=== PATIENT | male | born 1935 | race Caucasian/White ===

== ENCOUNTER 2017-02-21 16:35 | Inpatient (IN) ==
[2017-02-21] MEDS ORDERED: ASPIRIN 325 MG TABLET PO STA (16:48)
[2017-02-21] MEDS ORDERED: ONDANSETRON 4 MG/2 ML VIAL IV STA (16:48)
[2017-02-21] MEDS ORDERED: SODIUM CHLORIDE 0.9% 500 ML IV STA (16:48)
[2017-02-21] MEDS ORDERED: NITROGLYCERIN 2% OINT 1 INCH/GM PACK TOP STA (16:48)
[2017-02-21] MEDS ORDERED: MORPHINE 2 MG/1 ML SYRINGE IV STA (16:48)
[2017-02-21] MEDS ORDERED: DILTIAZEM 50 MG/10 ML VIAL IV STA (17:00)
[2017-02-21 17:02] LABS: Basophils % 0.6 % (0.0-0.8); Eosinophils # 0.1 10*3/uL (0.0-0.87); Eosinophils % 1.9 % (0.00-10.9); Hematocrit 36.4 VOL% (42.0-52.0); Hemoglobin 11.8 GM/DL (14.0-18.0); Immature Granulocytes % 0.4 %; Immature Granulocytes Absolute 0.02 #; Lymphocytes # 0.9 10*3/uL (1.4-4.0); Lymphocytes % 17.3 % (21.2-54.2); Mean Corpuscular HGB Conc 32.4 GM/DL (32-36); Mean Corpuscular Hemoglobin 30 PG (27-34); Mean Corpuscular Volume 92.9 FL (87-102); Mean Platelet Volume 9.8 FL (9.6-12.0); Monocytes # 0.4 10*3/uL (0.11-0.8); Monocytes % 8.2 % (1.7-12.7); Neutrophils # 3.7 10*3/uL (1.4-7.4); Neutrophils % 71.6 % (38.7-73.9); Platelet Count 153 T/CUMM (130-400); Red Blood Count 3.92 MC/CUMM (3.8-5.5); Red Cell Distribution Width 14.7 % (9.3-17.3); White Blood Count 5.1 T/CUMM (4-12)
[2017-02-21] MEDS ORDERED: NITROGLYCERIN 2% OINT 1 INCH/GM PACK TOP ONE (17:13)
[2017-02-21] MEDS ORDERED: DILTIAZEM 100 MG VIAL.ADD IV ONE (17:13)
[2017-02-21] MEDS ORDERED: ONDANSETRON 4 MG/2 ML VIAL ONE (17:13)
--- NOTE | 2017-02-21 17:13 | XRay Report ---
XR chest 1V portable Indication: Chest pain. Chest one view: No comparison. Heart size is normal. Central pulmonary vascular congestion is present with diffuse increased interstitial prominence of the lungs. Somewhat more focal process in the right lung base may be present as well with some scattered air bronchograms and trace pleural effusions. Subpleural septal thickening is noted at both calcemic sulci. Impression: CHF decompensation. Consider early right basilar pneumonia. PROCEDURE INTERPRETED AT [facility] DEPARTMENT OF RADIOLOGY Final Report Signed by: Omar Bautista M.D.
[2017-02-21] MEDS ORDERED: ASPIRIN 325 MG TABLET ONE (17:14)
[2017-02-21] MEDS ORDERED: MORPHINE 2 MG/1 ML SYRINGE ONE (17:14)
[2017-02-21] MEDS ORDERED: DILTIAZEM 50 MG/10 ML VIAL IV ONE (17:14)
[2017-02-21 17:17] LABS: Partial Thromboplastin Time 27.2 SECS (0-40)
[2017-02-21 17:38] LABS: Albumin 3.5 G/DL (3.4-5.0); Bilirubin,Total 0.5 MG/DL (0.2-1.0); Calcium 8.4 MG/DL (8.5-10.1); Magnesium 1.8 MG/DL (1.8-2.4); Osmolality,Calculated 292.7 MOS/KG (273-304); Total Protein 6.4 G/DL (6.4-8.3)
[2017-02-21] MEDS: DILTIAZEM INJ 100 MG in SODIUM CHLORIDE 0.9% 100 ML IV SCH (17:42)
--- NOTE | 2017-02-21 17:42 | Emergency Department Note ---
ILela Gwan, am scribing for, and in the presence of, Fahad Serra MD 17:10. IPonce Robert M, MD, personally performed the services described in this documentation, ascribed by Vipul Vogel in my presence, and it is both accurate and complete [id number] . Arrival - Arrival Chief Complaint: Arrhythmia/Palpitations Stated Complaint: chest pain ED Nursing Triage Note: C/o iregular heart beat and SOB. Onset 2 days ago. Denies any chest pain Mode of Arrival: Stretcher Limitations: No Limitations Source: Patient, Family (Borther ), Old Records Reviewed, RN Notes Reviewed - History of Present Illness HPI Narrative: Patient is a 81 y/o white male who presents to the ED with a c/o SOB, irregular heart beat and chest pain with an onset today. Brother stated that he received a phone call form the patient stating that his heart was "fluttering" and that he was having a hard time breathing. Brother then alerted staff at [facility] which prompted visit to the ED for further evaluation. Brother confirmed that pt has a PMHx of Parkinson's Disease, that pt has a chronic garbled speech and that she is followed by Dr. Chávez. During exam, pt stated that he is not having any sxs now while in ED. Onset (ago): day(s) Consistency: constant Severity: moderate Allergies/Adverse Reactions: Allergies Allergy/AdvReac Type Severity Reaction Status Date / Time codeine Allergy Unknown/Unable Verified 02/21/17 16:40 to obtain Home Medications: Home Medications Medication Instructions Recorded Confirmed Type Aspirin [Ecotrin] 81 mg PO BEDTIME 01/29/15 02/21/17 History Finasteride 5 tablet PO DAILY 01/29/15 02/21/17 History Mirtazapine [Remeron] 30 mg PO BEDTIME 01/29/15 02/21/17 History Montelukast Tab [Singulair Tab] 10 mg PO BEDTIME 01/29/15 02/21/17 History Multivit-Min/FA/Lycopen/Lutein 1 each PO DAILY 01/29/15 02/21/17 History [Centrum Silver Tablet] Nortriptyline [Pamelor] 75 mg PO BEDTIME 01/29/15 02/21/17 History Pantoprazole Tab [Protonix Tab] 40 mg PO DAILY 01/29/15 02/21/17 History Primidone [Mysoline] 50 mg PO BEDTIME 01/29/15 02/21/17 History Sotalol [Betapace] 80 mg PO BID 01/29/15 02/21/17 History Tamsulosin [Flomax] 0.4 mg PO DAILY 01/29/15 02/21/17 History Topiramate [Topamax] 50 mg PO BID 01/29/15 02/21/17 History Acetaminophen/Caffeine [Excedrin 1 each PO DAILY PRN 02/21/17 02/21/17 History Tension Headache Cplt] Donepezil [Aricept] 5 mg PO BEDTIME 02/21/17 02/21/17 History Meloxicam [Mobic] 7.5 mg PO BID 02/21/17 02/21/17 History Multivit-Min/FA/Lutein/Zeaxant 1 each PO DAILY 02/21/17 02/21/17 History [Icaps Mv Tablet] Naproxen Sodium [Aleve] 440 mg PO BID 02/21/17 02/21/17 History Nitroglycerin Sl Tab [Nitrostat] 0.4 mg SL Q5M PRN 02/21/17 02/21/17 History OLANZapine [Olanzapine] 10 mg PO BEDTIME 02/21/17 02/21/17 History Review of System - Review of System 12 point system: reviewed and no additional remarkable complaints except as stated - Review of System Constitutional: Absent: chills, fever Eyes: Absent: discharge Head/Ears/Nose/Throat: Absent: earache Respiratory: Present: as per HPI, other (shortness of breathe ). Absent: cough Cardiovascular: Present: as per HPI, chest pain, palpitations Gastrointestinal: Absent: nausea, vomiting Genitourinary male: Absent: urgency, dysuria Musculoskeletal: Absent: arm pain, back pain, leg pain Skin: Absent: rash, lesions Neurological: Absent: headache, weakness Medical,Surgical,& Family Hx - Medical History Cardio: History of: Cardiac Dysrhythmia, CAD, Hypertension Respiratory: History of: COPD Genitourinary: History of: Prostate Problems - Surgical History Cardiac Surgeries: Sugical HX of: Cardiac Catheterization - Social History Smoking Status: Former smoker Frequency of Alcohol Use: None Type of Drug Use: None Exam Vital Signs: Vital Signs Temperature 97.8 F 02/21/17 16:40 Pulse Rate 108 H 02/21/17 18:02 Respiratory Rate 20 02/21/17 18:02 Blood Pressure 140/68 02/21/17 18:02 O2 Sat by Pulse Oximetry 96 02/21/17 18:02 - General General appearance: alert, in no apparent distress - Head Head exam: Present: atraumatic, normocephalic - Eye Eye exam: Present: normal appearance, PERRL, EOMI - ENT ENT exam: Present: normal oropharynx, mucous membranes moist, TM's normal bilaterally, normal external ear exam - Neck Neck exam: Present: full ROM, trachea midline. Absent: tenderness - Chest Chest inspection: Present: symmetric chest wall rise. Absent: tenderness - Respiratory Respiratory exam: Present: wheezes (left side anterior wheeze noted ) - Cardiovascular Cardiovascular exam: Present: normal rhythm, tachycardia - Abdominal Exam Abdominal exam: Present: soft, normal bowel sounds. Absent: distention, tenderness - Extremities Exam Extremities exam: Present: full ROM. Absent: tenderness - Back Exam Back exam: Present: full ROM. Absent: tenderness - Neurological Exam Neurological exam: Present: alert, oriented X3, CN II-XII intact. Absent: motor sensory deficit - Psychiatric Psychiatric exam: Present: normal affect, normal mood - Skin Skin exam: Present: warm, dry, intact, normal color Course - Consultations Consultation #1: Dr. Dsouza was paged. In addition to the usual medications, he request the patient be given 2 g of magnesium IV and be started on vitamin C 1000 mg p.o. twice daily. Time: 18:28 Results - Labs CBC & BMP: 02/21/17 16:48 02/21/17 17:21 Lab Results: I have reviewed the patients labs Labs: Lab Results WBC 5.1 T/CUMM (4-12) 02/21/17 16:48 RBC 3.92 MC/CUMM (3.8-5.5) 02/21/17 16:48 Hgb 11.8 GM/DL (14.0-18.0) L 02/21/17 16:48 Hct 36.4 VOL% (42.0-52.0) L 02/21/17 16:48 MCV 92.9 FL (87-102) 02/21/17 16:48 MCH 30 PG (27-34) 02/21/17 16:48 MCHC 32.4 GM/DL (32-36) 02/21/17 16:48 RDW 14.7 % (9.3-17.3) 02/21/17 16:48 Plt Count 153 T/CUMM (130-400) 02/21/17 16:48 MPV 9.8 FL (9.6-12.0) 02/21/17 16:48 Neut % (Auto) 71.6 % (38.7-73.9) 02/21/17 16:48 Lymph % (Auto) 17.3 % (21.2-54.2) L 02/21/17 16:48 [place] % (Auto) 8.2 % (1.7-12.7) 02/21/17 16:48 Eos % (Auto) 1.9 % (0.00-10.9) 02/21/17 16:48 Baso % (Auto) 0.6 % (0.0-0.8) 02/21/17 16:48 Neut # (Auto) 3.7 10*3/uL (1.4-7.4) 02/21/17 16:48 Lymph # (Auto) 0.9 10*3/uL (1.4-4.0) L 02/21/17 16:48 [place] # (Auto) 0.4 10*3/uL (0.11-0.8) 02/21/17 16:48 Eos # (Auto) 0.1 10*3/uL (0.0-0.87) 02/21/17 16:48 Baso # (Auto) 0.0 10*3/uL (0.0-0.2) 02/21/17 16:48 Immature Gran % 0.4 % 02/21/17 16:48 Nucleated RBC % 0.0 /100WBC 02/21/17 16:48 Immature Gran # 0.02 # 02/21/17 16:48 Nucleated RBCs # 0.00 10*3/uL 02/21/17 16:48 INR 1.0 02/21/17 16:48 PT Patient/Control Mix 11.0 SECS 02/21/17 16:48 Circ Anticoag PTT 27.2 SECS (0-40) 02/21/17 16:48 Sodium 145 MMOL/L (136-145) 02/21/17 17:21 Potassium 4.0 MMOL/L (3.5-5.1) 02/21/17 17:21 Chloride 113 MMOL/L (98-107) H 02/21/17 17:21 Carbon Dioxide 25 MMOL/L (21-32) 02/21/17 17:21 Anion Gap 11.0 MMOL/L (5.0-15.0) 02/21/17 17:21 BUN 25 MG/DL (7-18) H 02/21/17 17:21 Creatinine 1.30 MG/DL (0.70-1.30) 02/21/17 17:21 GFR Calculation 55 ML/MIN 02/21/17 17:21 BUN/Creatinine Ratio 19.00 RATIO (6.00-20.00) 02/21/17 17:21 Glucose 111 MG/DL (74-106) H 02/21/17 17:21 Calculated Osmolality 292.7 MOS/KG (273-304) 02/21/17 17:21 Calcium 8.4 MG/DL (8.5-10.1) L 02/21/17 17:21 Magnesium 1.8 MG/DL (1.8-2.4) 02/21/17 17:21 Total Bilirubin 0.50 MG/DL (0.2-1.0) 02/21/17 17:21 AST 20 U/L (0-37) 02/21/17 17:21 ALT 19 U/L (16-61) 02/21/17 17:21 Alkaline Phosphatase 90 U/L (45-117) 02/21/17 17:21 Troponin I 0.030 NG/ML (0.00-0.045) 02/21/17 16:48 B-Natriuretic Peptide 334 PG/ML (2-100) H 02/21/17 16:48 Total Protein 6.4 G/DL (6.4-8.3) 02/21/17 17:21 Albumin 3.5 G/DL (3.4-5.0) 02/21/17 17:21 Globulin 2.9 G/DL (2.3-3.5) 02/21/17 17:21 Albumin/Globulin Ratio 1.2 RATIO (1.1-2.2) 02/21/17 17:21 Lipase 199.0 U/L (73-393) 02/21/17 17:21 - EKG EKG results: interpreted by NILSA (afib rvr) Disposition Clinical Impression: Atrial fibrillation Case discussed with: patient, patient's family Disposition: Still a Patient Condition: Stable Instructions: Atrial Fibrillation (ED) Time of Disposition: 18:30
[2017-02-21] MEDS ORDERED: PROMETHAZINE 25 MG TABLET PO PRN (18:31)
[2017-02-21] MEDS ORDERED: MAGNESIUM SULF RIDER 4 GM in PREMIX 1 EACH IV PRN (18:44)
[2017-02-21] MEDS ORDERED: MAGNESIUM SULF RIDER 2 GM in PREMIX 1 EACH IV PRN (18:44)
[2017-02-21] MEDS ORDERED: POTASSIUM CHLORIDE 20 MEQ TABLET PO PRN (18:44)
[2017-02-21] MEDS: ASCORBIC ACID 500 MG TABLET PO SCH (21:31)
[2017-02-21 21:48] LABS: Troponin I Only 0.032 NG/ML (0.00-0.045)
[2017-02-22] MEDS ORDERED: ALBUTEROL/IPRATROPIUM 3 ML NEB RESP TX STA (01:29)
[2017-02-22] MEDS ORDERED: ALBUTEROL/IPRATROPIUM 3 ML NEB RESP TX PRN (01:30)
[2017-02-22] MEDS: DILTIAZEM INJ 100 MG in SODIUM CHLORIDE 0.9% 100 ML IV SCH ×2 (03:31→22:22)
[2017-02-22 04:50] LABS: Troponin I Only 0.032 NG/ML (0.00-0.045)
[2017-02-22] MEDS ORDERED: CAFFEINE PO PRN (08:21)
[2017-02-22] MEDS ORDERED: ACETAMINOPHEN PO PRN (08:21)
[2017-02-22] MEDS ORDERED: NITROGLYCERIN SL 0.4 MG TABLET SL PRN (08:21)
--- NOTE | 2017-02-22 08:25 | Cardiology History & Physical ---
<Susan Mosley E - Last Filed: 02/22/17 08:03> Assessment and Plan - Time spent with patient Time spent with patient: Greater than 30 minutes (1) Atrial fibrillation with RVR Status: Acute Assessment and plan: SEE PLAN OF CARE LISTED BELOW Current Visit: Yes (2) Shortness of breath Status: Acute Assessment and plan: SEE PLAN OF CARE LISTED BELOW Current Visit: Yes (3) CHF (congestive heart failure), NYHA class III Status: Acute Assessment and plan: SEE PLAN OF CARE LISTED BELOW Current Visit: Yes Qualifiers: Congestive heart failure type: diastolic (4) Community acquired pneumonia Status: Acute Assessment and plan: SEE PLAN OF CARE LISTED BELOW Current Visit: Yes (5) Hypertension Status: Chronic Assessment and plan: SEE PLAN OF CARE LISTED BELOW Current Visit: Yes (6) Dyslipidemia Status: Chronic Assessment and plan: SEE PLAN OF CARE LISTED BELOW Current Visit: Yes (7) Risk for falls Status: Chronic Assessment and plan: SEE PLAN OF CARE LISTED BELOW Current Visit: Yes (8) Parkinsons disease Status: Chronic Assessment and plan: SEE PLAN OF CARE LISTED BELOW Current Visit: Yes (9) Hypomagnesemia Status: Acute Assessment and plan: SEE PLAN OF CARE LISTED BELOW Current Visit: Yes (10) CAD (coronary artery disease) Status: Chronic Assessment and plan: SEE PLAN OF CARE LISTED BELOW Current Visit: Yes History of Present Illness Chief complaint: SOB, heart racing History of present illness: SURG PHYSICIAN ASST: DR. CHÁVEZ Mr. Jimenez, 81WM, routinely followed by Dr. Chávez. He was last seen in cardiology clinic July 25, 2016. Risk factors include: Advanced age, known coronary artery disease (status post PCI to RCA 2004), hypertension, dyslipidemia, family history premature coronary artery disease, and sedentary lifestyle. History of paroxysmal atrial fibrillation for which he takes Sotalol. (Due to his advanced age and high falls risk, he takes aspirin only for stroke prevention.) History of Parkinson's disease. Last stress test December 21, 2015 with EF 62% Patient contacted his brother last evening after experiencing worsening shortness of breath. He states he felt his heart racing and as if he could not breathe. He was brought to the emergency department of [facility], found to be in atrial fibrillation with rapid ventricular response, acute CHF and possible pneumonia. He was started on IV diltiazem for rate control. He has been housed in our telemetry unit overnight. Patient's heart rate continues to be uncontrolled around 120 bpm. He continues to be short of breath, possibly minimally better overnight. He denies chest pain, heaviness or tightness. Patient reports that he often feels his heart racing however this was sustained last evening. He has been short of breath over the past 3-4 days but seemed to worsen last evening when he summoned help. He has been orthopneic last evening requiring head of bed to be at 45, JVD 4 cm to jaw. He denies cough or known fever. This morning, I will initiate IV diuretics, strict intake and output, daily weights. Hopefully we can transition him from IV diltiazem to oral calcium channel fareed today will work toward this. IV Levaquin will be initiated to treat his suspected community-acquired pneumonia, carefully watching telemetry monitoring for QT prolongation and arrhythmia. Incentive spirometry and pulmonary toilet will ensue. I do not see a recent echocardiogram and this may be considered in this workup. Will discuss with Dr. Mathew and await additional recommendations. ASSESSMENT/PLAN: 1. ATRIAL FIBRILLATION WITH RVR - currently on IV diltiazem. Will adjust accordingly for better control. Hopefully, we can transition to an oral agent soon. Continue sotalol. Patient has been maintained on aspirin only for stroke prevention due to high falls risk and advanced age. 2. ACUTE CHF - acute CHF secondary to suspected diastolic dysfunction, NYHA CLASS III. IV Lasix, strict intake and output, daily weights. Stress test December 2015 revealed an EF of 62%. Once heart rate is controlled, may benefit from echo. 3. SUSPECTED CAP - 4. HYPERTENSION - usually well controlled. Will adjust medications as needed during hospital stay 5. DYSLIPIDEMIA - continue lipid-lowering agent. Fasting lipid profile in the morning 6. KNOWN CAD - 2005 PCI to RCA in [place], [place]. Troponins negative. No compressive chest pain. 7. PARKINSON'S DISEASE - continue his home meds. 8. HIGH FALLS RISK - Bandon falls prevention protocol 9. HYPOMAGNESEMIA - replace per protocol this morning. Recheck BMP, Mg+ at 2pm today and daily. Home Medications Medication Instructions Recorded Confirmed Type Aspirin [Ecotrin] 81 mg PO BEDTIME 01/29/15 02/21/17 History Finasteride 5 tablet PO DAILY 01/29/15 02/21/17 History Mirtazapine [Remeron] 30 mg PO BEDTIME 01/29/15 02/21/17 History Montelukast Tab [Singulair Tab] 10 mg PO BEDTIME 01/29/15 02/21/17 History Multivit-Min/FA/Lycopen/Lutein 1 each PO DAILY 01/29/15 02/21/17 History [Centrum Silver Tablet] Nortriptyline [Pamelor] 75 mg PO BEDTIME 01/29/15 02/21/17 History Pantoprazole Tab [Protonix Tab] 40 mg PO DAILY 01/29/15 02/21/17 History Primidone [Mysoline] 50 mg PO BEDTIME 01/29/15 02/21/17 History Sotalol [Betapace] 80 mg PO BID 01/29/15 02/21/17 History Tamsulosin [Flomax] 0.4 mg PO DAILY 01/29/15 02/21/17 History Topiramate [Topamax] 50 mg PO BID 01/29/15 02/21/17 History Acetaminophen/Caffeine [Excedrin 1 each PO DAILY PRN 02/21/17 02/21/17 History Tension Headache Cplt] Donepezil [Aricept] 5 mg PO BEDTIME 02/21/17 02/21/17 History Meloxicam [Mobic] 7.5 mg PO BID 02/21/17 02/21/17 History Multivit-Min/FA/Lutein/Zeaxant 1 each PO DAILY 02/21/17 02/21/17 History [Icaps Mv Tablet] Naproxen Sodium [Aleve] 440 mg PO BID 02/21/17 02/21/17 History Nitroglycerin Sl Tab [Nitrostat] 0.4 mg SL Q5M PRN 02/21/17 02/21/17 History OLANZapine [Olanzapine] 10 mg PO BEDTIME 02/21/17 02/21/17 History Allergies Allergy/AdvReac Type Severity Reaction Status Date / Time codeine Allergy Unknown/Unable Verified 02/21/17 16:40 to obtain Review of systems: REVIEW OF SYSTEMS: - Constitutional Constitutional: Present: Fatigue. Absent: syncope, anorexia, night sweats - EENT Eyes: Absent: blurry vision, loss of vision, diplopia Ears: Absent: decreased hearing, ear pain, ear discharge - Cardiovascular Cardiovascular: Denies: chest pain with exertion. Dyspnea at rest and on exertion. Denies edema, frequent palpitations. Absent: chest pain with deep breath, claudication - Respiratory Respiratory: Present: BLACK, denies cough. Denies hemoptysis - Gastrointestinal Gastrointestinal: Denies: constipation. Absent: abdominal pain, hematemesis, hematochezia, melena, change in bowel habits, nausea - Genitourinary Genitourinary: Absent: difficulty urinating, dysuria, urinary hesitancy, flank pain - Musculoskeletal Musculoskeletal: Present: back pain Absent: joint swelling, muscle cramps, muscle weakness - Neurological Neurological: Present: Poor gait without frequent falls. Patient reports he has not fallen in greater than 1 year. Tremors constant and shuffling gait present. Absent: dizziness, hemiparesis - Psychiatric Psychiatric: Absent: anxiety, depression, difficulty concentrating - Endocrine Endocrine: Present: fatigue. Absent: cold intolerance, heat intolerance, polyuria, polyphagia, polydipsia - Hematologic/Lymphatic Hematologic/Lymphatic: Present: easy bruising. Absent: easy bleeding -Integumentary Integumentary: Absent: lesions, rashes, skin breakdown Medical,Surgical,& Family Hx - Medical History Cardio: History of: Cardiac Dysrhythmia, CAD, Hypertension Neurology: History of: Parkinson's Disease Respiratory: History of: COPD Genitourinary: History of: Prostate Problems Musculoskeletal: No history of: Amputation - Surgical History Cardiac Surgeries: Sugical HX of: Cardiac Catheterization Thoracic Surgeries: Patient denies;: Organ Transplant Abdominal Surgeries: Patient denies: Abdominal Surgery Reproductive Surgeries: Patient denies;: Genitourinary Surgery - Social History Smoking Status: Former smoker Have you smoked in the last 12 months: No Frequency of Alcohol Use: None Type of Drug Use: None Functional capacity: uses cane/walker Cardiology Physical Exam - Constitutional Vitals: Vital Signs Temp Pulse Resp BP Pulse Ox 98 F 114 H 18 115/65 96 02/22/17 07:33 02/22/17 07:33 02/22/17 07:33 02/22/17 07:33 02/22/17 07:33 Intake and Output 02/21/17 02/22/17 02/22/17 23:59 07:59 15:59 Intake Total 760 / 760 220 / 220 Output Total 100 / 100 Balance 760 / 760 120 / 120 Intake: IV 520 / 520 100 / 100 Cardizem Inj 100 mg In Ns 100 / 100 100 ml @ 10 MG/HR 10 mls /hr IV TITRATE MERCEDES Rx#: [id number] Ns 500 ml @ 999 mls/hr IV 500 / 500 1X ED BOLUS STA Rx#: [id number] Oral 240 / 240 120 / 120 Output: Urine 100 / 100 Other: Voiding Method Urinal Weight 77.678 kg 77.564 kg Patient Weight 02/22/17 23:59 Weight 77.564 kg Exam: General: [Elderly gentleman who looks his stated age. Tachypneic. Pleasant and cooperative. ] HEENT: [PERRL, normocephalic, atraumatic. Mucous membranes moist. No jaundice noted. Conjunctiva moist and clear, sclerae anicteric] Neck: 4 cm JVD to jaw. No thyromegaly appreciated. No lymphadenopathy. No carotid bruit appreciated Cardiac: [Irregularly irregular rhythm, tachycardic rate. [No obvious murmur rub or gallop.] Lungs: [Respiratory crackles noted posteriorly midway up both lung valenzuela, rhonchi noted throughout. ] Oxygen in use via nasal cannula Abdomen: Soft, bowel sounds normoactive. Nontender and nondistended. No abdominal bruit or thrill noted. No masses noted. Musculoskeletal: No fluid collection. Decreased range of motion is noted. Extremities: No clubbing, cyanosis noted. [ No edema noted.] Upper extremity pulses 2+. Lower extremity pulses 2+. Capillary refill less than 3 seconds. Skin: No unusual lesions or rashes. No skin breakdown appreciated. Neuro: Awake, alert and oriented 3. Moves all extremities well without hemiparesis or paralysis. Parkinsonian tremor present. Result/EKG - Labs CBC & BMP: 02/21/17 16:48 02/21/17 17:21 Lab Results: I have reviewed the past 24 hour labs Labs: Laboratory Results - last 24 hr 02/21/17 02/21/17 02/21/17 16:48 16:48 16:48 WBC 5.1 RBC 3.92 Hgb 11.8 L Hct 36.4 L MCV 92.9 MCH 30 MCHC 32.4 RDW 14.7 Plt Count 153 MPV 9.8 Neut % (Auto) 71.6 Lymph % (Auto) 17.3 L Winn % (Auto) 8.2 Eos % (Auto) 1.9 Baso % (Auto) 0.6 Neut # (Auto) 3.7 Lymph # (Auto) 0.9 L Winn # (Auto) 0.4 Eos # (Auto) 0.1 Baso # (Auto) 0.0 Immature Gran % 0.4 Nucleated RBC % 0.0 Immature Gran # 0.02 Nucleated RBCs # 0.00 INR 1.0 PT Patient/Control Mix 11.0 Circ Anticoag PTT 27.2 Sodium Potassium Chloride Carbon Dioxide Anion Gap BUN Creatinine GFR Calculation BUN/Creatinine Ratio Glucose Calculated Osmolality Calcium Magnesium Total Bilirubin AST ALT Alkaline Phosphatase Total Creatine Kinase CK-MB (CK-2) Troponin I B-Natriuretic Peptide 334 H Total Protein Albumin Globulin Albumin/Globulin Ratio Lipase 02/21/17 02/21/17 02/21/17 16:48 17:21 21:02 WBC RBC Hgb Hct MCV MCH MCHC RDW Plt Count MPV Neut % (Auto) Lymph % (Auto) Winn % (Auto) Eos % (Auto) Baso % (Auto) Neut # (Auto) Lymph # (Auto) Winn # (Auto) Eos # (Auto) Baso # (Auto) Immature Gran % Nucleated RBC % Immature Gran # Nucleated RBCs # INR PT Patient/Control Mix Circ Anticoag PTT Sodium 145 Potassium 4.0 Chloride 113 H Carbon Dioxide 25 Anion Gap 11.0 BUN 25 H Creatinine 1.30 GFR Calculation 55 BUN/Creatinine Ratio 19.00 Glucose 111 H Calculated Osmolality 292.7 Calcium 8.4 L Magnesium 1.8 Total Bilirubin 0.50 AST 20 ALT 19 Alkaline Phosphatase 90 Total Creatine Kinase 26 L CK-MB (CK-2) 1.6 Troponin I 0.030 0.032 B-Natriuretic Peptide Total Protein 6.4 Albumin 3.5 Globulin 2.9 Albumin/Globulin Ratio 1.2 Lipase 199.0 02/22/17 03:34 WBC RBC Hgb Hct MCV MCH MCHC RDW Plt Count MPV Neut % (Auto) Lymph % (Auto) Winn % (Auto) Eos % (Auto) Baso % (Auto) Neut # (Auto) Lymph # (Auto) Winn # (Auto) Eos # (Auto) Baso # (Auto) Immature Gran % Nucleated RBC % Immature Gran # Nucleated RBCs # INR PT Patient/Control Mix Circ Anticoag PTT Sodium Potassium Chloride Carbon Dioxide Anion Gap BUN Creatinine GFR Calculation BUN/Creatinine Ratio Glucose Calculated Osmolality Calcium Magnesium Total Bilirubin AST ALT Alkaline Phosphatase Total Creatine Kinase 29 L CK-MB (CK-2) 2.0 Troponin I 0.032 B-Natriuretic Peptide Total Protein Albumin Globulin Albumin/Globulin Ratio Lipase - Diagnostic Findings Procedure: Chest x-ray: report reviewed by me - EKG EKG results: interpreted by me EKG shows: atrial fibrillation (RVR) Quality Measures - Stroke Onset of Symptoms Date: 02/19/17 <Seema Mathew - Last Filed: 02/22/17 13:32> Assessment and Plan - Time spent with patient Time spent with patient: Greater than 30 minutes (Exam interview documentation) (1) SVT (supraventricular tachycardia) Status: Acute Current Visit: Yes (2) Pulmonary edema Status: Acute Current Visit: Yes (3) High risk medication use Status: Acute Current Visit: Yes (4) Shortness of breath Status: Acute Current Visit: Yes (5) Hypertension Status: Chronic Current Visit: Yes (6) Dyslipidemia Status: Chronic Current Visit: Yes (7) Risk for falls Status: Chronic Current Visit: Yes (8) Parkinsons disease Status: Chronic Current Visit: Yes (9) CAD (coronary artery disease) Status: Chronic Current Visit: Yes (10) Paroxysmal atrial fibrillation Status: Chronic Current Visit: Yes History of Present Illness History of present illness: Mr. JIMENEZ is a 81 year old male patient seen with Ms. Susan vargas. He is 81 years of age and has a history of paroxysmal atrial relation with preserved ejection fraction he has had a couple of weeks several months of worsening shortness of breath he has Parkinson disease and has just not done well recently. He does ambulate with the assistance of a walker he came in last night with worsening shortness of breath chest x-ray looks like he has a right effusion and fluid in the right major fissure. His exam would suggest that he might have early pneumonitis. His heart rate was up his initial EKG looked like either atrial tachycardia or atrial flutter he has been started on Cardizem infusion looks more like atrial fibrillation nonconducted APCs at this time is very difficult for me to tell I will get an EKG. The telemetry strips are limited. I saw the patient examined the patient discussed with Ms. Susan Mosley NP the patient's family 2 brothers are at the bedside. His is he lives in a personal intermediate he has a son that is a strange that lives in [place]. He does appear to have some mild volume overload and pulmonary edema but he does not have peripheral edema or total body edema. We will try diuresis I will expand his antibiotic coverage to Rocephin and clindamycin. He resides in a assisted living facility but also appears to be high risk for aspiration pneumonitis. He denies coughing whenever he eats. I will get a transthoracic echocardiogram as well. I will ask pulmonary to see with their recommendations continue antibiotics and nebs for now. Cardiology Physical Exam - Constitutional Vitals: Vital Signs Temp Pulse Resp BP Pulse Ox 97.9 F 81 20 123/74 95 02/22/17 12:00 02/22/17 12:00 02/22/17 12:00 02/22/17 12:00 02/22/17 12:00 Intake and Output 02/21/17 02/22/17 02/22/17 23:59 07:59 15:59 Intake Total 760 / 760 220 / 220 Output Total 100 / 100 Balance 760 / 760 120 / 120 Intake: IV 520 / 520 100 / 100 Cardizem Inj 100 mg In Ns / 100 / 100 100 ml @ 10 MG/HR 10 mls /hr IV TITRATE MERCEDES Rx#: [id number] Ns 500 ml @ 999 mls/hr IV 500 / 500 1X ED BOLUS STA Rx#: [id number] Oral 240 / 240 120 / 120 Output: Urine 100 / 100 Other: Voiding Method Urinal Weight 77.678 kg 77.564 kg Patient Weight 02/22/17 23:59 Weight 77.564 kg Exam: He has rales but he also has rhonchi. He has diminished breath sounds even in the left base. He has no dullness to percussion. His cardiac exam is irregular he has no gallop that I can auscultate no diagnosable or significantly audible murmur Result/EKG - Labs CBC & BMP: 02/21/17 16:48 02/21/17 17:21 Labs: Laboratory Results - last 24 hr 02/21/17 02/21/17 02/21/17 16:48 16:48 16:48 WBC 5.1 RBC 3.92 Hgb 11.8 L Hct 36.4 L MCV 92.9 MCH 30 MCHC 32.4 RDW 14.7 Plt Count 153 MPV 9.8 Neut % (Auto) 71.6 Lymph % (Auto) 17.3 L Winn % (Auto) 8.2 Eos % (Auto) 1.9 Baso % (Auto) 0.6 Neut # (Auto) 3.7 Lymph # (Auto) 0.9 L Winn # (Auto) 0.4 Eos # (Auto) 0.1 Baso # (Auto) 0.0 Immature Gran % 0.4 Nucleated RBC % 0.0 Immature Gran # 0.02 Nucleated RBCs # 0.00 INR 1.0 PT Patient/Control Mix 11.0 Circ Anticoag PTT 27.2 Sodium Potassium Chloride Carbon Dioxide Anion Gap BUN Creatinine GFR Calculation BUN/Creatinine Ratio Glucose Calculated Osmolality Calcium Magnesium Total Bilirubin AST ALT Alkaline Phosphatase Total Creatine Kinase CK-MB (CK-2) Troponin I B-Natriuretic Peptide 334 H Total Protein Albumin Globulin Albumin/Globulin Ratio Lipase 02/21/17 02/21/17 02/21/17 16:48 17:21 21:02 WBC RBC Hgb Hct MCV MCH MCHC RDW Plt Count MPV Neut % (Auto) Lymph % (Auto) Winn % (Auto) Eos % (Auto) Baso % (Auto) Neut # (Auto) Lymph # (Auto) Winn # (Auto) Eos # (Auto) Baso # (Auto) Immature Gran % Nucleated RBC % Immature Gran # Nucleated RBCs # INR PT Patient/Control Mix Circ Anticoag PTT Sodium 145 Potassium 4.0 Chloride 113 H Carbon Dioxide 25 Anion Gap 11.0 BUN 25 H Creatinine 1.30 GFR Calculation 55 BUN/Creatinine Ratio 19.00 Glucose 111 H Calculated Osmolality 292.7 Calcium 8.4 L Magnesium 1.8 Total Bilirubin 0.50 AST 20 ALT 19 Alkaline Phosphatase 90 Total Creatine Kinase 26 L CK-MB (CK-2) 1.6 Troponin I 0.030 0.032 B-Natriuretic Peptide Total Protein 6.4 Albumin 3.5 Globulin 2.9 Albumin/Globulin Ratio 1.2 Lipase 199.0 02/22/17 02/22/17 03:34 10:37 WBC RBC Hgb Hct MCV MCH MCHC RDW Plt Count MPV Neut % (Auto) Lymph % (Auto) Winn % (Auto) Eos % (Auto) Baso % (Auto) Neut # (Auto) Lymph # (Auto) Winn # (Auto) Eos # (Auto) Baso # (Auto) Immature Gran % Nucleated RBC % Immature Gran # Nucleated RBCs # INR PT Patient/Control Mix Circ Anticoag PTT Sodium Potassium Chloride Carbon Dioxide Anion Gap BUN Creatinine GFR Calculation BUN/Creatinine Ratio Glucose Calculated Osmolality Calcium Magnesium Total Bilirubin AST ALT Alkaline Phosphatase Total Creatine Kinase 29 L 37 L D CK-MB (CK-2) 2.0 2.2 Troponin I 0.032 0.027 B-Natriuretic Peptide Total Protein Albumin Globulin Albumin/Globulin Ratio Lipase - EKG EKG results: interpreted by me (Atrial tachycardia possible atrial flutter)
[2017-02-22] MEDS ORDERED: MAGNESIUM SULF RIDER 4 GM in PREMIX 1 EACH IV PRN (08:26)
[2017-02-22] MEDS ORDERED: MAGNESIUM SULF RIDER 2 GM in PREMIX 1 EACH IV PRN (08:26)
[2017-02-22] MEDS ORDERED: ENOXAPARIN 80 MG/0.8 ML SYRINGE SUBCUT ONE (08:39)
--- NOTE | 2017-02-22 08:58 | EKG Report ---
Stationary ECG Study 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
[2017-02-22] MEDS ORDERED: PANTOPRAZOLE 40 MG TABLET PO SCH (09:00)
[2017-02-22] MEDS ORDERED: MELOXICAM 7.5 MG TABLET PO SCH (09:00)
[2017-02-22] MEDS ORDERED: NAPROXEN 500 MG TABLET PO SCH (09:00)
[2017-02-22] MEDS: SOTALOL 80 MG TABLET PO SCH ×2 (10:16→21:27)
[2017-02-22] MEDS: PANTOPRAZOLE 40 MG TABLET PO SCH (10:16)
[2017-02-22] MEDS: MULTIVITAMIN (CENTRUM) TABLET PO SCH (10:16)
[2017-02-22] MEDS: MULTIVITAMIN (OCUVITE) TABLET PO SCH (10:17)
[2017-02-22] MEDS: ASCORBIC ACID 500 MG TABLET PO SCH ×2 (10:17→21:32)
[2017-02-22] MEDS: TOPIRAMATE 25 MG TABLET PO SCH ×2 (10:18→21:32)
[2017-02-22] MEDS: TAMSULOSIN 0.4 MG CAPSULE PO SCH (10:18)
[2017-02-22] MEDS: FINASTERIDE 5 MG TABLET PO SCH (10:19)
[2017-02-22] MEDS: FUROSEMIDE 40 MG/4 ML VIAL IV SCH ×2 (10:23→15:52)
[2017-02-22] MEDS ORDERED: DOXYCYCLINE HYCLATE INJ 100 MG in SODIUM CHLORIDE 0.9% 100 ML IV SCH (11:00)
[2017-02-22 11:30] LABS: Troponin I Only 0.027 NG/ML (0.00-0.045)
--- NOTE | 2017-02-22 13:25 | EKG Report ---
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
[2017-02-22] MEDS: DILTIAZEM CD 120 MG CAPSULE PO SCH ×2 (13:42→20:49)
[2017-02-22] MEDS: CLINDAMYCIN INJ 300 MG in PREMIX 1 EACH IV SCH ×2 (13:42→21:46)
[2017-02-22 14:07] LABS: Calcium 8.5 MG/DL (8.5-10.1); Magnesium 1.8 MG/DL (1.8-2.4); Osmolality,Calculated 294.6 MOS/KG (273-304); Potassium 4.3 MMOL/L (3.5-5.1)
[2017-02-22] MEDS: cefTRIAXone 1,000 MG in SODIUM CHLORIDE 0.9% 100 ML IV SCH (14:13)
[2017-02-22] MEDS ORDERED: MORPHINE 2 MG/1 ML SYRINGE IV ONE (14:23)
--- NOTE | 2017-02-22 16:56 | Pulmonology Consult Note ---
Assessment and Plan (1) Atrial fibrillation with RVR Status: Acute Assessment and plan: Rate is better controlled. This certainly may be causing part of his congestive heart failure. Current Visit: Yes (2) CHF (congestive heart failure), NYHA class III Status: Acute Assessment and plan: He has peripheral edema paroxysmal nocturnal dyspnea cardiomegaly and interstitial infiltrates pleural effusions. Has fairly normal ejection fraction. BNP is mildly elevated at 334. I do think he has congestive heart failure and it may well be done by the atrial arrhythmias. However cannot rule out pneumonia. I am not certain about his Parkinson's history but if he does indeed have that then aspiration is a risk. May be worthwhile to have neurology see him. The patient does not know of any history of Parkinson's. However he does have some dementia. I will get a noncontrast chest CT tomorrow to see if the pattern of this is more like pneumonia than heart failure. In the meantime agree with empiric antibiotics. Current Visit: Yes Qualifiers: Congestive heart failure type: diastolic (3) Parkinsons disease Status: Chronic Assessment and plan: This is listed in his history. He is not on any Parkinson's medications. May have cerebellar tremor. Think a neurology consult would be helpful. If he does have Parkinson's and aspiration is certainly a risk Current Visit: Yes History of Present Illness Chief complaint: Shortness of breath History of present illness: Mr. JIMENEZ is a 81 year old male who was admitted with increased shortness of breath over the last 3-4 weeks. He has had a dry cough. There has been no purulent sputum. He has not had any fever or pleuritic pain. He has a remote history of smoking but none recently. It is reported in the chart that he has Parkinson's disease but I do not see any Parkinson's medications on his home medication list. He is on primidone which is normally given for cerebellar tremors. He denies any difficulty swallowing denies reflux or vomiting. Home Medications Medication Instructions Recorded Confirmed Type Aspirin [Ecotrin] 81 mg PO BEDTIME 01/29/15 02/21/17 History Finasteride 5 tablet PO DAILY 01/29/15 02/21/17 History Mirtazapine [Remeron] 30 mg PO BEDTIME 01/29/15 02/21/17 History Montelukast Tab [Singulair Tab] 10 mg PO BEDTIME 01/29/15 02/21/17 History Multivit-Min/FA/Lycopen/Lutein 1 each PO DAILY 01/29/15 02/21/17 History [Centrum Silver Tablet] Nortriptyline [Pamelor] 75 mg PO BEDTIME 01/29/15 02/21/17 History Pantoprazole Tab [Protonix Tab] 40 mg PO DAILY 01/29/15 02/21/17 History Primidone [Mysoline] 50 mg PO BEDTIME 01/29/15 02/21/17 History Sotalol [Betapace] 80 mg PO BID 01/29/15 02/21/17 History Tamsulosin [Flomax] 0.4 mg PO DAILY 01/29/15 02/21/17 History Topiramate [Topamax] 50 mg PO BID 01/29/15 02/21/17 History Acetaminophen/Caffeine [Excedrin 1 each PO DAILY PRN 02/21/17 02/21/17 History Tension Headache Cplt] Donepezil [Aricept] 5 mg PO BEDTIME 02/21/17 02/21/17 History Meloxicam [Mobic] 7.5 mg PO BID 02/21/17 02/21/17 History Multivit-Min/FA/Lutein/Zeaxant 1 each PO DAILY 02/21/17 02/21/17 History [Icaps Mv Tablet] Naproxen Sodium [Aleve] 440 mg PO BID 02/21/17 02/21/17 History Nitroglycerin Sl Tab [Nitrostat] 0.4 mg SL Q5M PRN 02/21/17 02/21/17 History OLANZapine [Olanzapine] 10 mg PO BEDTIME 02/21/17 02/21/17 History Allergies Allergy/AdvReac Type Severity Reaction Status Date / Time codeine Allergy Unknown/Unable Verified 02/21/17 16:40 to obtain 12 point system: reviewed and no additional remarkable complaints except as stated - Constitutional Constitutional: Present: fatigue - Cardiovascular Cardiovascular: Present: dyspnea, dyspnea on exertion - Respiratory Respiratory: Present: cough, dyspnea, dyspnea on exertion - Musculoskeletal Musculoskeletal: Present: back pain - Endocrine Endocrine: Present: fatigue - Hematologic/Lymphatic Hematologic/Lymphatic: Present: easy bruising Exam (Pulmonay) H&P - Constitutional Vitals: Period Temp Pulse Resp BP Sys/Spears Pulse Ox Last 24 Hr 97.8 F-98.5 F 22-132 18-22 109-143/61-99 94-100 Exam: Vital signs normal. Temperature 98.1. HEENT: Pupils react to light. He has arcus senilis. Throat is clear. Neck supple no bruits. Chest reveals rales bilaterally in the bases. There are a few scattered rhonchi. Heart irregular. I do not hear any murmurs. Abdomen soft nontender no masses. Bowel sounds present. Extremities she has 1-2+ pitting edema in both lower extremities. He does not have any cogwheeling. Medical,Surgical,& Family Hx - Medical History Cardio: History of: Cardiac Dysrhythmia, CAD, Hypertension Neurology: History of: Parkinson's Disease Respiratory: History of: COPD Genitourinary: History of: Prostate Problems Musculoskeletal: No history of: Amputation - Surgical History Cardiac Surgeries: Sugical HX of: Cardiac Catheterization Thoracic Surgeries: Patient denies;: Organ Transplant Abdominal Surgeries: Patient denies: Abdominal Surgery Reproductive Surgeries: Patient denies;: Genitourinary Surgery - Social History Smoking Status: Former smoker Frequency of Alcohol Use: None Type of Drug Use: None Results - Labs CBC & BMP: 02/21/17 16:48 02/22/17 10:37 Lab Results: I have reviewed the past 24 hour labs - Diagnostic Findings Procedure: Chest x-ray: image reviewed by me (Cardiomegaly. Right lower lobe infiltrate more than left. Small effusions bilaterally. Chest x-ray most consistent with congestive heart failure. Cannot rule out superimposed pneumonia.) Quality Measures - Stroke Onset of Symptoms Date: 02/19/17 Specialty Discharge - Follow Up or Referrals
--- NOTE | 2017-02-22 17:30 | ECHO Report ---
COBY JIMENEZ Exam Date: 02/22/2017 14:22 Referring Physician: Technologist: chaparrita Wick ARDMS, RVT Age: 81 Ht (in): 67 Wt (lb): 171 Gender: M Exam Location: [facility] Echo Indications: Atrial fibrillation, Essential (primary) hypertension, Shortness of breath, CAD, Dyslipidemia, CHF NYHA class 3, Hypomagnesemia, Pneumonia BP: 123 / 74 HR: 95 Rhythm: Atrial fibrillation Technical Quality: good IMPRESSIONS Left ventricular ejection fraction is estimated at 30 %. The patient is in atrial fibrillation. Diastolic parameters are therefore incomplete. Mild-moderate mitral valve regurgitation. Moderate mitral annular calcification with no evidence of mitral stenosis. Tricuspid regurgitation velocities suggest a RVSP of 35 mmHg plus the right atrial pressure. Left pleural effusion MEASUREMENTS (Male / Female) Normal Values 2D ECHO LV Diastolic Diameter PLAX 4.9 cm 4.2 - 5.9 / 3.9 - 5.3 cm LV Systolic Diameter PLAX 4.7 cm LV Fractional Shortening PLAX 3.1 % IVS Diastolic Thickness 0.9 cm 0.6 - 1.0 / 0.6 - 0.9 cm LVPW Diastolic Thickness 1.0 cm 0.6 - 1.0 / 0.6 - 0.9 cm RV Internal Dim ED PLAX 3.2 cm Aortic Root Diameter 3.2 cm LA Systolic Diameter LX 3.8 cm 3.0 - 4.0 / 2.7 - 3.8 cm DOPPLER TR Peak Velocity 296.0 cm/s TR Peak Gradient 35.0 mmHg FINDINGS Left Ventricle Normal left ventricular cavity size. Normal left ventricular wall thickness. Left ventricular ejection fraction is estimated at 30 %. The patient is in atrial fibrillation. Diastolic parameters are therefore incomplete. There appears to be global hypokinesis Right Ventricle The right ventricle is normal in size and function. Right Atrium The right atrium is normal in size. Left Atrium The left atrium is normal in size. Mitral Valve Mitral valve sclerosis. Mild-moderate mitral valve regurgitation. Moderate mitral annular calcification with no evidence of mitral stenosis Aortic Valve Morphologically normal aortic valve without significant sclerosis or stenosis. There is no aortic regurgitation. Tricuspid Valve Thickened tricuspid valve. Mild tricuspid valve regurgitation. Tricuspid regurgitation velocities suggest a RVSP of 35 mmHg plus the right atrial pressure. Pulmonic Valve Morphologically normal pulmonic valve. Mild pulmonary valve regurgitation. Pericardium Normal pericardium without effusion. Aorta Normal ascending aorta dimension. Stephenson Priyanka (Electronically Signed) Final Date: 22 February 2017 17:29
[2017-02-22] MEDS ORDERED: OLANZapine 5 MG TABLET PO SCH (21:00)
[2017-02-22] MEDS ORDERED: PRIMIDONE 50 MG TABLET PO SCH (21:00)
[2017-02-22] MEDS: DONEPEZIL 5 MG TABLET PO SCH (21:26)
[2017-02-22] MEDS: ASPIRIN EC 81 MG TABLET PO SCH (21:27)
[2017-02-22] MEDS: MAGNESIUM OXIDE 400 MG TABLET PO SCH (21:29)
[2017-02-22] MEDS: NORTRIPTYLINE 25 MG CAPSULE PO SCH (21:30)
[2017-02-22] MEDS: MIRTAZAPINE 15 MG TABLET PO SCH (21:31)
[2017-02-22] MEDS: MONTELUKAST 10 MG TABLET PO SCH (21:45)
[2017-02-22] MEDS: DESITIN 4OZ/NYSTATIN 15 GRAM MIXTURE PASTE TOP SCH (21:45)
[2017-02-23] MEDS: cefTRIAXone 1,000 MG in SODIUM CHLORIDE 0.9% 100 ML IV SCH (02:32)
[2017-02-23] MEDS: CLINDAMYCIN INJ 300 MG in PREMIX 1 EACH IV SCH (05:11)
[2017-02-23 05:26] LABS: Basophils % 0.3 % (0.0-0.8); Eosinophils # 0.1 10*3/uL (0.0-0.87); Eosinophils % 1.5 % (0.00-10.9); Hematocrit 32.4 VOL% (42.0-52.0); Hemoglobin 10.3 GM/DL (14.0-18.0); Immature Granulocytes % 0.3 %; Immature Granulocytes Absolute 0.02 #; Lymphocytes # 0.9 10*3/uL (1.4-4.0); Lymphocytes % 13.7 % (21.2-54.2); Mean Corpuscular HGB Conc 31.8 GM/DL (32-36); Mean Corpuscular Hemoglobin 29 PG (27-34); Mean Corpuscular Volume 92.6 FL (87-102); Mean Platelet Volume 10.4 FL (9.6-12.0); Monocytes # 0.7 10*3/uL (0.11-0.8); Neutrophils # 4.9 10*3/uL (1.4-7.4); Neutrophils % 73.2 % (38.7-73.9); Platelet Count 147 T/CUMM (130-400); Red Cell Distribution Width 14.7 % (9.3-17.3); White Blood Count 6.7 T/CUMM (4-12)
[2017-02-23 05:53] LABS: Calcium 8.4 MG/DL (8.5-10.1); Magnesium 1.8 MG/DL (1.8-2.4); Osmolality,Calculated 295.7 MOS/KG (273-304); Potassium 3.9 MMOL/L (3.5-5.1)
--- NOTE | 2017-02-23 08:28 | Pulmonology Progress Note ---
Pulmonary - PN: Subj Interval history: This 81-year-old man is in with congestive heart failure. I was asked to see him yesterday because of possibility of aspiration pneumonia. He reportedly has Parkinson's disease but he does not remember being diagnosed as that. He does have some dementia. He is not on any Parkinson's medications. His chest x -ray showed bilateral interstitial infiltrates and pleural effusions. We did a noncontrast chest CT that showed a more significant bilateral pleural effusion picture with some fluid in the fissures, and with some compression of the lower lobes. Nothing really to suggest pneumonia. Discussed the case with Dr. Gonzáles this morning. Agree with discontinuing antibiotics. I think this is all congestive heart failure. The echocardiogram is indicated he has a decrease in his left ventricular ejection fraction compared to previous studies. I will sign off. Please call if needed further. Exam (Progress Note) - Constitutional Vitals: Period Temp Pulse Resp BP Sys/Spears Pulse Ox Last 24 Hr 97.9 F-99.6 F 43-99 18-24 96-123/51-74 92-100 Exam: Patient is alert but a little confused. Vital signs normal. Pupils react to light. Throat is clear. Neck supple no bruits. He does have some jugular venous distention. Chest reveals some crackles in the bases and dullness bilaterally. Heart irregular without murmur. Abdomen soft nontender no masses. Extremities 2+ edema calves nontender. Results - Labs CBC & BMP: 02/23/17 04:49 02/23/17 04:49 Lab Results: I have reviewed the past 24 hour labs - Diagnostic Findings Procedure: CT - chest: image reviewed by me (Bilateral pleural effusions with interstitial edema. Most consistent with heart failure.) Assessment and Plan (1) Atrial fibrillation with RVR Status: Acute Assessment and plan: Rate is better controlled. This certainly may be causing part of his congestive heart failure. 02/23/2017 rate is controlled now. The arrhythmia may have flipped him into congestive heart failure Current Visit: Yes (2) CHF (congestive heart failure), NYHA class III Status: Acute Assessment and plan: He has peripheral edema paroxysmal nocturnal dyspnea cardiomegaly and interstitial infiltrates pleural effusions. Has fairly normal ejection fraction. BNP is mildly elevated at 334. I do think he has congestive heart failure and it may well be done by the atrial arrhythmias. However cannot rule out pneumonia. I am not certain about his Parkinson's history but if he does indeed have that then aspiration is a risk. May be worthwhile to have neurology see him. The patient does not know of any history of Parkinson's. However he does have some dementia. I will get a noncontrast chest CT tomorrow to see if the pattern of this is more like pneumonia than heart failure. In the meantime agree with empiric antibiotics. 02/21/2017 scan is most consistent with heart failure. Agree with stopping antibiotics. Current Visit: Yes (3) Parkinsons disease Status: Chronic Assessment and plan: This is listed in his history. He is not on any Parkinson's medications. May have cerebellar tremor. Think a neurology consult would be helpful. If he does have Parkinson's and aspiration is certainly a risk Current Visit: Yes Specialty Discharge - Follow Up or Referrals
--- NOTE | 2017-02-23 08:37 | Cardiology Progress Note ---
<Susan Mosley E - Last Filed: 02/23/17 08:13> Assessment and Plan - Time spent with patient Time spent with patient: Greater than 30 minutes (1) Atrial fibrillation with RVR Status: Resolved Assessment and plan: SEE PLAN OF CARE LISTED BELOW Current Visit: Yes (2) Shortness of breath Status: Acute Assessment and plan: SEE PLAN OF CARE LISTED BELOW Current Visit: Yes (3) CHF (congestive heart failure), NYHA class III Status: Acute Assessment and plan: SEE PLAN OF CARE LISTED BELOW Current Visit: Yes Qualifiers: Congestive heart failure type: combined Congestive heart failure chronicity : acute Qualified Code(s): I50.41 - Acute combined systolic (congestive) and diastolic (congestive) heart failure (4) Hypertension Status: Chronic Assessment and plan: SEE PLAN OF CARE LISTED BELOW Current Visit: Yes (5) Dyslipidemia Status: Chronic Assessment and plan: SEE PLAN OF CARE LISTED BELOW Current Visit: Yes (6) Risk for falls Status: Chronic Assessment and plan: SEE PLAN OF CARE LISTED BELOW Current Visit: Yes (7) Parkinsons disease Status: Chronic Assessment and plan: SEE PLAN OF CARE LISTED BELOW Current Visit: Yes (8) Hypomagnesemia Status: Acute Assessment and plan: SEE PLAN OF CARE LISTED BELOW Current Visit: Yes (9) CAD (coronary artery disease) Status: Chronic Assessment and plan: SEE PLAN OF CARE LISTED BELOW Current Visit: Yes (10) Pneumonia Status: Acute Assessment and plan: SEE PLAN OF CARE LISTED BELOW. Suspected pneumonia, type to be determined. Current Visit: Yes Cardiology - PN: Subj Interval history: SENIOR NETWORK ENGINEER: DR. ZAVALETA SUMMARY: Mr. De Leon, 81WM, history of coronary artery disease (status post PCI to RCA Alexi 2004), hypertension, dyslipidemia, PAF, Parkinson's Disease. Last stress test December 21, 2015 with EF 62%. Admitted February 21, 2017 with atrial fibrillation with rapid ventricular response, acute CHF and possible pneumonia. FEBRUARY 23, 2017: Mr. De Leon wakes easily, appears to be less tachypneic today. Patient did refuse Hampton catheter but, according to his nurse, has been urinating frequently often in his adult brief. There has been no change in his weight overnight per daily weights. Overnight, IV Diltiazem has been discontinued as his heart rate came under better control, continued atrial fibrillation. He is now on oral CCB. He has had systolic blood pressures in the 80s-100s. I will decrease his dose of diltiazem this morning with hold parameters listed. Dr. Eduardo was consulted, saw patient and has ordered CT Chest this morning to further define etiology of shortness of breath. Given his parkinsonism, patient may be aspirating. Creatinine increased from 1.3 to 1.9 overnight. Results of renal ultrasound pending. Echo reveals: EF 30%, mild to moderate MR, RVSP 35mmHg + RAP. Will further discuss with Dr. Mathew and await additional recommendations. ASSESSMENT/PLAN: 1. ATRIAL FIBRILLATION WITH RVR - rate now controlled on oral Diltiazem. Patient has been maintained on aspirin only for stroke prevention due to high falls risk and advanced age. 2. ACUTE CHF - acute CHF secondary to systolic dysfunction (EF 30%) and diastolic dysfunction, NYHA CLASS III. Continue diuresing. 3. POSSIBLE PNEUMONIA - Appreciate Dr. Eduardo assistance. Scheduled for non- infused CT chest this morning to further define. Patient has been started on IV antibiotics. No elevation in white blood cell count nor fever but will continue to treat accordingly. 4. HYPERTENSION - has had lower blood pressures during the night. Adjusting downward Diltiazem with "hold" parameters. 5. DYSLIPIDEMIA - continue lipid-lowering agent. Result fasting lipid profile pending. 6. KNOWN CAD - 2004 PCI to RCA in [place], [place]. Troponins negative. No complaints of chest pain. 7. PARKINSON'S DISEASE - continue current plan of care. 8. HIGH FALLS RISK - Instituted falls prevention protocol 9. HYPOMAGNESEMIA - replace per protocol. Monitor labs daily. 10. CARDIOMYOPATHY - Undetermined etiology at this time as this is new diagnosis. Stress test December 2015 revealed an EF of 62%. Poor candidate for invasive workup at this time as the patient remains orthopneic and in poor health in general. Exam (Progress Note) - Constitutional Vitals: Period Temp Pulse Resp BP Sys/Spears Pulse Ox Last 24 Hr 97.9 F-99.6 F 43-99 20-24 96-123/51-74 92-100 Exam: General: [Asleep, wakes easily, head of the bed 30. Pleasant and cooperative] HEENT: [PERRL, normocephalic, atraumatic. Mucous membranes moist. No jaundice noted. Conjunctiva moist and clear, sclerae anicteric] Neck: JVD improved overnight, no thyromegaly or lymphadenopathy noted. No carotid bruit appreciated Cardiac: [Irregularly irregular rhythm, controlled rate. ] [No obvious murmur , rub or gallop.] Lungs: [Inspiratory crackles noted posteriorly in the bases, rhonchi noted throughout. Continues to require oxygen via nasal cannula. Abdomen: Soft, bowel sounds normoactive. Nontender and nondistended. No abdominal bruit or thrill noted. No masses noted. Musculoskeletal: No fluid collection. Decreased range of motion is noted. Extremities: No clubbing, cyanosis noted. [ No edema noted.] Upper extremity pulses 2+. Lower extremity pulses 2+. Capillary refill less than 3 seconds. Skin: No unusual lesions or rashes. No skin breakdown appreciated. Neuro: Awake, alert. Moves all extremities well without hemiparesis or paralysis. Parkinsonian tremor present. Result/EKG - Labs CBC & BMP: 02/23/17 04:49 02/23/17 04:49 Lab Results: I have reviewed the past 24 hour labs Labs: Laboratory Results - last 24 hr 02/22/17 02/22/17 02/23/17 10:37 10:37 04:49 WBC 6.7 D RBC 3.50 L Hgb 10.3 L Hct 32.4 L MCV 92.6 MCH 29 MCHC 31.8 L RDW 14.7 Plt Count 147 MPV 10.4 Neut % (Auto) 73.2 Lymph % (Auto) 13.7 L Barton % (Auto) 11.0 Eos % (Auto) 1.5 Baso % (Auto) 0.3 Neut # (Auto) 4.9 Lymph # (Auto) 0.9 L Barton # (Auto) 0.7 Eos # (Auto) 0.1 Baso # (Auto) 0.0 Immature Gran % 0.3 Nucleated RBC % 0.0 Immature Gran # 0.02 Nucleated RBCs # 0.00 Sodium 146 H Potassium 4.3 Chloride 114 H Carbon Dioxide 25 Anion Gap 11.3 BUN 25 H Creatinine 1.30 GFR Calculation 56 BUN/Creatinine Ratio 19.00 Glucose 113 H Calculated Osmolality 294.6 Calcium 8.5 Magnesium 1.8 Total Creatine Kinase 37 L D CK-MB (CK-2) 2.2 Troponin I 0.027 02/23/17 04:49 WBC RBC Hgb Hct MCV MCH MCHC RDW Plt Count MPV Neut % (Auto) Lymph % (Auto) Barton % (Auto) Eos % (Auto) Baso % (Auto) Neut # (Auto) Lymph # (Auto) Barton # (Auto) Eos # (Auto) Baso # (Auto) Immature Gran % Nucleated RBC % Immature Gran # Nucleated RBCs # Sodium 145 Potassium 3.9 Chloride 111 H Carbon Dioxide 24 Anion Gap 13.9 BUN 33 H Creatinine 1.90 H GFR Calculation 36 BUN/Creatinine Ratio 17.00 Glucose 116 H Calculated Osmolality 295.7 Calcium 8.4 L Magnesium 1.8 Total Creatine Kinase CK-MB (CK-2) Troponin I - Diagnostic Findings Procedure: CT - chest: pending (Results pending), Ultrasound: pending (Pending results renal US) - EKG EKG results: interpreted by me EKG shows: atrial fibrillation Quality Measures - Stroke Onset of Symptoms Date: 02/19/17 Specialty Discharge - Follow Up or Referrals <Seema Mathew - Last Filed: 02/23/17 13:50> Assessment and Plan (1) SVT (supraventricular tachycardia) Status: Acute Current Visit: Yes (2) Pulmonary edema Status: Acute Current Visit: Yes (3) High risk medication use Status: Acute Current Visit: Yes (4) Shortness of breath Status: Acute Current Visit: Yes (5) Hypertension Status: Chronic Current Visit: Yes (6) Dyslipidemia Status: Chronic Current Visit: Yes (7) Risk for falls Status: Chronic Current Visit: Yes (8) Parkinsons disease Status: Chronic Current Visit: Yes (9) CAD (coronary artery disease) Status: Chronic Current Visit: Yes (10) Paroxysmal atrial fibrillation Status: Chronic Current Visit: Yes (11) Acute on chronic renal insufficiency Status: Acute Assessment and plan: Creatinine has worsened significantly. I will stop his sotalol and add a standard beta-fareed. Coreg would be the agent of choice. Renal ultrasound was performed and shows no evidence of obstruction Current Visit: Yes Cardiology - PN: Subj Interval history: Mr. De Leon had an echocardiogram yesterday that showed a significant decline in his ejection fraction. With increased loog he actually has not diuresed very well. He also has a pleural effusion. Does not appear as though he has pneumonia I discontinued his antibiotics and discussed with Dr. Eduardo. We appreciate the help of Dr. Eduardo and . The patient continues to have significant amount of wheezing that he is less tachypneic. His creatinine has increased significantly. He is on sotalol and diltiazem would like to get him off the diltiazem as soon as possible because of his negative inotropic effects. I will add a low-dose milrinone and see if this will improve his forward output. I do not think the patient is a very good candidate for left heart catheterization this time especially in face of his significant change in renal insufficiency. We will try to diurese him. Overall his prognosis does not seem good. Hopefully he will be better to ambulate with his Parkinson's treatment Exam (Progress Note) - Constitutional Vitals: Period Temp Pulse Resp BP Sys/Spears Pulse Ox Last 24 Hr 97.4 F-99.6 F 43-99 18-24 96-114/51-72 92-100 Exam: Physical exam as above. Again he continues to have wheezing and rales. Not much in the way of lower extremity edema. Result/EKG - Labs CBC & BMP: 02/23/17 04:49 02/23/17 04:49 Labs: Laboratory Results - last 24 hr 02/22/17 02/23/17 02/23/17 10:37 04:47 04:49 WBC 6.7 D RBC 3.50 L Hgb 10.3 L Hct 32.4 L MCV 92.6 MCH 29 MCHC 31.8 L RDW 14.7 Plt Count 147 MPV 10.4 Neut % (Auto) 73.2 Lymph % (Auto) 13.7 L Barton % (Auto) 11.0 Eos % (Auto) 1.5 Baso % (Auto) 0.3 Neut # (Auto) 4.9 Lymph # (Auto) 0.9 L Barton # (Auto) 0.7 Eos # (Auto) 0.1 Baso # (Auto) 0.0 Immature Gran % 0.3 Nucleated RBC % 0.0 Immature Gran # 0.02 Nucleated RBCs # 0.00 Sodium 146 H Potassium 4.3 Chloride 114 H Carbon Dioxide 25 Anion Gap 11.3 BUN 25 H Creatinine 1.30 GFR Calculation 56 BUN/Creatinine Ratio 19.00 Glucose 113 H Calculated Osmolality 294.6 Calcium 8.5 Magnesium 1.8 Triglycerides 73 Cholesterol 141 LDL Cholesterol 98.0 VLDL Cholesterol 14.6 HDL Cholesterol 34 L Heart Disease Risk Ratio 4.15 06/22/17 04:49 WBC RBC Hgb Hct MCV MCH MCHC RDW Plt Count MPV Neut % (Auto) Lymph % (Auto) Barton % (Auto) Eos % (Auto) Baso % (Auto) Neut # (Auto) Lymph # (Auto) Barton # (Auto) Eos # (Auto) Baso # (Auto) Immature Gran % Nucleated RBC % Immature Gran # Nucleated RBCs # Sodium 145 Potassium 3.9 Chloride 111 H Carbon Dioxide 24 Anion Gap 13.9 BUN 33 H Creatinine 1.90 H GFR Calculation 36 BUN/Creatinine Ratio 17.00 Glucose 116 H Calculated Osmolality 295.7 Calcium 8.4 L Magnesium 1.8 Triglycerides Cholesterol LDL Cholesterol VLDL Cholesterol HDL Cholesterol Heart Disease Risk Ratio
[2017-02-23 08:51] LABS: Risk Ratio 4.15; VLDL CHOLESTEROL 14.6 MG/DL
--- NOTE | 2017-02-23 09:10 | Ultrasound Report ---
Exam: US renal Bilateral Date: 02/23/2017 6:21 AM Comparison: None Indication: Acute renal insufficiency Technique:[Multiple transabdominal real-time scans were obtained kidneys. Ultrasound images were captured and stored. Color-flow scans obtained.] Findings: Right kidney measures 101 x 49 x 46 mm. Left kidney measures 97 x 56 x 55 mm. Color-flow documented in the kidneys with no masses or hydronephrosis. Impression: Kidneys are symmetric in size with no masses or hydronephrosis. PROCEDURE INTERPRETED AT [facility] DEPARTMENT OF RADIOLOGY Final Report Signed by: Dr. Anya Prakash
--- NOTE | 2017-02-23 09:24 | CT Report ---
History: CHF, pneumonia Date: 02/23/2017 Study: CT chest without IV contrast Comparison exam: No previous Spiral CT sections were obtained through the lungs without contrast. The CT exam was performed using one or more of the following dose reduction techniques: Automated exposure control, adjustment of the mA and/or kV according to patient size, or use of iterative reconstruction technique. There is a large amount of layering pleural effusion in the dependent portion of either hemithorax. There is moderate atelectatic change in the dependent portion of either lower lung. There is patchy and hazy edema/infiltrate in the perihilar regions. There is platelike atelectasis in the right middle lobe and lingula. There is no mediastinal lymphadenopathy by short axis diameter criteria. There is moderate coronary artery calcification involving the left anterior descending and right coronary arteries. The gallbladder is surgically absent. There is no acute abnormality of the partially visualized upper abdomen. There is mild thoracic spondylosis. Impression: Large amount of pleural effusion bilaterally. Bilateral parenchymal disease which may represent a combination of pulmonary edema and passive atelectasis. Coronary artery calcification PROCEDURE INTERPRETED AT [facility] DEPARTMENT OF RADIOLOGY Final Report Signed by: Dr. Екатерина Jerry
[2017-02-23] MEDS: SOTALOL 80 MG TABLET PO SCH (09:30)
[2017-02-23] MEDS: MULTIVITAMIN (OCUVITE) TABLET PO SCH (09:31)
[2017-02-23] MEDS: PANTOPRAZOLE 40 MG TABLET PO SCH (09:31)
[2017-02-23] MEDS: TAMSULOSIN 0.4 MG CAPSULE PO SCH (09:32)
[2017-02-23] MEDS: FINASTERIDE 5 MG TABLET PO SCH (09:32)
[2017-02-23] MEDS: ASCORBIC ACID 500 MG TABLET PO SCH ×2 (09:33→21:55)
--- NOTE | 2017-02-23 09:33 | Neurology Consult Note ---
History of Present Illness History of present illness: 9 years old right-handed white gentleman who is a assisted-living facility resident with past medical history significant for CHF, hypertension, dyslipidemia, CAD admitted to the hospital with worsening shortness of breath palpitation, heart racing. He was found to be in atrial fibrillation with rapid ventricular response acute CHF and possible pneumonia. Patient is not a very good historian. No family is available at this time. Patient has gone down significantly to the point that he has been having some difficulty in managing himself at home. He reported that he can get up and walk but he uses walker at the [facility]. He admits that he can feed dress and bathe himself but I doubt it, the way he looked. No clear history of urinary incontinence he does have significant memory problems. He does have short shuffling gait as well. He requires significant help to get out of the bed. He has been falling a lot. Home Medications Medication Instructions Recorded Confirmed Type Aspirin [Ecotrin] 81 mg PO BEDTIME 01/29/15 02/21/17 History Finasteride 5 tablet PO DAILY 01/29/15 02/21/17 History Mirtazapine [Remeron] 30 mg PO BEDTIME 01/29/15 02/21/17 History Montelukast Tab [Singulair Tab] 10 mg PO BEDTIME 01/29/15 02/21/17 History Multivit-Min/FA/Lycopen/Lutein 1 each PO DAILY 01/29/15 02/21/17 History [Centrum Silver Tablet] Nortriptyline [Pamelor] 75 mg PO BEDTIME 01/29/15 02/21/17 History Pantoprazole Tab [Protonix Tab] 40 mg PO DAILY 01/29/15 02/21/17 History Primidone [Mysoline] 50 mg PO BEDTIME 01/29/15 02/21/17 History Sotalol [Betapace] 80 mg PO BID 01/29/15 02/21/17 History Tamsulosin [Flomax] 0.4 mg PO DAILY 01/29/15 02/21/17 History Topiramate [Topamax] 50 mg PO BID 01/29/15 02/21/17 History Acetaminophen/Caffeine [Excedrin 1 each PO DAILY PRN 02/21/17 02/21/17 History Tension Headache Cplt] Donepezil [Aricept] 5 mg PO BEDTIME 02/21/17 02/21/17 History Meloxicam [Mobic] 7.5 mg PO BID 02/21/17 02/21/17 History Multivit-Min/FA/Lutein/Zeaxant 1 each PO DAILY 02/21/17 02/21/17 History [Icaps Mv Tablet] Naproxen Sodium [Aleve] 440 mg PO BID 02/21/17 02/21/17 History Nitroglycerin Sl Tab [Nitrostat] 0.4 mg SL Q5M PRN 02/21/17 02/21/17 History OLANZapine [Olanzapine] 10 mg PO BEDTIME 02/21/17 02/21/17 History Allergies Allergy/AdvReac Type Severity Reaction Status Date / Time codeine Allergy Unknown/Unable Verified 02/21/17 16:40 to obtain 12 point system: reviewed and no additional remarkable complaints except as stated Medical,Surgical,& Family Hx - Medical History Cardio: History of: Cardiac Dysrhythmia, CAD, Hypertension Neurology: History of: Parkinson's Disease Respiratory: History of: COPD Genitourinary: History of: Prostate Problems Musculoskeletal: No history of: Amputation - Surgical History Cardiac Surgeries: Sugical HX of: Cardiac Catheterization Thoracic Surgeries: Patient denies;: Organ Transplant Abdominal Surgeries: Patient denies: Abdominal Surgery Reproductive Surgeries: Patient denies;: Genitourinary Surgery - Social History Smoking Status: Former smoker Frequency of Alcohol Use: None Type of Drug Use: None Exam - Constitutional Vitals: Period Temp Pulse Resp BP Sys/Spears Pulse Ox Last 24 Hr 97.9 F-99.6 F 43-99 18-24 96-123/51-74 92-100 Exam: GENERAL: Patient is in no acute distress. NECK: Neck is supple. There is no JVD. No carotid bruits present. No thyroid masses. CVS: First and second heart sounds are normal. There is no S3 present. Regular rate and rhythm. RESPIRATORY: Lungs are clear to auscultation without any rales or rhonchi. ABDOMEN: Soft and non-tender. Bowel sounds are present. There is no hepatosplenomegaly. EXT: There is no palpable edema. Peripheral pulses are present. Skin: No rashes Central Nervous system: General: Alert, awake Speech: Fluent with reduced volume output Comprehension: Fair Facial expressions: Masklike Cranial Nerves: Pupils are equally reactive to light. Extraocular movements are intact. No facial asymmetry is seen. Motor: Bilateral bradykinesia and mild cogwheel rigidity Strength difficult to assess but is symmetrical Sensory: Unreliable Reflexes: 1+ and symmetrical Cerebellar function: Normal finger to nose and heel to casey testing. Toes: Equivocal Gait: Slightly broad-based short shuffling gait with stooped posture. Could not take more than couple of steps. Results - Labs CBC & BMP: 02/23/17 04:49 02/23/17 04:49 Assessment and Plan (1) Parkinsons disease Status: Chronic Assessment and plan: Other differential would include normal pressure hydrocephaly versus multi- infarct state. We will perform MRI of the brain Add Sinemet Consult PT and OT Consult TMR Current Visit: Yes Specialty Discharge - Follow Up or Referrals
[2017-02-23] MEDS: DILTIAZEM 60 MG TABLET PO SCH ×3 (09:34→22:01)
[2017-02-23] MEDS: MAGNESIUM OXIDE 400 MG TABLET PO SCH ×2 (09:34→21:56)
[2017-02-23] MEDS: MULTIVITAMIN (CENTRUM) TABLET PO SCH (09:34)
[2017-02-23] MEDS: FUROSEMIDE 40 MG/4 ML VIAL IV SCH ×2 (09:36→17:24)
[2017-02-23] MEDS: metOLazone 5 MG TABLET PO SCH ×2 (09:39)
--- NOTE | 2017-02-23 10:48 | Physician Query Form ---
CLICK EDIT DOCUMENT TO SELECT QUERY ANSWER --> OK --> SIGN Kary Slater RN Clinical Hay Sorter W) [phone] (f) [phone] [email or web address] PROVIDERS: Make your selection(s) from the choices in EACH section by typing an "x" and enter comments in the comment section. Please use your independent medical judgment in providing your response. This request does not imply that any particular answer is desired or expected. CLINICAL INDICATORS: (Providers should not edit this section) Pt. admitted with CHF and diuresed with IV Lasix. Creatinine on admission of 1.30 and increased to 1.90 with a GFR of 36. Clarify which of the following most accurately represents the patient's renal status: ( ) Acute kidney injury (non-traumatic) (x ) Acute renal failure ( ) Acute renal failure with underlying Chronic Kidney Disease (CKD) - please provide stage below ( ) CKD - please provide stage below ( ) Other, please specify: ( ) Clinically unable to determine Chronic Kidney Disease Stages Source: National Kidney Disease Foundation ( ) Stage I (eGFR > or = 90) ( ) Stage II (eGFR 60 - 89) (x ) Stage III (eGFR 30 - 59) ( ) Stage IV (eGFR 15 - 29) ( ) Stage V (eGFR < 15 or dialysis) COMMENTS: PLEASE ALSO DOCUMENT RESPONSE IN PROGRESS NOTES AND/OR DISCHARGE SUMMARY Use of terms such as suspected, likely, or probable (associated with a specific diagnosis that is being evaluated, monitored, or treated as if it exists) are acceptable and can be restated in the discharge summary if not ruled out. MTDD
[2017-02-23] MEDS: TOPIRAMATE 25 MG TABLET PO SCH (10:56)
[2017-02-23] MEDS: DESITIN 4OZ/NYSTATIN 15 GRAM MIXTURE PASTE TOP SCH ×2 (11:11→20:45)
[2017-02-23] MEDS ORDERED: MILRINONE 20 MG/100 ML PREMIX IV SCH (15:30)
[2017-02-23] MEDS: CARBIDOPA/LEVODOPA 25-100 MG TABLET PO SCH ×2 (16:11→21:56)
[2017-02-23] MEDS ORDERED: metOLazone 5 MG TABLET PO SCH (20:30)
[2017-02-23] MEDS: DONEPEZIL 5 MG TABLET PO SCH (21:54)
[2017-02-23] MEDS: OLANZapine 5 MG TABLET PO SCH (21:54)
[2017-02-23] MEDS: ASPIRIN EC 81 MG TABLET PO SCH (21:55)
[2017-02-23] MEDS: MONTELUKAST 10 MG TABLET PO SCH (21:55)
[2017-02-23] MEDS: CARVEDILOL 12.5 MG TABLET PO SCH (21:55)
[2017-02-23] MEDS: APIXABAN 2.5 MG TABLET PO SCH (21:55)
[2017-02-23] MEDS: MIRTAZAPINE 15 MG TABLET PO SCH (21:56)
[2017-02-23] MEDS: NORTRIPTYLINE 25 MG CAPSULE PO SCH (21:56)
[2017-02-24 04:08] LABS: Basophils % 0.3 % (0.0-0.8); Eosinophils # 0.2 10*3/uL (0.0-0.87); Eosinophils % 2.5 % (0.00-10.9); Hematocrit 32.9 VOL% (42.0-52.0); Hemoglobin 10.8 GM/DL (14.0-18.0); Immature Granulocytes % 0.4 %; Immature Granulocytes Absolute 0.03 #; Lymphocytes # 1.2 10*3/uL (1.4-4.0); Lymphocytes % 15.8 % (21.2-54.2); Mean Corpuscular HGB Conc 32.8 GM/DL (32-36); Mean Corpuscular Hemoglobin 30 PG (27-34); Mean Corpuscular Volume 91.1 FL (87-102); Mean Platelet Volume 10.3 FL (9.6-12.0); Monocytes # 0.7 10*3/uL (0.11-0.8); Monocytes % 10.2 % (1.7-12.7); Neutrophils # 5.2 10*3/uL (1.4-7.4); Neutrophils % 70.8 % (38.7-73.9); Platelet Count 140 T/CUMM (130-400); Red Blood Count 3.61 MC/CUMM (3.8-5.5); Red Cell Distribution Width 14.4 % (9.3-17.3); White Blood Count 7.3 T/CUMM (4-12)
[2017-02-24 04:34] LABS: Calcium 8.5 MG/DL (8.5-10.1); Magnesium 2.4 MG/DL (1.8-2.4); Potassium 3.2 MMOL/L (3.5-5.1)
--- NOTE | 2017-02-24 08:15 | Cardiology Progress Note ---
Assessment and Plan - Time spent with patient Time spent with patient: Less than 30 minutes (1) Atrial fibrillation with RVR Status: Resolved Assessment and plan: See plan of care listed below. Current Visit: Yes (2) Shortness of breath Status: Acute Assessment and plan: See plan of care listed below. Current Visit: Yes (3) CHF (congestive heart failure), NYHA class III Status: Acute Assessment and plan: See plan of care listed below. Current Visit: Yes Qualifiers: Congestive heart failure type: combined Congestive heart failure chronicity : acute Qualified Code(s): I50.41 - Acute combined systolic (congestive) and diastolic (congestive) heart failure (4) Hypertension Status: Chronic Assessment and plan: See plan of care listed below. Current Visit: Yes (5) Dyslipidemia Status: Chronic Assessment and plan: See plan of care listed below. Current Visit: Yes (6) Risk for falls Status: Chronic Assessment and plan: See plan of care listed below. Current Visit: Yes (7) Parkinsons disease Status: Chronic Assessment and plan: See plan of care listed below. Current Visit: Yes (8) Hypomagnesemia Status: Acute Assessment and plan: See plan of care listed below. Current Visit: Yes (9) CAD (coronary artery disease) Status: Chronic Assessment and plan: See plan of care listed below. Current Visit: Yes (10) Cardiomyopathy Status: Acute Assessment and plan: See plan of care listed below. Current Visit: Yes Cardiology - PN: Subj Interval history: IT ARCHITECT: DR. ZAVALETA SUMMARY: Mr. De Leon, 81WM, history of coronary artery disease (status post PCI to RCA [place] 2004), hypertension, dyslipidemia, PAF, Parkinson's Disease. Last stress test December 21, 2015 with EF 62%. Admitted February 21, 2017 with atrial fibrillation with rapid ventricular response, acute CHF and possible pneumonia. FEBRUARY 24, 2017: Mr. De Leon wakes easily. Patient did refuse [place] catheter but, according to his nurse, has been urinating frequently in his adult brief. There has been a slight change in his weight from yesterday per daily weights. IV Diltiazem has been discontinued as his heart rate came under better control, continued atrial fibrillation. He is now on oral CCB as well as beta-fareed. In attempts to wean him from the diltiazem due to the negative inotropic effects, he was started on low-dose milrinone to see if this will improve his forward output. Diltiazem remains at 60 mg p.o. 3 times daily, will continue to adjust downward. Dr. Eduardo was consulted, saw patient and has ordered CT Chest which revealed large amount of pleural effusion bilaterally. Given his parkinsonism, patient may be aspirating. Neurology has been consulted to better assist. Creatinine increased to 2.1. Renal ultrasound shows no evidence of obstruction. Echo reveals: EF 30%, mild to moderate MR, RVSP 35mmHg + RAP. Will further discuss with Dr. Mathew and await additional recommendations. ASSESSMENT/PLAN: 1. ATRIAL FIBRILLATION WITH RVR- rate now controlled on oral Diltiazem. Patient has been maintained on aspirin only for stroke prevention due to high falls risk and advanced age. Due to worsening creatinine, sotalol was stopped and he was started on a standard beta fareed. 2. ACUTE CHF - acute CHF secondary to systolic dysfunction (EF 30%) and diastolic dysfunction, NYHA CLASS III. Continue diuresing. 3. POSSIBLE PNEUMONIA - Appreciate Dr. Eduardo assistance. CT chest revealed large amount of pleural effusion bilaterally. We will continue diuresis. Patient has been started on IV antibiotics. No elevation in white blood cell count nor fever but will continue to treat accordingly. 4. HYPERTENSION - has had lower blood pressures during the night. Adjusting downward Diltiazem with "hold" parameters. 5. DYSLIPIDEMIA - continue lipid-lowering agent. Triglycerides 73, cholesterol 141, LDL 98, HDL 34. 6. KNOWN CAD - 2004 PCI to RCA in [place], [place]. Troponins negative. No complaints of chest pain. 7. PARKINSON'S DISEASE - continue current plan of care. Appreciate Dr. Morgan's assistance. He is planned for MRI of the brain. His primidone and Topamax have been discontinued and he has been changed to Zyprexa. PT, OT, and pulmonary rehab has been consulted. He has also been started on Sinemet. 8. HIGH FALLS RISK - Instituted falls prevention protocol 9. HYPOMAGNESEMIA - replace per protocol. Monitor labs daily. 10. CARDIOMYOPATHY - Undetermined etiology at this time as this is new diagnosis. Stress test December 2015 revealed an EF of 62%. Poor candidate for invasive workup at this time as the patient remains orthopneic and in poor health in general. Exam (Progress Note) - Constitutional Vitals: Period Temp Pulse Resp BP Sys/Spears Pulse Ox Last 24 Hr 96.2 F-98.9 F 63-86 16-22 101-121/49-72 93-97 Exam: General: Asleep, wakes easily, head of the bed 30. Pleasant and cooperative HEENT: PERRL, normocephalic, atraumatic. Mucous membranes moist. No jaundice noted. Conjunctiva moist and clear, sclerae anicteric Neck: no thyromegaly or lymphadenopathy noted. No carotid bruit appreciated Cardiac: Irregularly irregular rhythm, controlled rate. No obvious murmur, rub or gallop. Lungs: Crackles noted posteriorly in the bases, scattered rhonchi noted throughout. Continues to require oxygen via nasal cannula. Abdomen: Soft, bowel sounds normoactive. Nontender and nondistended. No abdominal bruit or thrill noted. No masses noted. Musculoskeletal: No fluid collection. Decreased range of motion is noted. Extremities: No clubbing, cyanosis noted. 1+ pitting edema noted to BLE. Upper extremity pulses 2+. Lower extremity pulses 2+. Capillary refill less than 3 seconds. Skin: No unusual lesions or rashes. No skin breakdown appreciated. Neuro: Awake, alert. Moves all extremities well without hemiparesis or paralysis. Parkinsonian tremor present. Result/EKG - Labs CBC & BMP: 02/24/17 03:39 02/24/17 03:39 Lab Results: I have reviewed the past 24 hour labs Labs: Laboratory Results - last 24 hr 02/23/17 02/24/17 02/24/17 04:47 03:39 03:39 WBC 7.3 RBC 3.61 L Hgb 10.8 L Hct 32.9 L MCV 91.1 MCH 30 MCHC 32.8 RDW 14.4 Plt Count 140 MPV 10.3 Neut % (Auto) 70.8 Lymph % (Auto) 15.8 L [place] % (Auto) 10.2 Eos % (Auto) 2.5 Baso % (Auto) 0.3 Neut # (Auto) 5.2 Lymph # (Auto) 1.2 L [place] # (Auto) 0.7 Eos # (Auto) 0.2 Baso # (Auto) 0.0 Immature Gran % 0.4 Nucleated RBC % 0.0 Immature Gran # 0.03 Nucleated RBCs # 0.00 Sodium 143 Potassium 3.2 L Chloride 106 Carbon Dioxide 26 Anion Gap 14.2 BUN 46 H D Creatinine 2.10 H GFR Calculation 32 BUN/Creatinine Ratio 21.00 H Glucose 109 H Calculated Osmolality 297.0 Calcium 8.5 Magnesium 2.4 Triglycerides 73 Cholesterol 141 LDL Cholesterol 98.0 VLDL Cholesterol 14.6 HDL Cholesterol 34 L Heart Disease Risk Ratio 4.15 - EKG EKG results: interpreted by me EKG shows: atrial fibrillation Quality Measures - Stroke Onset of Symptoms Date: 02/19/17 Specialty Discharge - Follow Up or Referrals
[2017-02-24] MEDS: APIXABAN 2.5 MG TABLET PO SCH ×2 (09:15→21:08)
[2017-02-24] MEDS: DESITIN 4OZ/NYSTATIN 15 GRAM MIXTURE PASTE TOP SCH ×2 (09:15→22:46)
[2017-02-24] MEDS: CARVEDILOL 12.5 MG TABLET PO SCH ×2 (09:15→20:56)
[2017-02-24] MEDS: DILTIAZEM 30 MG TABLET PO SCH ×3 (09:15→20:55)
[2017-02-24] MEDS: CARBIDOPA/LEVODOPA 25-100 MG TABLET PO SCH ×3 (09:15→20:57)
[2017-02-24] MEDS: FUROSEMIDE 40 MG/4 ML VIAL IV SCH ×2 (09:15→16:34)
[2017-02-24] MEDS: MAGNESIUM OXIDE 400 MG TABLET PO SCH ×2 (09:15→21:08)
[2017-02-24] MEDS: PANTOPRAZOLE 40 MG TABLET PO SCH (09:15)
[2017-02-24] MEDS: ASCORBIC ACID 500 MG TABLET PO SCH ×2 (09:15→20:57)
[2017-02-24] MEDS: TAMSULOSIN 0.4 MG CAPSULE PO SCH (09:15)
[2017-02-24] MEDS: FINASTERIDE 5 MG TABLET PO SCH (09:15)
[2017-02-24] MEDS: MULTIVITAMIN (OCUVITE) TABLET PO SCH (09:15)
--- NOTE | 2017-02-24 12:40 | Magnetic Resonance Report ---
MRI brain without contrast Indication: Ataxia, frequent falls Comparison: None available Technique: Axial sagittal and coronal imaging of the brain is performed without contrast. T1, T2, FLAIR and diffusion weighted sequences are performed. Findings: No evidence of restricted diffusion seen. No evidence of intracranial hemorrhage, mass, mass effect or midline shift is seen. There is moderate to severe diffuse cerebral and cerebellar atrophy. There are areas of white matter T2 signal hyperintensity in both cerebral hemispheres, periventricular and subcortical location likely related to chronic microvascular changes.. Remaining brain parenchyma has normal signal and differentiation. The ventricles and cisterns are appropriate in caliber. Posterior fossa, mid brain and pituitary gland appear within normal limits. No evidence of cranial or skull base abnormality seen. Impression: No evidence of acute process or acute infarct demonstrated. PROCEDURE INTERPRETED AT [facility] DEPARTMENT OF RADIOLOGY Final Report Signed by: Dr. Eugenio Rodriguez
--- NOTE | 2017-02-24 14:21 | Neurology Progress Note ---
Neurology - PN : Subjective Interval history: Patient seems to be doing better. He was able to get up and walk with mod assist. Has more expressions on his face. MRI of the brain is unremarkable for any significant pathology. Exam (Progress Note) - Constitutional Vitals: Period Temp Pulse Resp BP Sys/Spears Pulse Ox Last 24 Hr 96.2 F-98.9 F 63-86 16-22 101-126/49-66 93-99 Exam: GENERAL: Patient is in no acute distress. NECK: Neck is supple. There is no JVD. No carotid bruits present. No thyroid masses. CVS: First and second heart sounds are normal. There is no S3 present. Regular rate and rhythm. RESPIRATORY: Lungs are clear to auscultation without any rales or rhonchi. ABDOMEN: Soft and non-tender. Bowel sounds are present. There is no hepatosplenomegaly. EXT: There is no palpable edema. Peripheral pulses are present. Skin: No rashes Central Nervous system: General: Alert, awake Speech: Fluent with reduced volume output Comprehension: Fair Facial expressions: Masklike Cranial Nerves: Pupils are equally reactive to light. Extraocular movements are intact. No facial asymmetry is seen. Motor: Bilateral bradykinesia and mild cogwheel rigidity Strength difficult to assess but is symmetrical Sensory: Unreliable Reflexes: 1+ and symmetrical Cerebellar function: Normal finger to nose and heel to casey testing. Toes: Equivocal Gait: Slightly broad-based short shuffling gait with stooped posture. Could not take more than couple of steps. Results - Labs CBC & BMP: 02/24/17 03:39 02/24/17 03:39 Assessment and Plan (1) Parkinsons disease Status: Chronic Assessment and plan: Continue Sinemet We will adjust medication periodically For TMR placement hopefully on Monday Current Visit: Yes Quality Measures - Stroke Onset of Symptoms Date: 02/19/17 Specialty Discharge - Follow Up or Referrals
[2017-02-24] MEDS: NORTRIPTYLINE 25 MG CAPSULE PO SCH (20:54)
[2017-02-24] MEDS: MIRTAZAPINE 15 MG TABLET PO SCH (20:55)
[2017-02-24] MEDS: DONEPEZIL 5 MG TABLET PO SCH (20:55)
[2017-02-24] MEDS: OLANZapine 5 MG TABLET PO SCH (20:57)
[2017-02-24] MEDS: MONTELUKAST 10 MG TABLET PO SCH (20:57)
[2017-02-24] MEDS: ASPIRIN EC 81 MG TABLET PO SCH (20:57)
[2017-02-25 04:57] LABS: Basophils % 0.5 % (0.0-0.8); Eosinophils # 0.2 10*3/uL (0.0-0.87); Eosinophils % 3.4 % (0.00-10.9); Hematocrit 32.9 VOL% (42.0-52.0); Hemoglobin 10.8 GM/DL (14.0-18.0); Immature Granulocytes % 0.3 %; Immature Granulocytes Absolute 0.02 #; Lymphocytes # 1.1 10*3/uL (1.4-4.0); Lymphocytes % 17.3 % (21.2-54.2); Mean Corpuscular HGB Conc 32.8 GM/DL (32-36); Mean Corpuscular Hemoglobin 29 PG (27-34); Mean Corpuscular Volume 89.6 FL (87-102); Mean Platelet Volume 10.5 FL (9.6-12.0); Monocytes # 0.8 10*3/uL (0.11-0.8); Monocytes % 11.9 % (1.7-12.7); Neutrophils # 4.3 10*3/uL (1.4-7.4); Neutrophils % 66.6 % (38.7-73.9); Platelet Count 154 T/CUMM (130-400); Red Blood Count 3.67 MC/CUMM (3.8-5.5); Red Cell Distribution Width 14.5 % (9.3-17.3); White Blood Count 6.4 T/CUMM (4-12)
[2017-02-25 05:21] LABS: Calcium 8.4 MG/DL (8.5-10.1); Magnesium 2.2 MG/DL (1.8-2.4); Osmolality,Calculated 292.3 MOS/KG (273-304)
[2017-02-25] MEDS ORDERED: POTASSIUM CHLORIDE 20 MEQ TABLET PO ONE (07:00)
--- NOTE | 2017-02-25 08:07 | Cardiology Progress Note ---
Assessment and Plan (1) Pulmonary edema Status: Acute Current Visit: Yes (2) High risk medication use Status: Acute Current Visit: Yes (3) Shortness of breath Status: Acute Current Visit: Yes (4) Hypertension Status: Chronic Current Visit: Yes (5) Dyslipidemia Status: Chronic Current Visit: Yes (6) Risk for falls Status: Chronic Current Visit: Yes (7) Parkinsons disease Status: Chronic Current Visit: Yes (8) CAD (coronary artery disease) Status: Chronic Current Visit: Yes (9) Paroxysmal atrial fibrillation Status: Chronic Current Visit: Yes (10) Acute on chronic renal insufficiency Status: Acute Assessment and plan: Creatinine has continued to worsen. Current Visit: Yes Cardiology - PN: Subj Interval history: The patient has not diuresed significantly but his creatinine has gone up. He actually looks significantly better despite the fact that his I's and O's are not negative and his creatinine has gone up. He seems to be breathing better he certainly is more spontaneous. Exam (Progress Note) - Constitutional Vitals: Period Temp Pulse Resp BP Sys/Spears Pulse Ox Last 24 Hr 96.6 F-99.5 F 63-91 16-20 93-144/49-63 94-98 General appearance: normal weight - Head Head exam: Present: normal inspection - Eye Eye exam: Present: EOMI Pupils: Present: CHARISSA - Respiratory Respiratory exam: Present: clear to auscultation bilaterally (Suboptimal effort diminished breath sounds at the bases) - Cardiovascular Cardiovascular exam: Present: irregular rhythm (Rate is controlled) - GI/Abdominal GI/Abdominal exam: Present: normal bowel sounds - Neurological Exam Neurological exam: Present: alert. Absent: oriented X3 - Psychiatric Psychiatric exam: Present: normal affect, normal mood - Skin Skin exam: Present: normal color, warm Result/EKG - Labs CBC & BMP: 02/25/17 03:44 02/25/17 03:44 Labs: Laboratory Results - last 24 hr 02/25/17 02/25/17 03:44 03:44 WBC 6.4 RBC 3.67 L Hgb 10.8 L Hct 32.9 L MCV 89.6 MCH 29 MCHC 32.8 RDW 14.5 Plt Count 154 MPV 10.5 Neut % (Auto) 66.6 Lymph % (Auto) 17.3 L [place] % (Auto) 11.9 Eos % (Auto) 3.4 Baso % (Auto) 0.5 Neut # (Auto) 4.3 Lymph # (Auto) 1.1 L [place] # (Auto) 0.8 Eos # (Auto) 0.2 Baso # (Auto) 0.0 Immature Gran % 0.3 Nucleated RBC % 0.0 Immature Gran # 0.02 Nucleated RBCs # 0.00 Sodium 141 Potassium 3.0 L Chloride 100 Carbon Dioxide 30 Anion Gap 14.0 BUN 49 H Creatinine 2.20 H GFR Calculation 30 BUN/Creatinine Ratio 22.00 H Glucose 81 Calculated Osmolality 292.3 Calcium 8.4 L Magnesium 2.2 Quality Measures - Stroke Onset of Symptoms Date: 02/19/17 Specialty Discharge - Follow Up or Referrals
[2017-02-25] MEDS: ASCORBIC ACID 500 MG TABLET PO SCH ×2 (08:54→22:19)
[2017-02-25] MEDS: FUROSEMIDE 40 MG TABLET PO SCH (08:54)
[2017-02-25] MEDS: DILTIAZEM 30 MG TABLET PO SCH ×3 (08:54→22:21)
[2017-02-25] MEDS: CARBIDOPA/LEVODOPA 25-100 MG TABLET PO SCH ×3 (08:54→22:19)
[2017-02-25] MEDS: MAGNESIUM OXIDE 400 MG TABLET PO SCH ×2 (08:54→22:21)
[2017-02-25] MEDS: MULTIVITAMIN (OCUVITE) TABLET PO SCH (08:54)
[2017-02-25] MEDS: CARVEDILOL 12.5 MG TABLET PO SCH ×2 (08:54→22:21)
[2017-02-25] MEDS: TAMSULOSIN 0.4 MG CAPSULE PO SCH (08:55)
[2017-02-25] MEDS: PANTOPRAZOLE 40 MG TABLET PO SCH (08:55)
[2017-02-25] MEDS: metOLazone 5 MG TABLET PO SCH ×2 (08:55→09:40)
[2017-02-25] MEDS: FINASTERIDE 5 MG TABLET PO SCH (08:55)
[2017-02-25] MEDS: POTASSIUM CHLORIDE 20 MEQ TABLET PO SCH ×2 (08:56→22:22)
[2017-02-25] MEDS: DESITIN 4OZ/NYSTATIN 15 GRAM MIXTURE PASTE TOP SCH ×2 (09:40→22:23)
[2017-02-25] MEDS: APIXABAN 2.5 MG TABLET PO SCH ×2 (09:40→22:20)
[2017-02-25] MEDS: NORTRIPTYLINE 25 MG CAPSULE PO SCH (22:19)
[2017-02-25] MEDS: ASPIRIN EC 81 MG TABLET PO SCH (22:20)
[2017-02-25] MEDS: MIRTAZAPINE 15 MG TABLET PO SCH (22:20)
[2017-02-25] MEDS: MONTELUKAST 10 MG TABLET PO SCH (22:20)
[2017-02-25] MEDS: DONEPEZIL 5 MG TABLET PO SCH (22:21)
[2017-02-25] MEDS: OLANZapine 5 MG TABLET PO SCH (22:21)
[2017-02-26 03:30] LABS: Basophils % 0.4 % (0.0-0.8); Eosinophils # 0.2 10*3/uL (0.0-0.87); Eosinophils % 2.9 % (0.00-10.9); Hematocrit 33.4 VOL% (42.0-52.0); Immature Granulocytes % 0.4 %; Immature Granulocytes Absolute 0.03 #; Lymphocytes # 1.1 10*3/uL (1.4-4.0); Lymphocytes % 15.9 % (21.2-54.2); Mean Corpuscular HGB Conc 32.9 GM/DL (32-36); Mean Corpuscular Hemoglobin 30 PG (27-34); Mean Corpuscular Volume 89.5 FL (87-102); Mean Platelet Volume 9.7 FL (9.6-12.0); Monocytes # 0.7 10*3/uL (0.11-0.8); Monocytes % 10.6 % (1.7-12.7); Neutrophils # 4.8 10*3/uL (1.4-7.4); Neutrophils % 69.8 % (38.7-73.9); Platelet Count 156 T/CUMM (130-400); Red Blood Count 3.73 MC/CUMM (3.8-5.5); Red Cell Distribution Width 14.5 % (9.3-17.3); White Blood Count 6.9 T/CUMM (4-12)
[2017-02-26 04:06] LABS: Calcium 8.1 MG/DL (8.5-10.1); Magnesium 2.2 MG/DL (1.8-2.4); Osmolality,Calculated 297.1 MOS/KG (273-304); Potassium 3.1 MMOL/L (3.5-5.1)
[2017-02-26 04:08] LABS: Calcium 8.4 MG/DL (8.5-10.1); Potassium 3.1 MMOL/L (3.5-5.1)
[2017-02-26] MEDS ORDERED: POTASSIUM CHLORIDE 20 MEQ TABLET PO ONE (07:52)
[2017-02-26] MEDS: MULTIVITAMIN (OCUVITE) TABLET PO SCH (08:38)
[2017-02-26] MEDS: CARVEDILOL 12.5 MG TABLET PO SCH (08:38)
[2017-02-26] MEDS: TAMSULOSIN 0.4 MG CAPSULE PO SCH (08:38)
[2017-02-26] MEDS: APIXABAN 2.5 MG TABLET PO SCH ×2 (08:39→21:45)
[2017-02-26] MEDS: ASCORBIC ACID 500 MG TABLET PO SCH ×2 (08:39→21:46)
[2017-02-26] MEDS: DILTIAZEM 30 MG TABLET PO SCH ×2 (08:39→15:09)
[2017-02-26] MEDS: FINASTERIDE 5 MG TABLET PO SCH (08:40)
[2017-02-26] MEDS: CARBIDOPA/LEVODOPA 25-100 MG TABLET PO SCH ×3 (08:40→21:44)
[2017-02-26] MEDS: POTASSIUM CHLORIDE 20 MEQ TABLET PO SCH ×3 (08:40→21:45)
[2017-02-26] MEDS: PANTOPRAZOLE 40 MG TABLET PO SCH (08:40)
[2017-02-26] MEDS: MAGNESIUM OXIDE 400 MG TABLET PO SCH ×2 (08:40→21:45)
[2017-02-26] MEDS: FUROSEMIDE 40 MG TABLET PO SCH (08:40)
[2017-02-26] MEDS: DESITIN 4OZ/NYSTATIN 15 GRAM MIXTURE PASTE TOP SCH ×2 (09:05→21:46)
--- NOTE | 2017-02-26 09:08 | Cardiology Progress Note ---
Assessment and Plan (1) Pulmonary edema Status: Acute Assessment and plan: This is much better medical therapy Current Visit: Yes (2) High risk medication use Status: Acute Current Visit: Yes (3) Hypertension Status: Chronic Current Visit: Yes (4) Dyslipidemia Status: Chronic Current Visit: Yes (5) Risk for falls Status: Chronic Current Visit: Yes (6) Parkinsons disease Status: Chronic Current Visit: Yes (7) CAD (coronary artery disease) Status: Chronic Current Visit: Yes Qualifiers: Coronary Disease-Associated Artery/Lesion type: [place] artery [place] vs. transplanted heart: [place] heart Associated angina: without angina Qualified Code(s): I25.10 - Atherosclerotic heart disease of [place] coronary artery without angina pectoris (8) Paroxysmal atrial fibrillation Status: Chronic Current Visit: Yes (9) Acute on chronic renal insufficiency Status: Acute Assessment and plan: Creatinine has continued to worsen and I think it is due to Stealth volume loss Current Visit: Yes (10) Hypokalemia Status: Acute Current Visit: Yes (11) CHF (congestive heart failure), NYHA class III Status: Chronic Current Visit: Yes Qualifiers: Congestive heart failure type: combined Congestive heart failure chronicity : acute Qualified Code(s): I50.41 - Acute combined systolic (congestive) and diastolic (congestive) heart failure Cardiology - PN: Subj Interval history: Mr. De Leon an 81-year-old gentleman with newly diagnosed atrial fibrillation and also decline in his ejection fraction. He has a very poor functional status due to dementia and Parkinson disease. He resides in this assisted living in [facility]. He seems to me as though he will likely need a higher level of care at this point. He has brothers that are his family support. The patient is incontinent. I ordered a [place] for the purposes of keeping up with his eyes and nose earlier in the week but that did not happen. He looks clinically much better. His eyes and nose are incomplete but his potassium remains low and I think this is due to large volume diuresis that has been difficult to monitor. It is my impression given his renal insufficiency and his poor functional status he is not a candidate for left heart cath. I recommend medical management for standard heart failure. I discussed this with his brother who has power of mold chipper on Monday. No family at the bedside today. We will replete his potassium today and adjust his medicines and hopefully he can go to swing bed in the next 24-48 hours. The family has requested that he go to [facility] so that he could be close to them. I am not sure that he will be able to return to [facility] I do not know the level of care that they can provide it may be quite possible. Exam (Progress Note) - Constitutional Vitals: Period Temp Pulse Resp BP Sys/Spears Pulse Ox Last 24 Hr 97.1 F-98.4 F 70-102 16-22 106-151/52-66 98-100 General appearance: normal weight, other (Not a spontaneous this morning) - Head Head exam: Present: normal inspection - Respiratory Respiratory exam: Present: clear to auscultation bilaterally (Much clearer than on admission no tachypnea no wheezing and he is lying with the head of bed up only about 10) - Cardiovascular Cardiovascular exam: Present: irregular rhythm - GI/Abdominal GI/Abdominal exam: Present: normal bowel sounds - Extremities Exam Extremities exam: Present: normal inspection - Neurological Exam Neurological exam: Present: alert. Absent: oriented X3 - Psychiatric Psychiatric exam: Present: flat affect - Skin Skin exam: Present: normal color, warm, dry Result/EKG - Labs CBC & BMP: 02/26/17 03:20 02/26/17 03:20 Labs: Laboratory Results - last 24 hr 02/26/17 02/26/17 02/26/17 03:20 03:20 03:20 WBC 6.9 RBC 3.73 L Hgb 11.0 L Hct 33.4 L MCV 89.5 MCH 30 MCHC 32.9 RDW 14.5 Plt Count 156 MPV 9.7 Neut % (Auto) 69.8 Lymph % (Auto) 15.9 L [place] % (Auto) 10.6 Eos % (Auto) 2.9 Baso % (Auto) 0.4 Neut # (Auto) 4.8 Lymph # (Auto) 1.1 L [place] # (Auto) 0.7 Eos # (Auto) 0.2 Baso # (Auto) 0.0 Immature Gran % 0.4 Nucleated RBC % 0.0 Immature Gran # 0.03 Nucleated RBCs # 0.00 Sodium 142 143 Potassium 3.1 L 3.1 L Chloride 100 101 Carbon Dioxide 32 32 Anion Gap 13.1 13.1 BUN 55 H 55 H Creatinine 2.20 H 2.30 H GFR Calculation 30 28 BUN/Creatinine Ratio 25.00 H 23.00 H Glucose 102 103 Calculated Osmolality 297.1 299.0 Calcium 8.1 L 8.4 L Magnesium 2.2 Quality Measures - Stroke Onset of Symptoms Date: 02/19/17 Specialty Discharge - Follow Up or Referrals
[2017-02-26] MEDS: DONEPEZIL 5 MG TABLET PO SCH (21:44)
[2017-02-26] MEDS: CARVEDILOL 25 MG TABLET PO SCH (21:45)
[2017-02-26] MEDS: OLANZapine 5 MG TABLET PO SCH (21:45)
[2017-02-26] MEDS: MIRTAZAPINE 15 MG TABLET PO SCH (21:45)
[2017-02-26] MEDS: NORTRIPTYLINE 25 MG CAPSULE PO SCH (21:45)
[2017-02-26] MEDS: MONTELUKAST 10 MG TABLET PO SCH (21:45)
[2017-02-26] MEDS: ASPIRIN EC 81 MG TABLET PO SCH (21:46)
[2017-02-27 04:24] LABS: Basophils % 0.3 % (0.0-0.8); Eosinophils # 0.2 10*3/uL (0.0-0.87); Eosinophils % 2.7 % (0.00-10.9); Hematocrit 33.6 VOL% (42.0-52.0); Immature Granulocytes % 0.2 %; Immature Granulocytes Absolute 0.01 #; Lymphocytes # 1.4 10*3/uL (1.4-4.0); Mean Corpuscular HGB Conc 32.7 GM/DL (32-36); Mean Corpuscular Hemoglobin 30 PG (27-34); Mean Corpuscular Volume 90.6 FL (87-102); Mean Platelet Volume 9.6 FL (9.6-12.0); Monocytes # 0.8 10*3/uL (0.11-0.8); Monocytes % 11.9 % (1.7-12.7); Neutrophils % 62.9 % (38.7-73.9); Platelet Count 141 T/CUMM (130-400); Red Blood Count 3.71 MC/CUMM (3.8-5.5); Red Cell Distribution Width 14.2 % (9.3-17.3); White Blood Count 6.4 T/CUMM (4-12)
[2017-02-27 04:51] LABS: Calcium 8.3 MG/DL (8.5-10.1); Osmolality,Calculated 302.8 MOS/KG (273-304); Potassium 3.9 MMOL/L (3.5-5.1)
[2017-02-27 04:52] LABS: Calcium 8.4 MG/DL (8.5-10.1); Magnesium 2.3 MG/DL (1.8-2.4); Potassium 3.9 MMOL/L (3.5-5.1)
--- NOTE | 2017-02-27 08:26 | Cardiology Progress Note ---
Cardiology - PN: Subj Interval history: Cardiology note 81-year-old man Admitted with CHF and acute on chronic renal insufficiency. Patient has Parkinson's disease and is debilitated. O2 sat 98% on 2 L Blood pressure 120/70 Appetite is good Irregular rhythm no murmur Decreased breath sounds but clear Abdomen soft benign No leg edema Lab data today White count 6.4 hemoglobin 9.0 hematocrit 33.6 sodium 144 potassium 3.9 chloride 105 CO2 31 BUN 59 creatinine 2.0 Glucose 95 magnesium 2.3 Impression Pulmonary edema Hypertension Parkinson's disease Atrial fibrillation Acute on chronic renal insufficiency Debility Plan Family has requested swing bed at [facility] working on this matter now. Coreg 25 mg twice daily Eliquis 2.5 mg twice daily Carbidopa levodopa Flomax 0.4 mg daily Awaiting swing bed transfer. No family present at this time Exam (Progress Note) - Constitutional Vitals: Period Temp Pulse Resp BP Sys/Spears Pulse Ox Last 24 Hr 97.8 F-98.7 F 49-90 18-21 108-139/55-75 92-99 Result/EKG - Labs CBC & BMP: 02/27/17 04:10 02/27/17 04:10 Labs: Laboratory Results - last 24 hr 02/27/17 02/27/17 02/27/17 04:10 04:10 04:10 WBC 6.4 RBC 3.71 L Hgb 11.0 L Hct 33.6 L MCV 90.6 MCH 30 MCHC 32.7 RDW 14.2 Plt Count 141 MPV 9.6 Neut % (Auto) 62.9 Lymph % (Auto) 22.0 [place] % (Auto) 11.9 Eos % (Auto) 2.7 Baso % (Auto) 0.3 Neut # (Auto) 4.0 Lymph # (Auto) 1.4 [place] # (Auto) 0.8 Eos # (Auto) 0.2 Baso # (Auto) 0.0 Immature Gran % 0.2 Nucleated RBC % 0.0 Immature Gran # 0.01 Nucleated RBCs # 0.00 Sodium 143 144 Potassium 3.9 3.9 Chloride 104 105 Carbon Dioxide 32 31 Anion Gap 10.9 11.9 BUN 59 H 59 H Creatinine 2.00 H 2.00 H GFR Calculation 32 32 BUN/Creatinine Ratio 29.00 H 29.00 H Glucose 94 95 Calculated Osmolality 301.0 302.8 Calcium 8.4 L 8.3 L Magnesium 2.3 Quality Measures - Stroke Onset of Symptoms Date: 02/19/17 Specialty Discharge - Follow Up or Referrals
--- NOTE | 2017-02-27 08:49 | Cardiology Progress Note ---
Assessment and Plan - Time spent with patient Time spent with patient: Greater than 30 minutes (1) Atrial fibrillation with RVR Status: Resolved Assessment and plan: SEE PLAN OF CARE LISTED BELOW Current Visit: Yes (2) Shortness of breath Status: Acute Assessment and plan: SEE PLAN OF CARE LISTED BELOW Current Visit: Yes (3) CHF (congestive heart failure), NYHA class III Status: Chronic Assessment and plan: SEE PLAN OF CARE LISTED BELOW Current Visit: Yes Qualifiers: Congestive heart failure type: combined Congestive heart failure chronicity : acute Qualified Code(s): I50.41 - Acute combined systolic (congestive) and diastolic (congestive) heart failure (4) Hypertension Status: Chronic Assessment and plan: SEE PLAN OF CARE LISTED BELOW Current Visit: Yes (5) Dyslipidemia Status: Chronic Assessment and plan: SEE PLAN OF CARE LISTED BELOW Current Visit: Yes (6) Risk for falls Status: Chronic Assessment and plan: SEE PLAN OF CARE LISTED BELOW Current Visit: Yes (7) Parkinsons disease Status: Chronic Assessment and plan: SEE PLAN OF CARE LISTED BELOW Current Visit: Yes (8) Hypomagnesemia Status: Acute Assessment and plan: SEE PLAN OF CARE LISTED BELOW Current Visit: Yes (9) CAD (coronary artery disease) Status: Chronic Assessment and plan: SEE PLAN OF CARE LISTED BELOW Current Visit: Yes Qualifiers: Coronary Disease-Associated Artery/Lesion type: [place] artery [place] vs. transplanted heart: [place] heart Associated angina: without angina Qualified Code(s): I25.10 - Atherosclerotic heart disease of [place] coronary artery without angina pectoris (10) Pneumonia Status: Resolved Assessment and plan: SEE PLAN OF CARE LISTED BELOW. Suspected pneumonia, type to be determined. Current Visit: Yes Cardiology - PN: Subj Interval history: FILER REPAIRER: DR. CHÁVEZ SUMMARY: Mr. De Leon, 81WM, history of coronary artery disease (status post PCI to RCA [place] 2004), hypertension, dyslipidemia, PAF, Parkinson's Disease. Last stress test December 21, 2015 with EF 62%. Admitted February 21, 2017 with atrial fibrillation with rapid ventricular response, acute CHF and being treated for potential possible pneumonia. Dr. Eduardo saw the patient and it is unclear if he is actually had pneumonia but he has been treated for such with antibiotics. He has had a decline in his ejection fraction per recent echocardiogram (EF 30%), mild to moderate MR, RVSP 35mmHg + RAP. FEBRUARY 27, 2017: Over the weekend, patient has improved. He is diuresed 6 kg since admission. He is breathing more comfortably this morning. He has been treated for hypokalemia repeatedly suggesting that he has diuresed well. He has not felt to be a good candidate for cardiac catheterization given his renal insufficiency and poor functional status. Medical management for CHF has instituted. He remains in atrial fibrillation, controlled rate. Frequent PVCs during this hospital stay. Mr. De Leon originally was admitted from an assisted living facility however he is being evaluated for [place] at this time. He may not be able to return to personal halfway as he may require a higher level of assistance than what they can provide. Hopefully, patient may be considered for transfer today, possibly tomorrow. Will further discuss with Dr. Chávez and await additional recommendations. ASSESSMENT/PLAN: 1. ATRIAL FIBRILLATION WITH RVR- rate controlled on oral Diltiazem, low dose Eliquis has been initiated. Started on a standard beta fareed. 2. ACUTE CHF - acute CHF secondary to systolic dysfunction (EF 30%) and diastolic dysfunction, NYHA CLASS III. Continues to slowly improve. 3. POSSIBLE PNEUMONIA - Appreciate Dr. Eduardo assistance. CT chest revealed large amount of pleural effusion bilaterally. We will continue diuresis. Patient has been started on IV antibiotics. No elevation in white blood cell count nor fever but will continue to treat accordingly. 4. HYPERTENSION - well-controlled on Coreg. Unable to incorporate TU, blood pressure will not allow. Also, for fear of worsening renal insufficiency. 5. DYSLIPIDEMIA - continue lipid-lowering agent. Triglycerides 73, cholesterol 141, LDL 98, HDL 34. 6. KNOWN CAD - 2005 PCI to RCA in [place], [place]. No complaints of chest pain. 7. PARKINSON'S DISEASE - continue current plan of care. Appreciate Dr. Morgan's assistance. Medications adjusted per Dr. Pearce. 8. HIGH FALLS RISK - Instituted falls prevention protocol 9. HYPOMAGNESEMIA - resolved. 10. CARDIOMYOPATHY - Undetermined etiology at this time as this is new diagnosis. Stress test December 2015 revealed an EF of 62%. Poor candidate for invasive workup at this time as the patient remains in poor health in general. Medical therapy NSAIDs. 11. HYPOKALEMIA - has required continued repletion. This morning potassium is 3.9 Exam (Progress Note) - Constitutional Vitals: Period Temp Pulse Resp BP Sys/Spears Pulse Ox Last 24 Hr 97.8 F-98.7 F 49-90 18-21 108-139/55-75 92-99 Exam: General: [Asleep, wakes easily, head of the bed 30. Pleasant and cooperative] HEENT: [PERRL, normocephalic, atraumatic. Mucous membranes moist. No jaundice noted. Conjunctiva moist and clear, sclerae anicteric] Neck: JVD improved overnight, no thyromegaly or lymphadenopathy noted. No carotid bruit appreciated Cardiac: [Irregularly irregular rhythm, controlled rate. ] [No obvious murmur , rub or gallop.] Lungs: [Inspiratory crackles noted left lower lobe, improved. Continues to require oxygen via nasal cannula. Abdomen: Soft, bowel sounds normoactive. Nontender and nondistended. No abdominal bruit or thrill noted. No masses noted. Musculoskeletal: No fluid collection. Decreased range of motion is noted. Extremities: No clubbing, cyanosis noted. [ No edema noted.] Upper extremity pulses 2+. Lower extremity pulses 2+. Capillary refill less than 3 seconds. Skin: No unusual lesions or rashes. No skin breakdown appreciated. Neuro: Awake, alert. Moves all extremities well without hemiparesis or paralysis. Parkinsonian tremor present. Result/EKG - Labs CBC & BMP: 02/27/17 04:10 02/27/17 04:10 Lab Results: I have reviewed the past 24 hour labs Labs: Laboratory Results - last 24 hr 02/27/17 02/27/17 02/27/17 04:10 04:10 04:10 WBC 6.4 RBC 3.71 L Hgb 11.0 L Hct 33.6 L MCV 90.6 MCH 30 MCHC 32.7 RDW 14.2 Plt Count 141 MPV 9.6 Neut % (Auto) 62.9 Lymph % (Auto) 22.0 [place] % (Auto) 11.9 Eos % (Auto) 2.7 Baso % (Auto) 0.3 Neut # (Auto) 4.0 Lymph # (Auto) 1.4 [place] # (Auto) 0.8 Eos # (Auto) 0.2 Baso # (Auto) 0.0 Immature Gran % 0.2 Nucleated RBC % 0.0 Immature Gran # 0.01 Nucleated RBCs # 0.00 Sodium 143 144 Potassium 3.9 3.9 Chloride 104 105 Carbon Dioxide 32 31 Anion Gap 10.9 11.9 BUN 59 H 59 H Creatinine 2.00 H 2.00 H GFR Calculation 32 32 BUN/Creatinine Ratio 29.00 H 29.00 H Glucose 94 95 Calculated Osmolality 301.0 302.8 Calcium 8.4 L 8.3 L Magnesium 2.3 - Diagnostic Findings Procedure: Chest x-ray: report reviewed by me - EKG EKG results: interpreted by il EKG shows: atrial fibrillation Quality Measures - Stroke Onset of Symptoms Date: 02/19/17 Specialty Discharge - Follow Up or Referrals
[2017-02-27] MEDS: ASCORBIC ACID 500 MG TABLET PO SCH ×2 (08:52→22:11)
[2017-02-27] MEDS: CARBIDOPA/LEVODOPA 25-100 MG TABLET PO SCH ×3 (08:53→21:52)
[2017-02-27] MEDS: MULTIVITAMIN (OCUVITE) TABLET PO SCH (08:53)
[2017-02-27] MEDS: PANTOPRAZOLE 40 MG TABLET PO SCH (08:54)
[2017-02-27] MEDS: APIXABAN 2.5 MG TABLET PO SCH ×2 (08:54→21:53)
[2017-02-27] MEDS: FINASTERIDE 5 MG TABLET PO SCH (08:54)
[2017-02-27] MEDS: CARVEDILOL 25 MG TABLET PO SCH ×2 (08:55→22:00)
[2017-02-27] MEDS: TAMSULOSIN 0.4 MG CAPSULE PO SCH (08:55)
[2017-02-27] MEDS: MAGNESIUM OXIDE 400 MG TABLET PO SCH ×2 (08:55→21:54)
[2017-02-27] MEDS: POTASSIUM CHLORIDE 20 MEQ TABLET PO SCH ×3 (08:56→21:55)
[2017-02-27] MEDS: DESITIN 4OZ/NYSTATIN 15 GRAM MIXTURE PASTE TOP SCH ×2 (08:58→22:04)
[2017-02-27 12:07] LABS: Apearance,Urine CLEAR (Clear); Bilirubin,Urine Negative (Negative); Blood, Urine Negative (Negative); Glucose,Urine (UA) Negative (Negative); Hyaline Casts,Urine 1 /LPF (0-3); Ketones,Urine 5 mg/dL (Negative); Mucus,Urine Occasional /LPF (Occasional); Nitrite,Urine Negative (Negative); Protein,Urine Negative; RBC,Urine 1 /HPF (0-4); Urine Color Yellow (Yellow); Urine Specific Gravity 1.015 (1.001-1.035); Urine Urobilinogen < 2.0 EU/DL (0.2-1.0); WBC,Urine 1 /HPF (0-6)
--- NOTE | 2017-02-27 16:00 | Neurology Progress Note ---
Neurology - PN : Subjective Interval history: Patient seems to be doing better clinically and neurologically. He is getting up and walking some with mod assist. His speech is fluent. Had an uneventful weekend. Exam (Progress Note) - Constitutional Vitals: Period Temp Pulse Resp BP Sys/Spears Pulse Ox Last 24 Hr 97.5 F-98.7 F 49-130 18-22 108-139/55-75 92-99 Exam: GENERAL: Patient is in no acute distress. NECK: Neck is supple. There is no JVD. No carotid bruits present. No thyroid masses. CVS: First and second heart sounds are normal. There is no S3 present. Regular rate and rhythm. RESPIRATORY: Lungs are clear to auscultation without any rales or rhonchi. ABDOMEN: Soft and non-tender. Bowel sounds are present. There is no hepatosplenomegaly. EXT: There is no palpable edema. Peripheral pulses are present. Skin: No rashes Central Nervous system: General: Alert, awake Speech: Fluent with reduced volume output Comprehension: Fair Facial expressions: Masklike Cranial Nerves: Pupils are equally reactive to light. Extraocular movements are intact. No facial asymmetry is seen. Motor: Bilateral bradykinesia and mild cogwheel rigidity Strength difficult to assess but is symmetrical Sensory: Unreliable Reflexes: 1+ and symmetrical Cerebellar function: Normal finger to nose and heel to casey testing. Toes: Equivocal Gait: Slightly broad-based short shuffling gait with stooped posture. Could not take more than couple of steps. Results - Labs CBC & BMP: 02/27/17 04:10 02/27/17 04:10 Assessment and Plan (1) Parkinsons disease Status: Chronic Assessment and plan: Continue Sinemet Awaiting TMR placement Sign off please call as needed Follow-up in 4-6 week Current Visit: Yes Quality Measures - Stroke Onset of Symptoms Date: 02/19/17 Specialty Discharge - Follow Up or Referrals Follow up with: Bk Morgan MD [Physician] - 1 Month
[2017-02-27] MEDS: ASPIRIN EC 81 MG TABLET PO SCH (21:52)
[2017-02-27] MEDS: DONEPEZIL 5 MG TABLET PO SCH (21:52)
[2017-02-27] MEDS: NORTRIPTYLINE 25 MG CAPSULE PO SCH (22:00)
[2017-02-27] MEDS: MONTELUKAST 10 MG TABLET PO SCH (22:11)
[2017-02-27] MEDS: OLANZapine 5 MG TABLET PO SCH (22:11)
[2017-02-27] MEDS: MIRTAZAPINE 15 MG TABLET PO SCH (22:11)
[2017-02-28 05:48] LABS: Basophils % 0.6 % (0.0-0.8); Eosinophils # 0.1 10*3/uL (0.0-0.87); Hematocrit 35.1 VOL% (42.0-52.0); Hemoglobin 11.4 GM/DL (14.0-18.0); Immature Granulocytes % 0.4 %; Immature Granulocytes Absolute 0.03 #; Lymphocytes # 1.4 10*3/uL (1.4-4.0); Lymphocytes % 20.3 % (21.2-54.2); Mean Corpuscular HGB Conc 32.5 GM/DL (32-36); Mean Corpuscular Hemoglobin 30 PG (27-34); Mean Corpuscular Volume 92.6 FL (87-102); Mean Platelet Volume 9.7 FL (9.6-12.0); Monocytes # 0.8 10*3/uL (0.11-0.8); Monocytes % 11.7 % (1.7-12.7); Neutrophils # 4.5 10*3/uL (1.4-7.4); Platelet Count 144 T/CUMM (130-400); Red Blood Count 3.79 MC/CUMM (3.8-5.5); Red Cell Distribution Width 14.3 % (9.3-17.3); White Blood Count 6.9 T/CUMM (4-12)
[2017-02-28 06:21] LABS: Calcium 8.7 MG/DL (8.5-10.1); Magnesium 2.5 MG/DL (1.8-2.4); Potassium 4.3 MMOL/L (3.5-5.1)
[2017-02-28] MEDS: ASCORBIC ACID 500 MG TABLET PO SCH (08:20)
[2017-02-28] MEDS: POTASSIUM CHLORIDE 20 MEQ TABLET PO SCH ×2 (08:22→15:51)
[2017-02-28] MEDS: MULTIVITAMIN (OCUVITE) TABLET PO SCH (08:22)
[2017-02-28] MEDS: FINASTERIDE 5 MG TABLET PO SCH (08:22)
[2017-02-28] MEDS: MAGNESIUM OXIDE 400 MG TABLET PO SCH (08:23)
[2017-02-28] MEDS: CARBIDOPA/LEVODOPA 25-100 MG TABLET PO SCH ×2 (08:23→15:51)
[2017-02-28] MEDS: APIXABAN 2.5 MG TABLET PO SCH (08:23)
[2017-02-28] MEDS: TAMSULOSIN 0.4 MG CAPSULE PO SCH (08:23)
[2017-02-28] MEDS: CARVEDILOL 25 MG TABLET PO SCH (08:24)
[2017-02-28] MEDS: PANTOPRAZOLE 40 MG TABLET PO SCH (08:24)
--- NOTE | 2017-02-28 08:29 | Cardiology Progress Note ---
Cardiology - PN: Subj Interval history: Cardiology note 81-year-old man admitted with congestive heart failure and atrial fibrillation. Also has advanced Parkinson's disease with debility. Blood pressure 132/84 O2 sat 96% on room air Irregular rhythm no murmur decreased breath sounds few rhonchi in the left base Abdomen soft benign no leg edema Lab data today Hemoglobin 11.4 hematocrit 35.1 white count 6.9 Sodium 143 potassium 4.3 chloride 107 CO2 29 BUN 56 creatinine 1.70 Glucose 96 magnesium 2.5 Impression Congestive heart failure Cardiomyopathy, recent echo showed ejection fraction 30% Chronic renal insufficiency CAD, status post RCA stent 2004 Hypertension Nuclear stress test December 21, 2015 negative for ischemia Parkinson's disease with debility BPH on Flomax Recurrent paroxysmal atrial fibrillation. Sotalol was stopped earlier this admission due to worsening renal function. Plan Eliquis 2.5 mg twice daily Coreg 25 mg twice daily Carbidopa levodopa Flomax 0.4 mg daily Awaiting transfer to [facility] bed Exam (Progress Note) - Constitutional Vitals: Period Temp Pulse Resp BP Sys/Spears Pulse Ox Last 24 Hr 97.5 F-98.5 F 90-130 18-22 104-141/60-79 96-100 Result/EKG - Labs CBC & BMP: 02/28/17 05:31 02/28/17 05:31 Labs: Laboratory Results - last 24 hr 02/27/17 02/28/17 02/28/17 12:00 05:31 05:31 WBC 6.9 RBC 3.79 L Hgb 11.4 L Hct 35.1 L MCV 92.6 MCH 30 MCHC 32.5 RDW 14.3 Plt Count 144 MPV 9.7 Neut % (Auto) 65.0 Lymph % (Auto) 20.[address] % (Auto) 11.7 Eos % (Auto) 2.0 Baso % (Auto) 0.6 Neut # (Auto) 4.5 Lymph # (Auto) 1.4 Lane # (Auto) 0.8 Eos # (Auto) 0.1 Baso # (Auto) 0.0 Immature Gran % 0.4 Nucleated RBC % 0.0 Immature Gran # 0.03 Nucleated RBCs # 0.00 Sodium 143 Potassium 4.3 Chloride 107 Carbon Dioxide 29 Anion Gap 11.3 BUN 56 H Creatinine 1.70 H GFR Calculation 39 BUN/Creatinine Ratio 32.00 H Glucose 102 Calculated Osmolality 300.0 Calcium 8.7 Magnesium 2.5 H Urine Color Yellow Urine Appearance Clear Urine pH 6.0 Ur Specific Marceline 1.015 Urine Protein Negative Urine Glucose (UA) Negative Urine Ketones 5 Urine Blood Negative Urine Nitrate Negative Urine Bilirubin Negative Urine Urobilinogen < 2.0 H Urine Leukocytes Negative Urine RBC 1 Urine WBC 1 Hyaline Casts 1 Urine Mucus Occasional Ur Culture Indicated? Not indicated Quality Measures - Stroke Onset of Symptoms Date: 02/19/17 Specialty Discharge - Follow Up or Referrals Follow up with: Bk Morgan MD [Physician] - 1 Month
--- NOTE | 2017-02-28 09:24 | XRay Report ---
XR chest 1V Indication: CHF Comparison: Chest x-ray dated February 21, 2017 Technique: Single frontal view of the chest. Findings: The cardiomediastinal silhouette is stable in configuration. Moderately improved pulmonary edema and pleural fluid. There is nonspecific reticular pattern throughout the bilateral lungs suspicious for residual interstitial pulmonary edema. Small residual bilateral pleural fluid suspected. Visualized osseous and surrounding soft tissue structures appear grossly unchanged. IMPRESSION: As above. PROCEDURE INTERPRETED AT [facility] DEPARTMENT OF RADIOLOGY Final Report Signed by: Dr Sarath Escobar
--- NOTE | 2017-02-28 15:31 | Discharge Summary ---
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 CHÁVEZ SUMMARY: Mr. De Leon, 81WM, history of coronary artery disease (status post PCI to RCA 2004), hypertension, dyslipidemia, PAF, Parkinson's Disease. Last stress test December 21, 2015 with EF 62%. Admitted February 21, 2017 with atrial fibrillation with rapid ventricular response, acute CHF NYHA Class IV on admission, Class II-III at discharge. He was treated for possible pneumonia. Dr. Eduardo saw the patient and it is unclear if he is actually had pneumonia but he was treated for such with antibiotics. He has had a decline in his ejection fraction per recent echocardiogram (EF 30%), mild to moderate MR, RVSP 35mmHg + RAP. He is diuresed 7 kg since admission. He was frequently treated for low potassium levels. He was not felt to be a good candidate for cardiac catheterization given his renal insufficiency and poor functional status. Medical management for CHF continued. He remains in atrial fibrillation, but controlled rate. he had frequent PVCs during this hospital stay. Mr. De Leon originally was admitted from an assisted living facility however he has been accepted to [facility] for further strengthening and management at this time. Having felt he met maximal medical therapy, patient is being discharged in stable condition. He has had rate controlled atrial fib, now taking low-dose Eliquis for stroke prevention. He is tolerating beta-fareed. Unfortunately, unable to incorporate an TU inhibitor as blood pressure will not allow for such however, there is fear of worsening his renal insufficiency. ASSESSMENT/PLAN: 1. ATRIAL FIBRILLATION WITH RVR- rate controlled on oral Diltiazem, low dose Eliquis has been initiated. Tolerating beta fareed. 2. ACUTE CHF - acute CHF secondary to systolic dysfunction (EF 30%) and diastolic dysfunction, NYHA CLASS III at discharge. Continues to slowly improve. 3. POSSIBLE PNEUMONIA - Appreciate Dr. Eduardo assistance. CT chest revealed large amount of pleural effusion bilaterally. Diuresis ensued and treatment with antibiotics. 4. HYPERTENSION - well-controlled on Coreg. Unable to incorporate TU, blood pressure will not allow and for fear of worsening renal insufficiency. 5. DYSLIPIDEMIA - continue lipid-lowering agent. Triglycerides 73, cholesterol 141, LDL 98, HDL 34. 6. KNOWN CAD - 2005 PCI to RCA in [place], [place]. No complaints of chest pain. 7. PARKINSON'S DISEASE - continue current plan of care. Appreciate Dr. Morgan's assistance. Medications adjusted per Dr. Morgan. 8. HIGH FALLS RISK - Instituted falls prevention protocol. 9. HYPOMAGNESEMIA - resolved. 10. CARDIOMYOPATHY - Undetermined etiology at this time as this is new diagnosis. Stress test December 2015 revealed an EF of 62%. Poor candidate for invasive workup at this time as the patient remains in poor health in general. Medical therapy 11. HYPOKALEMIA - has required continued repletion. This morning potassium is stable DISCHARGE MEDICATIONS INCLUDE: Eliquis 2.5 mg orally twice daily (new) Aspirin 81 mg orally daily Carbidopa/levodopa 25/100 mg - 1 tablet orally 3 times daily (new) Coreg 25 mg orally twice daily (new) Aricept 5 mg orally each evening Proscar 5 mg orally daily Magnesium oxide 400 mg orally twice daily (new) Remeron 30 milligrams orally each evening Singulair 10 mg orally each evening Multivitamin 1 p.o. daily Nitroglycerin sublingual per protocol for chest pain Pamelor 75 mg orally each evening Olanzapine 5 mg orally each evening Pantoprazole 40 mg orally daily Potassium chloride 20 mEq 1 p.o. 3 times daily (new) Flomax 0.4 mg orally daily Atorvastatin 20 mg orally each evening (new) Lasix 40mg orally daily Not on a TU inhibitor due to fear of worsening renal insufficiency, favor a rate controlling agents. Due to - Time spent with patient Time with patient DS: Greater than 30 minutes Diagnosis - Discharge Diagnosis (1) Atrial fibrillation with RVR Status: Resolved (2) Shortness of breath Status: Resolved (3) CHF (congestive heart failure), NYHA class III Status: Chronic (4) Hypertension Status: Chronic (5) Dyslipidemia Status: Chronic (6) Risk for falls Status: Chronic (7) Parkinsons disease Status: Chronic (8) Hypomagnesemia Status: Resolved (9) CAD (coronary artery disease) Status: Chronic (10) Pneumonia Status: Resolved Specialty Discharge - Follow Up or Referrals Follow up with: Bk Morgan MD [Physician] - 1 Month Efren Chávez MD [Physician] - (3 months) Discharge Plan - Discharge Data Disposition: Disch/Xfer to Snf Condition at Discharge: Stable Discharge Diet: heart healthy Activity: as per physical therapy Hygiene: no restrictions Weight Bearing at Discharge: other (Per physical therapy) Driving: other (No driving) Contact your physician if you experience:: fever over 101, Difficulty voiding, Redness or swelling, Nausea/Vomiting, Shortness of breath, Bleeding, pain uncontrolled by pain medications - Discharge Medications New Albuterol/Ipratropium Neb [Duoneb] 3 ml RESP TX RT Q4H PRN PRN Reason: Shortness Of Breath/Wheezing Apixaban [Eliquis] 2.5 mg PO BID tablet Ascorbic Acid Tab [Vitamin C Tab] 1,000 mg PO BID tablet Carvedilol [Coreg] 25 mg PO BID tablet Magnesium Oxide 400 mg PO BID tablet Potassium Chloride Cap/Tab [K Dur] 20 meq PO TID tablet Atorvastatin [Lipitor] 20 mg PO BEDTIME tablet Furosemide Tab [Lasix Tab] 40 mg PO DAILY tablet Carbidopa/Levodopa 25-100 [Sinemet 25-100] 1 tablet PO TID tablet Continue Tamsulosin [Flomax] 0.4 mg PO DAILY Pantoprazole Tab [Protonix Tab] 40 mg PO DAILY Nortriptyline [Pamelor] 75 mg PO BEDTIME Montelukast Tab [Singulair Tab] 10 mg PO BEDTIME Mirtazapine [Remeron] 30 mg PO BEDTIME Finasteride 5 tablet PO DAILY Multivit-Min/FA/Lycopen/Lutein [Centrum Silver Tablet] 1 each PO DAILY Aspirin [Ecotrin] 81 mg PO BEDTIME Nitroglycerin Sl Tab [Nitrostat] 0.4 mg SL Q5M PRN PRN Reason: Chest Pain Donepezil [Aricept] 5 mg PO BEDTIME Naproxen Sodium [Aleve] 440 mg PO BID OLANZapine [Olanzapine] 10 mg PO BEDTIME Acetaminophen/Caffeine [Excedrin Tension Headache Cplt] 1 each PO DAILY PRN PRN Reason: Headache Multivit-Min/FA/Lutein/Zeaxant [Icaps Mv Tablet] 1 each PO DAILY Discontinued Sotalol [Betapace] 80 mg PO BID Primidone [Mysoline] 50 mg PO BEDTIME Topiramate [Topamax] 50 mg PO BID Meloxicam [Mobic] 7.5 mg PO BID - Follow Up or Referral Follow Up: Bk Morgan MD [Physician] - 1 Month Efren Chávez MD [Physician] - (3 months) - Forms/Instructions Instructions: Atrial Fibrillation (ED) Exam - Constitutional Vitals: Period Temp Pulse Resp BP Sys/Spears Pulse Ox Last 24 Hr 97.1 F-98.5 F 90-111 18-20 104-141/60-89 96-100 Exam: General: [Asleep, wakes easily, head of the bed 30. Pleasant and cooperative] HEENT: [PERRL, normocephalic, atraumatic. Mucous membranes moist. No jaundice noted. Conjunctiva moist and clear, sclerae anicteric] Neck: JVD improved overnight, no thyromegaly or lymphadenopathy noted. No carotid bruit appreciated Cardiac: [Irregularly irregular rhythm, controlled rate. ] [No obvious murmur , rub or gallop.] Lungs: [Scant crackles in bases, improve with cough. Continues to require oxygen via nasal cannula. Abdomen: Soft, bowel sounds normoactive. Nontender and nondistended. No abdominal bruit or thrill noted. No masses noted. Musculoskeletal: No fluid collection. Decreased range of motion is noted. Extremities: No clubbing, cyanosis noted. [ No edema noted.] Upper extremity pulses 2+. Lower extremity pulses 2+. Capillary refill less than 3 seconds. Skin: No unusual lesions or rashes. No skin breakdown appreciated. Neuro: Awake, alert. Moves all extremities well without hemiparesis or paralysis. Parkinsonian tremor present. Discharge Results Procedures and tests throughout hospitalization: Pending Orders 03/01/17 04:00 BMP w/ Mg [Basic Metabolic Panel w/Mg] IN AM CBC [Comp Blood Count Auto Diff] IN AM Labs on day of discharge: Labs from last 24 hours 02/28/17 02/28/17 05:31 05:31 WBC 6.9 RBC 3.79 L Hgb 11.4 L Hct 35.1 L MCV 92.6 MCH 30 MCHC 32.5 RDW 14.3 Plt Count 144 MPV 9.7 Neut % (Auto) 65.0 Lymph % (Auto) 20.3 L [place] % (Auto) 11.7 Eos % (Auto) 2.0 Baso % (Auto) 0.6 Neut # (Auto) 4.5 Lymph # (Auto) 1.4 [place] # (Auto) 0.8 Eos # (Auto) 0.1 Baso # (Auto) 0.0 Immature Gran % 0.4 Nucleated RBC % 0.0 Immature Gran # 0.03 Nucleated RBCs # 0.00 Sodium 143 Potassium 4.3 Chloride 107 Carbon Dioxide 29 Anion Gap 11.3 BUN 56 H Creatinine 1.70 H GFR Calculation 39 BUN/Creatinine Ratio 32.00 H Glucose 102 Calculated Osmolality 300.0 Calcium 8.7 Magnesium 2.5 H - Imaging and Cardiology Cardiology Procedure: report reviewed by me Procedure: Chest x-ray: report reviewed by me DS: Provider Date of admission: 02/21/17 18:31 Primary care physician: . No PCP Attending physician on admission: Riki Dsouza MD Consults: 02/22/17 13:27 Consult to Physician [CONS] Routine Comment: ? aspiration pneumonitis - recs? Consulting Provider: Gian Eduardo 02/23/17 06:39 Consult to Physician [CONS] Routine Comment: ? parkinson Consulting Provider: Bk Morgan Person Notified: Cecile Date Notified: 02/23/17 Time Notified: 08:30 02/23/17 09:36 Consult to Case Mgmt/Social Srvs [CONS] Routine Reason for Case Mgmt/Social Srvs: Rehab Consult to Occupational Therapy [CONS] Routine Reason for Occupational Therapy: Evaluate and Treat Consult to Physical Therapy [CONS] Routine Reason for Physical Therapy: Evaluate and Treat 02/26/17 09:03 Consult to Case Mgmt/Social Srvs [CONS] Routine Reason for Case Mgmt/Social Srvs: Discharge Planning Swingbed/SNF/Usp Consult Comment: [facility] [facility] to [facility] if family agrees Discharging clinician: Susan Mosley NP Expected date of discharge: 02/28/17 <Efren Chávez - Last Filed: 02/28/17 15:58> DS: Provider Primary care physician: . No PCP Cardiology addendum Rhythm shows controlled atrial fib. Blood pressure is 130/76. O2 sat is 96% on 2 L. Plan The patient is transferred to [facility] bed Continue Eliquis twice daily Continue other home medications as listed Carbidopa levodopa as directed for significant Parkinson's disease
[2017-02-28] MEDS: DESITIN 4OZ/NYSTATIN 15 GRAM MIXTURE PASTE TOP SCH (15:49)
[2017-02-28 15:51] VITALS: BP 126/68
[2017-02-28] MEDS ORDERED: ATORVASTATIN 20 MG TABLET PO SCH (21:00)
[2017-03-01] MEDS ORDERED: FUROSEMIDE 40 MG TABLET PO SCH (09:00)
== END 2017-02-28 17:07 | disposition swing bed (61) | DRG 291 ==
LOC: EDUNIT# → EDBD → N.ED 16:35 → N.EDINP 18:31 → N.TELES 19:06
PROVIDERS: ADMIT Internal Medicine Cardiovascular Disease; ATTEND Internal Medicine Cardiovascular Disease

== ENCOUNTER 2019-01-20 10:44 | Inpatient (IN) ==
[2019-01-20 12:07] LABS: Basophils % 0.2 % (0.0-0.8); Eosinophils % 0.1 % (0.00-10.9); Hematocrit 34.4 VOL% (42.0-52.0); Hemoglobin 11.2 GM/DL (14.0-18.0); Immature Granulocytes % 1.7 %; Immature Granulocytes Absolute 0.28 #; Lymphocytes # 1.4 10*3/uL (1.4-4.0); Mean Corpuscular HGB Conc 32.6 GM/DL (32-36); Mean Corpuscular Volume 97.5 FL (87-102); Mean Platelet Volume 9.5 FL (9.6-12.0); Monocytes % 7.5 % (1.7-12.7); Neutrophils % 82.5 % (38.7-73.9); Platelet Count 118 T/CUMM (130-400); Red Blood Count 3.53 MC/CUMM (3.8-5.5); Red Cell Distribution Width 14.3 % (9.3-17.3); White Blood Count 16.9 T/CUMM (4-12)
[2019-01-20 12:24] LABS: Albumin 2.8 G/DL (3.4-5.0); Bilirubin,Total 1.2 MG/DL (0.2-1.0); Calcium 8.2 MG/DL (8.5-10.1); Osmolality,Calculated 290.1 MOS/KG (273-304); Total Protein 6.1 G/DL (6.4-8.3)
[2019-01-20] MEDS ORDERED: ACETAMINOPHEN 325 MG TABLET PO PRN (12:26)
[2019-01-20] MEDS ORDERED: ONDANSETRON 4 MG/2 ML VIAL IV PRN (12:26)
[2019-01-20 12:28] LABS: Band Neutrophils 9 % (0-10); Lymphocytes 6 % (20-55); Metamyelocytes 2 %; Segmented Neutrophils 73 % (50-85); Total Cells Counted 100
[2019-01-20 12:29] LABS: Microcytosis Slight; Ovalocytes Slight; Platelet Estimate Adequate
[2019-01-20] MEDS ORDERED: ALBUTEROL 2.5 MG/3 ML NEB RESP TX PRN (12:31)
[2019-01-20] MEDS ORDERED: guaiFENesin 200 MG/10 ML UDCUP PO PRN (12:34)
[2019-01-20] MEDS: ALBUTEROL/IPRATROPIUM 3 ML NEB RESP TX SCH ×2 (12:40→20:02)
[2019-01-20] MEDS: SODIUM CHLORIDE 0.9% 1,000 ML IV SCH (14:07)
[2019-01-20] MEDS: LEVOFLOXACIN INJ 750 MG in PREMIX 1 EACH IV SCH (14:09)
[2019-01-20] MEDS ORDERED: SODIUM CHLORIDE 0.9% 1,000 ML IV SCH (15:30)
[2019-01-20] MEDS: CARVEDILOL 12.5 MG TABLET PO SCH (16:46)
[2019-01-20] MEDS: MIRTAZAPINE 30 MG TABLET PO SCH (16:46)
[2019-01-20] MEDS: APIXABAN 2.5 MG TABLET PO SCH (16:46)
[2019-01-20] MEDS: CARBIDOPA/LEVODOPA 25-250 MG TABLET PO SCH (16:46)
[2019-01-20] MEDS: DONEPEZIL 5 MG TABLET PO SCH (16:46)
[2019-01-20] MEDS: OLANZapine 5 MG TABLET PO SCH (16:46)
[2019-01-20] MEDS: SOTALOL 80 MG TABLET PO SCH (16:46)
[2019-01-20] MEDS: MAGNESIUM OXIDE 400 MG TABLET PO SCH (16:47)
[2019-01-20] MEDS: MONTELUKAST 10 MG TABLET PO SCH (16:47)
[2019-01-20] MEDS: ATORVASTATIN 20 MG TABLET PO SCH (16:47)
[2019-01-20] MEDS: busPIRone 5 MG TABLET PO SCH (16:47)
[2019-01-20] MEDS ORDERED: traMADol 50 MG TABLET PO PRN (23:44)
[2019-01-21] MEDS: ALBUTEROL/IPRATROPIUM 3 ML NEB RESP TX SCH ×4 (01:43→19:32)
[2019-01-21] MEDS: SODIUM CHLORIDE 0.9% 1,000 ML IV SCH ×2 (03:45→17:37)
[2019-01-21 05:24] LABS: Basophils # 0.1 10*3/uL (0.0-0.2); Basophils % 0.4 % (0.0-0.8); Eosinophils % 0.3 % (0.00-10.9); Hematocrit 30.6 VOL% (42.0-52.0); Hemoglobin 9.9 GM/DL (14.0-18.0); Immature Granulocytes % 1.5 %; Immature Granulocytes Absolute 0.17 #; Lymphocytes # 1.2 10*3/uL (1.4-4.0); Lymphocytes % 10.5 % (21.2-54.2); Mean Corpuscular HGB Conc 32.4 GM/DL (32-36); Mean Corpuscular Volume 96.8 FL (87-102); Monocytes % 7.2 % (1.7-12.7); Neutrophils % 80.1 % (38.7-73.9); Platelet Count 101 T/CUMM (130-400); Red Blood Count 3.16 MC/CUMM (3.8-5.5); Red Cell Distribution Width 14.5 % (9.3-17.3); White Blood Count 11.5 T/CUMM (4-12)
[2019-01-21 05:41] LABS: Calcium 7.6 MG/DL (8.5-10.1); Osmolality,Calculated 296.7 MOS/KG (273-304)
[2019-01-21] MEDS: OMEGA 3 ACID ETHYL ESTERS 1 GM CAPSULE PO SCH (08:15)
[2019-01-21] MEDS: MAGNESIUM OXIDE 400 MG TABLET PO SCH ×2 (08:15→16:51)
[2019-01-21] MEDS: DOCUSATE SODIUM 100 MG CAPSULE PO SCH (08:15)
[2019-01-21] MEDS: MULTIVITAMIN (CENTRUM) TABLET PO SCH ×2 (08:15→08:30)
[2019-01-21] MEDS: CARBIDOPA/LEVODOPA 25-250 MG TABLET PO SCH ×3 (08:15→16:52)
[2019-01-21] MEDS: CARVEDILOL 12.5 MG TABLET PO SCH ×2 (08:16→16:52)
[2019-01-21] MEDS: APIXABAN 2.5 MG TABLET PO SCH ×2 (08:16→16:51)
[2019-01-21] MEDS: PANTOPRAZOLE 40 MG TABLET PO SCH (08:16)
[2019-01-21] MEDS: ASCORBIC ACID 500 MG TABLET PO SCH (08:16)
[2019-01-21] MEDS: SOTALOL 80 MG TABLET PO SCH ×2 (08:16→16:51)
[2019-01-21] MEDS: busPIRone 5 MG TABLET PO SCH ×2 (08:16→16:51)
[2019-01-21] MEDS: MONTELUKAST 10 MG TABLET PO SCH (16:51)
[2019-01-21] MEDS: OLANZapine 5 MG TABLET PO SCH (16:51)
[2019-01-21] MEDS: MIRTAZAPINE 30 MG TABLET PO SCH (16:52)
[2019-01-21] MEDS: DONEPEZIL 5 MG TABLET PO SCH (16:52)
[2019-01-21] MEDS: ATORVASTATIN 20 MG TABLET PO SCH (16:52)
[2019-01-21] MEDS: cefTRIAXone 1,000 MG in SYRINGE 1 EACH IV SCH (17:37)
[2019-01-21] MEDS ORDERED: ZALEPLON 5 MG CAPSULE PO PRN (23:46)
[2019-01-22] MEDS: ALBUTEROL/IPRATROPIUM 3 ML NEB RESP TX SCH ×4 (00:29→20:30)
[2019-01-22] MEDS ORDERED: ASPIRIN CHEW 81 MG TABLET PO ONE (03:48)
[2019-01-22] MEDS ORDERED: NITROGLYCERIN SL 0.4 MG TABLET SL ONE (03:52)
[2019-01-22] MEDS ORDERED: ASPIRIN EC 325 MG TABLET PO ONE (03:53)
[2019-01-22] MEDS: NITROGLYCERIN SL 0.4 MG TABLET SL PRN ×3 (03:55→04:05)
[2019-01-22] MEDS ORDERED: MORPHINE 4 MG/1 ML VIAL IV ONE (04:13)
[2019-01-22 04:33] LABS: Basophils % 0.2 % (0.0-0.8); Eosinophils # 0.1 10*3/uL (0.0-0.87); Eosinophils % 1.4 % (0.00-10.9); Hematocrit 33.5 VOL% (42.0-52.0); Immature Granulocytes % 1.5 %; Immature Granulocytes Absolute 0.15 #; Lymphocytes # 0.9 10*3/uL (1.4-4.0); Lymphocytes % 8.7 % (21.2-54.2); Mean Corpuscular HGB Conc 32.8 GM/DL (32-36); Mean Corpuscular Volume 97.4 FL (87-102); Monocytes % 4.9 % (1.7-12.7); Neutrophils % 83.3 % (38.7-73.9); Platelet Count 110 T/CUMM (130-400); Red Blood Count 3.44 MC/CUMM (3.8-5.5); Red Cell Distribution Width 14.4 % (9.3-17.3); White Blood Count 10.2 T/CUMM (4-12)
[2019-01-22 04:39] LABS: Osmolality,Calculated 288.3 MOS/KG (273-304)
[2019-01-22 04:42] LABS: Albumin 2.5 G/DL (3.4-5.0); Bilirubin,Total 0.7 MG/DL (0.2-1.0); Total Protein 6.2 G/DL (6.4-8.3)
[2019-01-22] MEDS: SODIUM CHLORIDE 0.9% 1,000 ML IV SCH ×2 (05:22→22:27)
[2019-01-22] MEDS: SOTALOL 80 MG TABLET PO SCH ×2 (09:00→18:00)
[2019-01-22] MEDS: MAGNESIUM OXIDE 400 MG TABLET PO SCH ×3 (09:00→22:24)
[2019-01-22] MEDS: APIXABAN 2.5 MG TABLET PO SCH ×2 (09:00→18:00)
[2019-01-22] MEDS: OMEGA 3 ACID ETHYL ESTERS 1 GM CAPSULE PO SCH (09:53)
[2019-01-22] MEDS: ASCORBIC ACID 500 MG TABLET PO SCH (09:53)
[2019-01-22] MEDS: busPIRone 5 MG TABLET PO SCH ×2 (09:53→18:00)
[2019-01-22] MEDS: CARVEDILOL 12.5 MG TABLET PO SCH ×2 (09:54→18:00)
[2019-01-22] MEDS: CARBIDOPA/LEVODOPA 25-250 MG TABLET PO SCH ×3 (09:54→18:00)
[2019-01-22] MEDS: PANTOPRAZOLE 40 MG TABLET PO SCH (09:54)
[2019-01-22] MEDS: DOCUSATE SODIUM 100 MG CAPSULE PO SCH (09:54)
[2019-01-22] MEDS: MULTIVITAMIN (CENTRUM) TABLET PO SCH ×2 (09:54)
[2019-01-22] MEDS: LEVOFLOXACIN INJ 750 MG in PREMIX 1 EACH IV SCH (13:37)
[2019-01-22] MEDS: ATORVASTATIN 20 MG TABLET PO SCH (18:00)
[2019-01-22] MEDS: DONEPEZIL 5 MG TABLET PO SCH (18:00)
[2019-01-22] MEDS: OLANZapine 5 MG TABLET PO SCH (18:00)
[2019-01-22] MEDS: MONTELUKAST 10 MG TABLET PO SCH (18:00)
[2019-01-22] MEDS: MIRTAZAPINE 30 MG TABLET PO SCH (18:00)
[2019-01-22] MEDS: cefTRIAXone 1,000 MG in SYRINGE 1 EACH IV SCH (18:08)
[2019-01-23] MEDS: ALBUTEROL/IPRATROPIUM 3 ML NEB RESP TX SCH ×4 (00:49→20:22)
[2019-01-23 05:33] LABS: Calcium 8.2 MG/DL (8.5-10.1)
[2019-01-23] MEDS: SOTALOL 80 MG TABLET PO SCH ×2 (09:36→17:21)
[2019-01-23] MEDS: busPIRone 5 MG TABLET PO SCH ×2 (09:36→17:21)
[2019-01-23] MEDS: MULTIVITAMIN (CENTRUM) TABLET PO SCH ×2 (09:37→09:38)
[2019-01-23] MEDS: DOCUSATE SODIUM 100 MG CAPSULE PO SCH (09:37)
[2019-01-23] MEDS: OMEGA 3 ACID ETHYL ESTERS 1 GM CAPSULE PO SCH (09:37)
[2019-01-23] MEDS: CARVEDILOL 12.5 MG TABLET PO SCH ×2 (09:37→17:22)
[2019-01-23] MEDS: CARBIDOPA/LEVODOPA 25-250 MG TABLET PO SCH ×3 (09:38→17:23)
[2019-01-23] MEDS: MAGNESIUM OXIDE 400 MG TABLET PO SCH ×3 (09:38→20:14)
[2019-01-23] MEDS: PANTOPRAZOLE 40 MG TABLET PO SCH (09:38)
[2019-01-23] MEDS: ASCORBIC ACID 500 MG TABLET PO SCH (09:38)
[2019-01-23] MEDS: APIXABAN 2.5 MG TABLET PO SCH ×2 (10:05→17:22)
[2019-01-23] MEDS ORDERED: SODIUM CHLORIDE 0.45% 1,000 ML IV SCH (12:30)
[2019-01-23] MEDS: DONEPEZIL 5 MG TABLET PO SCH (17:21)
[2019-01-23] MEDS: MIRTAZAPINE 30 MG TABLET PO SCH (17:22)
[2019-01-23] MEDS: ATORVASTATIN 20 MG TABLET PO SCH (17:22)
[2019-01-23] MEDS: MONTELUKAST 10 MG TABLET PO SCH (17:23)
[2019-01-23] MEDS: cefTRIAXone 1,000 MG in SYRINGE 1 EACH IV SCH (17:23)
[2019-01-23] MEDS: OLANZapine 5 MG TABLET PO SCH (17:23)
[2019-01-23] MEDS: SODIUM CHLORIDE 0.9% 1,000 ML IV SCH (22:53)
[2019-01-24] MEDS: ALBUTEROL/IPRATROPIUM 3 ML NEB RESP TX SCH ×3 (01:17→12:26)
[2019-01-24 07:18] LABS: Calcium 8.1 MG/DL (8.5-10.1); Osmolality,Calculated 290.8 MOS/KG (273-304)
[2019-01-24] MEDS: SOTALOL 80 MG TABLET PO SCH (09:28)
[2019-01-24] MEDS: MULTIVITAMIN (CENTRUM) TABLET PO SCH ×2 (09:29→09:31)
[2019-01-24] MEDS: OMEGA 3 ACID ETHYL ESTERS 1 GM CAPSULE PO SCH (09:29)
[2019-01-24] MEDS: busPIRone 5 MG TABLET PO SCH (09:29)
[2019-01-24] MEDS: APIXABAN 2.5 MG TABLET PO SCH (09:29)
[2019-01-24] MEDS: DOCUSATE SODIUM 100 MG CAPSULE PO SCH (09:29)
[2019-01-24] MEDS: CARVEDILOL 12.5 MG TABLET PO SCH (09:29)
[2019-01-24] MEDS: PANTOPRAZOLE 40 MG TABLET PO SCH (09:30)
[2019-01-24] MEDS: ASCORBIC ACID 500 MG TABLET PO SCH (09:30)
[2019-01-24] MEDS: CARBIDOPA/LEVODOPA 25-250 MG TABLET PO SCH ×2 (09:30→12:19)
[2019-01-24] MEDS: MAGNESIUM OXIDE 400 MG TABLET PO SCH ×2 (09:30→15:48)
[2019-01-24] MEDS: LEVOFLOXACIN INJ 750 MG in PREMIX 1 EACH IV SCH (14:19)
[2019-01-24 16:05] VITALS: BP 152/75
== END 2019-01-24 16:29 | disposition home health service (06) | DRG 871 ==
LOC: EDBD → EDUNIT# → N.EDINP 10:44 → N.ED 10:44 → SUATTDRO 12:26 → N.3E 12:49 → SUATTDRO 01-21 14:58
PROVIDERS: ADMIT Hospitalist

== ENCOUNTER 2019-08-02 11:09 | Inpatient (IN) ==
[2019-08-02] MEDS ORDERED: SODIUM CHLORIDE 0.9% 1,000 ML IV STA ×2 (11:36→12:16)
[2019-08-02 11:44] LABS: Basophils % 0.5 % (0.0-0.8); Eosinophils # 0.2 10*3/uL (0.0-0.87); Eosinophils % 2.6 % (0.00-10.9); Hematocrit 23.9 VOL% (42.0-52.0); Hemoglobin 7.9 GM/DL (14.0-18.0); Immature Granulocytes % 0.3 %; Immature Granulocytes Absolute 0.02 #; Lymphocytes # 1.3 10*3/uL (1.4-4.0); Mean Corpuscular HGB Conc 33.1 GM/DL (32-36); Mean Corpuscular Volume 99.2 FL (87-102); Mean Platelet Volume 9.8 FL (9.6-12.0); Monocytes % 4.8 % (1.7-12.7); Neutrophils % 70.8 % (38.7-73.9); Platelet Count 126 T/CUMM (130-400); Red Blood Count 2.41 MC/CUMM (3.8-5.5); Red Cell Distribution Width 16.1 % (9.3-17.3); White Blood Count 6.1 T/CUMM (4-12)
[2019-08-02 12:07] LABS: Alanine Aminotransferase < 9 U/L (16-61); Albumin 2.4 G/DL (3.4-5.0); Alkaline Phosphatase 57 U/L (45-117); Aspartate Amino Transferase 20 U/L (0-37); Blood Urea Nitrogen 59 MG/DL (7-18); Calcium 7.9 MG/DL (8.5-10.1); Estimated Glom Filtration Rate 50 ML/MIN; Glucose 132 MG/DL (74-106); Osmolality,Calculated 304.8 MOS/KG (273-304); Total Protein 5.1 G/DL (6.4-8.3)
[2019-08-02] MEDS ORDERED: diphenhydrAMINE CAP 25 MG CAPSULE PO STA (12:57)
[2019-08-02] MEDS ORDERED: SODIUM CHLORIDE 0.9% 1,000 ML IV PRN (12:57)
[2019-08-02] MEDS ORDERED: ACETAMINOPHEN 325 MG TABLET PO SCH (13:00)
[2019-08-02 13:07] LABS: Apearance,Urine CLEAR (Clear); Bilirubin,Urine Negative (Negative); Blood, Urine Moderate mg/dL (Negative); Glucose,Urine (UA) Negative (Negative); Hyaline Casts,Urine 1 /LPF (0-3); Ketones,Urine 5 mg/dL (Negative); Mucus,Urine Occasional /LPF (Occasional); Nitrite,Urine Negative (Negative); Protein,Urine Negative; RBC,Urine 33 /HPF (0-4); Urine Color Yellow (Yellow); Urine Specific Gravity 1.017 (1.001-1.035); Urine Urobilinogen < 2.0 EU/DL (0.2-1.0); WBC,Urine <1 /HPF (0-6)
[2019-08-02] MEDS ORDERED: ALBUTEROL 2.5 MG/3 ML NEB RESP TX PRN (13:22)
[2019-08-02] MEDS ORDERED: NOREPINEPHRINE 8 MG in SODIUM CHLORIDE 0.9% 242 ML IV PRN (13:22)
[2019-08-02] MEDS ORDERED: ONDANSETRON 4 MG/2 ML VIAL IV PRN (13:22)
[2019-08-02] MEDS ORDERED: MAGNESIUM SULF RIDER 4 GM in PREMIX 1 EACH IV PRN (13:26)
[2019-08-02] MEDS ORDERED: POTASSIUM CHLORIDE RIDER 10 MEQ in PREMIX 1 EACH IV PRN (13:26)
[2019-08-02] MEDS ORDERED: MAGNESIUM SULF RIDER 2 GM in PREMIX 1 EACH IV PRN (13:26)
[2019-08-02] MEDS ORDERED: SODIUM CHLORIDE 0.9% 2,350 ML IV ONE (13:26)
[2019-08-02 14:25] LABS: ABG Base Excess -4.7 MMOL/L (-2.5-2.5); ABG HCO3 20.5 MMOL/L (20-26); ABG Oxygen Saturation 99.3 % (95-100); ABG PCO2 34.2 MM HG (35-48); ABG PH 7.374 (7.35-7.45); ABG TCO2 18.9 MMOL/L (23-27); Allen Test Positive
[2019-08-02] MEDS: PIPERACILLIN/TAZOBACTAM 3,375 MG in SODIUM CHLORIDE 0.9% 100 ML IV SCH ×2 (14:47→21:07)
[2019-08-02 15:38] LABS: INR 1.1; PT Patient Result 12.1 SECS (9.6-12.2)
[2019-08-02 15:42] LABS: % Iron Saturation 41.6 % (18-50); Ferritin 37.8 ng/ml (26-388)
[2019-08-02 15:44] LABS: Troponin I < 0.015 NG/ML (0.00-0.045)
[2019-08-02] MEDS: PANTOPRAZOLE 40 MG VIAL IV SCH (16:47)
[2019-08-02] MEDS: SODIUM CHLORIDE 0.9% 1,000 ML IV SCH (16:47)
[2019-08-02] MEDS: carvediloL 12.5 MG TABLET PO SCH (16:47)
[2019-08-02 17:20] LABS: Folate > 24.0 NG/ML (5.4-24.0); Vitamin B12 258 PG/ML (211-911)
[2019-08-02] MEDS: CARBIDOPA/LEVODOPA 25-250 MG TABLET PO SCH (18:28)
[2019-08-02] MEDS: VANCOMYCIN INJ 1,250 MG in SODIUM CHLORIDE 0.9% 250 ML IV SCH (18:28)
[2019-08-02] MEDS: ALBUTEROL/IPRATROPIUM 3 ML NEB RESP TX SCH (20:32)
[2019-08-02] MEDS: BENZONATATE 100 MG CAPSULE PO SCH (21:07)
[2019-08-03] MEDS: SODIUM CHLORIDE 0.9% 1,000 ML IV SCH ×3 (00:10→12:57)
[2019-08-03] MEDS: ALBUTEROL/IPRATROPIUM 3 ML NEB RESP TX SCH ×4 (00:34→19:40)
[2019-08-03 04:43] LABS: Basophils % 0.5 % (0.0-0.8); Eosinophils # 0.3 10*3/uL (0.0-0.87); Eosinophils % 4.1 % (0.00-10.9); Hematocrit 24.9 VOL% (42.0-52.0); Hemoglobin 8.4 GM/DL (14.0-18.0); Immature Granulocytes % 0.7 %; Immature Granulocytes Absolute 0.05 #; Lymphocytes # 1.8 10*3/uL (1.4-4.0); Lymphocytes % 24.6 % (21.2-54.2); Mean Corpuscular HGB Conc 33.7 GM/DL (32-36); Mean Corpuscular Volume 95.8 FL (87-102); Mean Platelet Volume 10.1 FL (9.6-12.0); Monocytes % 7.6 % (1.7-12.7); Neutrophils % 62.5 % (38.7-73.9); Platelet Count 111 T/CUMM (130-400); Red Cell Distribution Width 16.5 % (9.3-17.3); White Blood Count 7.4 T/CUMM (4-12)
[2019-08-03 05:03] LABS: Albumin 2.1 G/DL (3.4-5.0); Bilirubin,Total 1.1 MG/DL (0.2-1.0); Calcium 7.2 MG/DL (8.5-10.1); Osmolality,Calculated 300.6 MOS/KG (273-304); Total Protein 4.4 G/DL (6.4-8.3)
[2019-08-03 05:04] LABS: CKMB % 13.6 %
[2019-08-03 05:08] LABS: Troponin I 2.56 NG/ML (0.00-0.045)
[2019-08-03] MEDS: PIPERACILLIN/TAZOBACTAM 3,375 MG in SODIUM CHLORIDE 0.9% 100 ML IV SCH ×4 (06:04→20:41)
[2019-08-03] MEDS ORDERED: MAGNESIUM SULF RIDER 4 GM in PREMIX 1 EACH IV ONE (07:17)
[2019-08-03] MEDS ORDERED: CALCIUM GLUCONATE 2,000 MG in SODIUM CHLORIDE 0.9% 100 ML IV ONE (08:00)
[2019-08-03] MEDS: MULTIVITAMIN (CENTRUM) TABLET PO SCH (09:11)
[2019-08-03] MEDS: MULTIVITAMIN (OCUVITE) TABLET PO SCH (09:11)
[2019-08-03] MEDS: carvediloL 12.5 MG TABLET PO SCH ×2 (09:11→17:02)
[2019-08-03] MEDS: CARBIDOPA/LEVODOPA 25-250 MG TABLET PO SCH ×3 (09:11→17:02)
[2019-08-03] MEDS: BENZONATATE 100 MG CAPSULE PO SCH ×3 (09:11→20:36)
[2019-08-03] MEDS: FINASTERIDE 5 MG TABLET PO SCH (09:11)
[2019-08-03] MEDS: OMEGA 3 ACID ETHYL ESTERS 1 GM CAPSULE PO SCH (09:11)
[2019-08-03] MEDS: ATORVASTATIN 20 MG TABLET PO SCH (09:11)
[2019-08-03] MEDS: PANTOPRAZOLE 40 MG VIAL IV SCH (15:06)
[2019-08-03] MEDS: VANCOMYCIN INJ 1,250 MG in SODIUM CHLORIDE 0.9% 250 ML IV SCH (17:02)
[2019-08-04] MEDS: ALBUTEROL/IPRATROPIUM 3 ML NEB RESP TX SCH ×4 (01:34→19:02)
[2019-08-04] MEDS: SODIUM CHLORIDE 0.9% 1,000 ML IV SCH (04:03)
[2019-08-04] MEDS: PIPERACILLIN/TAZOBACTAM 3,375 MG in SODIUM CHLORIDE 0.9% 100 ML IV SCH (04:30)
[2019-08-04 06:31] LABS: Basophils % 0.4 % (0.0-0.8); Eosinophils # 0.2 10*3/uL (0.0-0.87); Eosinophils % 2.1 % (0.00-10.9); Immature Granulocytes % 0.4 %; Immature Granulocytes Absolute 0.04 #; Lymphocytes # 1.5 10*3/uL (1.4-4.0); Lymphocytes % 14.4 % (21.2-54.2); Mean Corpuscular HGB Conc 33.3 GM/DL (32-36); Mean Corpuscular Volume 96.8 FL (87-102); Mean Platelet Volume 10.1 FL (9.6-12.0); Monocytes % 6.5 % (1.7-12.7); Neutrophils % 76.2 % (38.7-73.9); Platelet Count 138 T/CUMM (130-400); Red Blood Count 2.79 MC/CUMM (3.8-5.5); Red Cell Distribution Width 16.9 % (9.3-17.3)
[2019-08-04 06:56] LABS: Albumin 2.1 G/DL (3.4-5.0); Bilirubin,Total 0.8 MG/DL (0.2-1.0); Calcium 7.5 MG/DL (8.5-10.1); Total Protein 5.3 G/DL (6.4-8.3)
[2019-08-04] MEDS: FINASTERIDE 5 MG TABLET PO SCH (08:32)
[2019-08-04] MEDS: CARBIDOPA/LEVODOPA 25-250 MG TABLET PO SCH ×3 (08:32→16:57)
[2019-08-04] MEDS: MULTIVITAMIN (CENTRUM) TABLET PO SCH (08:32)
[2019-08-04] MEDS: ATORVASTATIN 20 MG TABLET PO SCH (08:32)
[2019-08-04] MEDS: MULTIVITAMIN (OCUVITE) TABLET PO SCH (08:32)
[2019-08-04] MEDS: BENZONATATE 100 MG CAPSULE PO SCH ×3 (08:32→20:23)
[2019-08-04] MEDS: OMEGA 3 ACID ETHYL ESTERS 1 GM CAPSULE PO SCH (08:32)
[2019-08-04] MEDS: carvediloL 12.5 MG TABLET PO SCH ×2 (08:32→16:57)
[2019-08-04] MEDS ORDERED: LEVOFLOXACIN INJ 750 MG in PREMIX 1 EACH IV SCH (13:00)
[2019-08-04] MEDS: PANTOPRAZOLE 40 MG VIAL IV SCH (15:00)
[2019-08-05] MEDS: ALBUTEROL/IPRATROPIUM 3 ML NEB RESP TX SCH ×4 (00:40→19:20)
[2019-08-05] MEDS: SODIUM CHLORIDE 0.9% 1,000 ML IV SCH (05:15)
[2019-08-05 07:24] LABS: Basophils % 0.4 % (0.0-0.8); Eosinophils # 0.2 10*3/uL (0.0-0.87); Eosinophils % 2.7 % (0.00-10.9); Hematocrit 32.7 VOL% (42.0-52.0); Hemoglobin 10.3 GM/DL (14.0-18.0); Immature Granulocytes % 0.4 %; Immature Granulocytes Absolute 0.03 #; Lymphocytes % 11.9 % (21.2-54.2); Mean Corpuscular HGB Conc 31.5 GM/DL (32-36); Mean Corpuscular Volume 101.6 FL (87-102); Mean Platelet Volume 10.3 FL (9.6-12.0); Monocytes % 7.6 % (1.7-12.7); Platelet Count 140 T/CUMM (130-400); Red Blood Count 3.22 MC/CUMM (3.8-5.5); Red Cell Distribution Width 17.2 % (9.3-17.3); White Blood Count 8.6 T/CUMM (4-12)
[2019-08-05 07:32] LABS: Albumin 2.3 G/DL (3.4-5.0); Calcium 7.7 MG/DL (8.5-10.1); Osmolality,Calculated 291.7 MOS/KG (273-304)
[2019-08-05] MEDS ORDERED: ASPIRIN CHEW 81 MG TABLET PO SCH (09:00)
[2019-08-05] MEDS: FINASTERIDE 5 MG TABLET PO SCH (09:18)
[2019-08-05] MEDS: MULTIVITAMIN (OCUVITE) TABLET PO SCH (09:18)
[2019-08-05] MEDS: MULTIVITAMIN (CENTRUM) TABLET PO SCH (09:18)
[2019-08-05] MEDS: carvediloL 12.5 MG TABLET PO SCH ×2 (09:18→16:36)
[2019-08-05] MEDS: BENZONATATE 100 MG CAPSULE PO SCH ×3 (09:18→20:53)
[2019-08-05] MEDS: OMEGA 3 ACID ETHYL ESTERS 1 GM CAPSULE PO SCH (09:18)
[2019-08-05] MEDS: CARBIDOPA/LEVODOPA 25-250 MG TABLET PO SCH ×3 (09:18→16:36)
[2019-08-05] MEDS: ATORVASTATIN 20 MG TABLET PO SCH (09:18)
[2019-08-05] MEDS: METOPROLOL TARTRATE 5 MG/5 ML VIAL IV SCH ×3 (11:10→11:20)
[2019-08-05] MEDS ORDERED: FUROSEMIDE 40 MG/4 ML VIAL IV ONE (12:04)
[2019-08-05] MEDS: SOTALOL 80 MG TABLET PO SCH (16:35)
[2019-08-05] MEDS: ASCORBIC ACID 500 MG TABLET PO SCH ×2 (16:36→20:53)
[2019-08-05] MEDS: FUROSEMIDE 40 MG/4 ML VIAL IV SCH (16:51)
[2019-08-05] MEDS: PANTOPRAZOLE 40 MG VIAL IV SCH (16:51)
[2019-08-06] MEDS: ALBUTEROL/IPRATROPIUM 3 ML NEB RESP TX SCH ×4 (00:40→19:34)
[2019-08-06 06:24] LABS: Basophils % 0.4 % (0.0-0.8); Eosinophils # 0.3 10*3/uL (0.0-0.87); Eosinophils % 3.9 % (0.00-10.9); Hematocrit 27.1 VOL% (42.0-52.0); Hemoglobin 8.9 GM/DL (14.0-18.0); Immature Granulocytes % 0.3 %; Immature Granulocytes Absolute 0.02 #; Lymphocytes # 1.2 10*3/uL (1.4-4.0); Mean Corpuscular HGB Conc 32.8 GM/DL (32-36); Mean Corpuscular Volume 97.1 FL (87-102); Monocytes % 9.6 % (1.7-12.7); Neutrophils % 69.8 % (38.7-73.9); Platelet Count 147 T/CUMM (130-400); Red Blood Count 2.79 MC/CUMM (3.8-5.5); Red Cell Distribution Width 17.1 % (9.3-17.3); White Blood Count 7.4 T/CUMM (4-12)
[2019-08-06 06:46] LABS: Albumin 2.2 G/DL (3.4-5.0); Bilirubin,Total 1.7 MG/DL (0.2-1.0); Calcium 7.7 MG/DL (8.5-10.1); Osmolality,Calculated 287.1 MOS/KG (273-304); Total Protein 5.7 G/DL (6.4-8.3)
[2019-08-06] MEDS: MULTIVITAMIN (OCUVITE) TABLET PO SCH (09:52)
[2019-08-06] MEDS: SOTALOL 80 MG TABLET PO SCH ×2 (09:52→18:14)
[2019-08-06] MEDS: ASCORBIC ACID 500 MG TABLET PO SCH ×2 (09:53→20:25)
[2019-08-06] MEDS: OMEGA 3 ACID ETHYL ESTERS 1 GM CAPSULE PO SCH (09:53)
[2019-08-06] MEDS: CARBIDOPA/LEVODOPA 25-250 MG TABLET PO SCH ×3 (09:53→16:51)
[2019-08-06] MEDS: MULTIVITAMIN (CENTRUM) TABLET PO SCH (09:53)
[2019-08-06] MEDS: FUROSEMIDE 40 MG/4 ML VIAL IV SCH (09:53)
[2019-08-06] MEDS: carvediloL 12.5 MG TABLET PO SCH ×2 (09:53→16:51)
[2019-08-06] MEDS: BENZONATATE 100 MG CAPSULE PO SCH ×3 (09:54→20:25)
[2019-08-06] MEDS: FINASTERIDE 5 MG TABLET PO SCH (09:54)
[2019-08-06] MEDS: LEVOFLOXACIN 750 MG TABLET PO SCH (09:54)
[2019-08-06] MEDS: ATORVASTATIN 20 MG TABLET PO SCH (09:54)
[2019-08-06] MEDS ORDERED: POTASSIUM CHLORIDE 20 MEQ TABLET PO ONE (14:08)
[2019-08-06] MEDS ORDERED: MAGNESIUM SULF RIDER 2 GM in PREMIX 1 EACH IV ONE (14:09)
[2019-08-06] MEDS: PANTOPRAZOLE 40 MG VIAL IV SCH (14:36)
[2019-08-06] MEDS ORDERED: FUROSEMIDE 40 MG TABLET PO SCH (16:00)
[2019-08-07] MEDS: ALBUTEROL/IPRATROPIUM 3 ML NEB RESP TX SCH ×4 (00:07→19:10)
[2019-08-07 05:59] LABS: Basophils # 0.1 10*3/uL (0.0-0.2); Basophils % 0.7 % (0.0-0.8); Eosinophils # 0.5 10*3/uL (0.0-0.87); Eosinophils % 6.7 % (0.00-10.9); Hematocrit 28.8 VOL% (42.0-52.0); Hemoglobin 9.5 GM/DL (14.0-18.0); Immature Granulocytes % 0.4 %; Immature Granulocytes Absolute 0.03 #; Lymphocytes # 1.3 10*3/uL (1.4-4.0); Mean Corpuscular Volume 98.3 FL (87-102); Mean Platelet Volume 10.4 FL (9.6-12.0); Monocytes % 10.3 % (1.7-12.7); Neutrophils % 63.9 % (38.7-73.9); Platelet Count 166 T/CUMM (130-400); Red Blood Count 2.93 MC/CUMM (3.8-5.5); Red Cell Distribution Width 17.2 % (9.3-17.3); White Blood Count 7.1 T/CUMM (4-12)
[2019-08-07 06:19] LABS: Calcium 7.9 MG/DL (8.5-10.1); Osmolality,Calculated 297.6 MOS/KG (273-304)
[2019-08-07] MEDS ORDERED: LACTATED RINGERS 1,000 ML IV SCH (08:00)
[2019-08-07] MEDS ORDERED: ETOMIDATE 20 MG/10 ML VIAL IV ONE (09:00)
[2019-08-07] MEDS ORDERED: LIDOCAINE 100 MG/5 ML SYRINGE ONE (09:00)
[2019-08-07] MEDS ORDERED: PROPOFOL 200 MG/20 ML VIAL IV ONE (09:00)
[2019-08-07] MEDS ORDERED: BISACODYL 5 MG TABLET PO ONE (12:00)
[2019-08-07] MEDS: CARBIDOPA/LEVODOPA 25-250 MG TABLET PO SCH ×3 (13:11→17:35)
[2019-08-07] MEDS: SOTALOL 80 MG TABLET PO SCH ×2 (13:12→17:35)
[2019-08-07] MEDS: FINASTERIDE 5 MG TABLET PO SCH (13:12)
[2019-08-07] MEDS: LEVOFLOXACIN 750 MG TABLET PO SCH (13:12)
[2019-08-07] MEDS: ASCORBIC ACID 500 MG TABLET PO SCH ×2 (13:12→21:55)
[2019-08-07] MEDS: FUROSEMIDE 20 MG TABLET PO SCH (13:12)
[2019-08-07] MEDS: BENZONATATE 100 MG CAPSULE PO SCH ×3 (13:12→21:54)
[2019-08-07] MEDS: ATORVASTATIN 20 MG TABLET PO SCH (13:13)
[2019-08-07] MEDS: carvediloL 12.5 MG TABLET PO SCH ×2 (13:13→17:35)
[2019-08-07] MEDS: MULTIVITAMIN (CENTRUM) TABLET PO SCH (13:13)
[2019-08-07] MEDS: MULTIVITAMIN (OCUVITE) TABLET PO SCH (13:13)
[2019-08-07] MEDS: OMEGA 3 ACID ETHYL ESTERS 1 GM CAPSULE PO SCH (13:13)
[2019-08-07] MEDS: PANTOPRAZOLE 40 MG VIAL IV SCH (17:34)
[2019-08-07] MEDS ORDERED: POLYETHYLENE GLYCOL POWDER 255 GM BOTTLE PO ONE (18:00)
[2019-08-08] MEDS: ALBUTEROL/IPRATROPIUM 3 ML NEB RESP TX SCH ×4 (00:17→20:34)
[2019-08-08 06:22] LABS: Basophils % 0.6 % (0.0-0.8); Eosinophils # 0.7 10*3/uL (0.0-0.87); Eosinophils % 10.3 % (0.00-10.9); Hematocrit 25.3 VOL% (42.0-52.0); Immature Granulocytes % 0.7 %; Immature Granulocytes Absolute 0.05 #; Lymphocytes # 1.4 10*3/uL (1.4-4.0); Lymphocytes % 20.8 % (21.2-54.2); Mean Corpuscular HGB Conc 31.6 GM/DL (32-36); Mean Corpuscular Volume 101.6 FL (87-102); Mean Platelet Volume 10.7 FL (9.6-12.0); Monocytes % 10.1 % (1.7-12.7); Neutrophils % 57.5 % (38.7-73.9); Platelet Count 127 T/CUMM (130-400); Red Blood Count 2.49 MC/CUMM (3.8-5.5); Red Cell Distribution Width 16.9 % (9.3-17.3); White Blood Count 6.7 T/CUMM (4-12)
[2019-08-08 06:28] LABS: Calcium 7.6 MG/DL (8.5-10.1); Osmolality,Calculated 293.6 MOS/KG (273-304)
[2019-08-08 06:44] LABS: Eosinophils 9 % (0-10); Lymphocytes 13 % (20-55); Platelet Estimate Decreased; Segmented Neutrophils 73 % (50-85); Total Cells Counted 100
[2019-08-08 06:45] LABS: Hypochromasia Slight; Polychromasia Few
[2019-08-08] MEDS ORDERED: PROPOFOL 200 MG/20 ML VIAL IV ONE (09:30)
[2019-08-08] MEDS ORDERED: LIDOCAINE 1% 5 ML VIAL ONE (09:30)
[2019-08-08] MEDS ORDERED: MAGNESIUM CITRATE 300 ML BOTTLE PO ONE (11:03)
[2019-08-08] MEDS: carvediloL 12.5 MG TABLET PO SCH ×2 (16:51→16:56)
[2019-08-08] MEDS: CARBIDOPA/LEVODOPA 25-250 MG TABLET PO SCH ×2 (16:51→16:57)
[2019-08-08] MEDS: BENZONATATE 100 MG CAPSULE PO SCH ×3 (16:51→21:38)
[2019-08-08] MEDS: SOTALOL 80 MG TABLET PO SCH ×2 (16:51→16:57)
[2019-08-08] MEDS: PANTOPRAZOLE 40 MG VIAL IV SCH (16:52)
[2019-08-08] MEDS: OMEGA 3 ACID ETHYL ESTERS 1 GM CAPSULE PO SCH (16:56)
[2019-08-08] MEDS: FLUCONAZOLE 100 MG TABLET PO SCH (16:56)
[2019-08-08] MEDS: ASCORBIC ACID 500 MG TABLET PO SCH ×2 (16:56→21:38)
[2019-08-08] MEDS: MULTIVITAMIN (CENTRUM) TABLET PO SCH (16:57)
[2019-08-08] MEDS: FINASTERIDE 5 MG TABLET PO SCH (16:57)
[2019-08-08] MEDS: FUROSEMIDE 20 MG TABLET PO SCH (16:57)
[2019-08-08] MEDS: ATORVASTATIN 20 MG TABLET PO SCH (16:57)
[2019-08-08] MEDS: LEVOFLOXACIN 750 MG TABLET PO SCH (16:57)
[2019-08-08] MEDS: MULTIVITAMIN (OCUVITE) TABLET PO SCH (16:58)
[2019-08-09] MEDS: ALBUTEROL/IPRATROPIUM 3 ML NEB RESP TX SCH ×3 (01:25→13:29)
[2019-08-09 05:24] LABS: Basophils % 0.6 % (0.0-0.8); Eosinophils # 0.4 10*3/uL (0.0-0.87); Eosinophils % 7.9 % (0.00-10.9); Hematocrit 26.5 VOL% (42.0-52.0); Hemoglobin 8.8 GM/DL (14.0-18.0); Immature Granulocytes % 0.4 %; Immature Granulocytes Absolute 0.02 #; Lymphocytes # 1.2 10*3/uL (1.4-4.0); Lymphocytes % 22.7 % (21.2-54.2); Mean Corpuscular HGB Conc 33.2 GM/DL (32-36); Mean Corpuscular Volume 96.7 FL (87-102); Mean Platelet Volume 9.7 FL (9.6-12.0); Monocytes % 10.1 % (1.7-12.7); Neutrophils % 58.3 % (38.7-73.9); Platelet Count 175 T/CUMM (130-400); Red Blood Count 2.74 MC/CUMM (3.8-5.5); Red Cell Distribution Width 16.4 % (9.3-17.3); White Blood Count 5.1 T/CUMM (4-12)
[2019-08-09 06:17] LABS: Calcium 7.6 MG/DL (8.5-10.1); Osmolality,Calculated 289.7 MOS/KG (273-304)
[2019-08-09] MEDS: OMEGA 3 ACID ETHYL ESTERS 1 GM CAPSULE PO SCH (09:14)
[2019-08-09] MEDS: SOTALOL 80 MG TABLET PO SCH ×2 (09:15→15:59)
[2019-08-09] MEDS: BENZONATATE 100 MG CAPSULE PO SCH ×2 (09:15→15:47)
[2019-08-09] MEDS: carvediloL 12.5 MG TABLET PO SCH ×2 (09:16→15:59)
[2019-08-09] MEDS: FUROSEMIDE 20 MG TABLET PO SCH (09:16)
[2019-08-09] MEDS: ASCORBIC ACID 500 MG TABLET PO SCH (09:16)
[2019-08-09] MEDS: MULTIVITAMIN (OCUVITE) TABLET PO SCH (09:16)
[2019-08-09] MEDS: FLUCONAZOLE 100 MG TABLET PO SCH (09:16)
[2019-08-09] MEDS: FINASTERIDE 5 MG TABLET PO SCH (09:16)
[2019-08-09] MEDS: ATORVASTATIN 20 MG TABLET PO SCH (09:16)
[2019-08-09] MEDS: LACTATED RINGERS 1,000 ML IV SCH ×2 (09:17→16:00)
[2019-08-09] MEDS: LEVOFLOXACIN 750 MG TABLET PO SCH (09:17)
[2019-08-09] MEDS: MULTIVITAMIN (CENTRUM) TABLET PO SCH (09:17)
[2019-08-09] MEDS: CARBIDOPA/LEVODOPA 25-250 MG TABLET PO SCH ×3 (09:17→16:00)
[2019-08-09] MEDS ORDERED: POTASSIUM CHLORIDE 20 MEQ/15 ML UDCUP PO ONE (11:36)
[2019-08-09 12:33] VITALS: BP 133/63
[2019-08-09] MEDS: PANTOPRAZOLE 40 MG VIAL IV SCH (15:47)
== END 2019-08-09 17:51 | disposition home health service (06) | DRG 811 ==
LOC: EDUNIT# → EDBD → N.ED 11:09 → SUATTDRO 13:22 → N.EDINP 13:22 → N.CC 13:47 → N.TELES 08-03 13:44
PROVIDERS: ADMIT Internal Medicine; ATTEND Internal Medicine

== ENCOUNTER 2019-08-16 14:57 | Inpatient (IN) ==
[2019-08-16] MEDS ORDERED: ACETAMINOPHEN 325 MG TABLET PO PRN (18:11)
[2019-08-16] MEDS: ONDANSETRON 4 MG/2 ML VIAL IV PRN (19:45)
[2019-08-16] MEDS: SODIUM CHLORIDE 0.9% 1,000 ML IV SCH (21:52)
[2019-08-17] MEDS: ALBUTEROL/IPRATROPIUM 3 ML NEB RESP TX PRN (00:45)
[2019-08-17] MEDS: ONDANSETRON 4 MG/2 ML VIAL IV PRN ×2 (00:55→11:34)
[2019-08-17] MEDS ORDERED: FUROSEMIDE 40 MG/4 ML VIAL IV ONE (01:08)
[2019-08-17 08:07] LABS: Basophils % 0.2 % (0.0-0.8); Hematocrit 35.1 VOL% (42.0-52.0); Hematocrit 35.7 VOL% (42.0-52.0); Hemoglobin 11.3 GM/DL (14.0-18.0); Immature Granulocytes % 0.4 %; Immature Granulocytes Absolute 0.05 #; Immature Granulocytes Absolute 0.06 #; Lymphocytes # 0.7 10*3/uL (1.4-4.0); Lymphocytes % 5.1 % (21.2-54.2); Lymphocytes % 5.2 % (21.2-54.2); Mean Corpuscular HGB Conc 31.7 GM/DL (32-36); Mean Corpuscular HGB Conc 32.2 GM/DL (32-36); Mean Corpuscular Volume 97.5 FL (87-102); Mean Corpuscular Volume 98.6 FL (87-102); Mean Platelet Volume 9.3 FL (9.6-12.0); Mean Platelet Volume 9.5 FL (9.6-12.0); Monocytes % 8.3 % (1.7-12.7); Monocytes % 8.9 % (1.7-12.7); Neutrophils % 85.4 % (38.7-73.9); Neutrophils % 85.9 % (38.7-73.9); Platelet Count 290 T/CUMM (130-400); Platelet Count 295 T/CUMM (130-400); Red Blood Count 3.62 MC/CUMM (3.8-5.5); Red Cell Distribution Width 15.9 % (9.3-17.3); White Blood Count 13.6 T/CUMM (4-12)
[2019-08-17 08:25] LABS: ABG Base Excess -3.2 MMOL/L (-2.5-2.5); ABG HCO3 21.8 MMOL/L (20-26); ABG Oxygen Saturation 99.8 % (95-100); ABG PCO2 39.1 MM HG (35-48); ABG PH 7.358 (7.35-7.45); ABG TCO2 19.8 MMOL/L (23-27)
[2019-08-17 08:42] LABS: Albumin 2.8 G/DL (3.4-5.0); Bilirubin,Total 0.9 MG/DL (0.2-1.0); Osmolality,Calculated 289.4 MOS/KG (273-304); Total Protein 7.2 G/DL (6.4-8.3)
[2019-08-17] MEDS ORDERED: FUROSEMIDE 20 MG TABLET PO SCH (09:00)
[2019-08-17] MEDS: TAMSULOSIN 0.4 MG CAPSULE PO SCH (09:20)
[2019-08-17] MEDS: SOTALOL 80 MG TABLET PO SCH ×2 (09:20→17:09)
[2019-08-17] MEDS: ASCORBIC ACID 500 MG TABLET PO SCH ×2 (09:21→20:23)
[2019-08-17] MEDS: ATORVASTATIN 20 MG TABLET PO SCH (09:22)
[2019-08-17] MEDS: carvediloL 12.5 MG TABLET PO SCH ×2 (09:22→17:09)
[2019-08-17] MEDS: busPIRone 5 MG TABLET PO SCH ×2 (09:23→17:09)
[2019-08-17] MEDS: FINASTERIDE 5 MG TABLET PO SCH (09:23)
[2019-08-17] MEDS: PANTOPRAZOLE 40 MG TABLET PO SCH (09:23)
[2019-08-17] MEDS: OMEGA 3 ACID ETHYL ESTERS 1 GM CAPSULE PO SCH (09:23)
[2019-08-17] MEDS: CARBIDOPA/LEVODOPA 25-250 MG TABLET PO SCH ×3 (09:30→17:09)
[2019-08-17] MEDS: PIPERACILLIN/TAZOBACTAM 3,375 MG in SODIUM CHLORIDE 0.9% 100 ML IV SCH ×2 (09:52→17:08)
[2019-08-17] MEDS: SODIUM CHLORIDE 0.9% 1,000 ML IV SCH ×2 (11:09→17:02)
[2019-08-17] MEDS: ASPIRIN CHEW 81 MG TABLET PO SCH (14:07)
[2019-08-17] MEDS ORDERED: VECURONIUM 10 MG VIAL IV ONE ×2 (14:55→15:15)
[2019-08-17 16:52] LABS: Amorphous Crystals,Urine Occasional /HPF (Few); Apearance,Urine Slightly Hazy (Clear); Bacteria,Urine Occasional /HPF (Few); Bilirubin,Urine Negative (Negative); Blood, Urine Negative (Negative); Glucose,Urine (UA) Negative (Negative); Hyaline Casts,Urine 32 /LPF (0-3); Ketones,Urine 5 mg/dL (Negative); Mucus,Urine Occasional /LPF (Occasional); Nitrite,Urine Negative (Negative); Protein,Urine Negative; Squamous Epithelial Cell,Urine Occasional /HPF (0-10); Urine Color Amber (Yellow); Urine Specific Gravity 1.016 (1.001-1.035); Urine Urobilinogen < 2.0 EU/DL (0.2-1.0)
[2019-08-17 17:05] LABS: ABG Base Excess -3.5 MMOL/L (-2.5-2.5); ABG HCO3 21.5 MMOL/L (20-26); ABG PCO2 44.2 MM HG (35-48); ABG PH 7.317 (7.35-7.45); ABG TCO2 20.7 MMOL/L (23-27)
[2019-08-17] MEDS: MIRTAZAPINE 30 MG TABLET PO SCH (17:10)
[2019-08-17] MEDS: NORTRIPTYLINE 25 MG CAPSULE PO SCH (17:10)
[2019-08-18] MEDS: PIPERACILLIN/TAZOBACTAM 3,375 MG in SODIUM CHLORIDE 0.9% 100 ML IV SCH ×4 (00:12→23:32)
[2019-08-18] MEDS ORDERED: SODIUM CHLORIDE 0.9% 500 ML IV ONE (03:41)
[2019-08-18 05:03] LABS: Basophils % 0.1 % (0.0-0.8); Eosinophils % 0.3 % (0.00-10.9); Hematocrit 29.3 VOL% (42.0-52.0); Hemoglobin 9.3 GM/DL (14.0-18.0); Immature Granulocytes % 0.4 %; Immature Granulocytes Absolute 0.03 #; Lymphocytes # 0.7 10*3/uL (1.4-4.0); Lymphocytes % 10.1 % (21.2-54.2); Mean Corpuscular HGB Conc 31.7 GM/DL (32-36); Mean Corpuscular Volume 98.7 FL (87-102); Mean Platelet Volume 9.4 FL (9.6-12.0); Monocytes % 12.3 % (1.7-12.7); Neutrophils % 76.8 % (38.7-73.9); Platelet Count 210 T/CUMM (130-400); Red Blood Count 2.97 MC/CUMM (3.8-5.5); Red Cell Distribution Width 16.3 % (9.3-17.3); White Blood Count 6.8 T/CUMM (4-12)
[2019-08-18 05:27] LABS: Calcium 7.2 MG/DL (8.5-10.1); Osmolality,Calculated 291.7 MOS/KG (273-304); Troponin I 0.043 NG/ML (0.00-0.045)
[2019-08-18] MEDS: FINASTERIDE 5 MG TABLET PO SCH (08:27)
[2019-08-18] MEDS: carvediloL 12.5 MG TABLET PO SCH ×2 (08:27→17:11)
[2019-08-18] MEDS: TAMSULOSIN 0.4 MG CAPSULE PO SCH (08:28)
[2019-08-18] MEDS: ATORVASTATIN 20 MG TABLET PO SCH (08:28)
[2019-08-18] MEDS: ASPIRIN CHEW 81 MG TABLET PO SCH (08:28)
[2019-08-18] MEDS: OMEGA 3 ACID ETHYL ESTERS 1 GM CAPSULE PO SCH (08:29)
[2019-08-18] MEDS: FUROSEMIDE 40 MG TABLET PO SCH (08:29)
[2019-08-18] MEDS: SOTALOL 80 MG TABLET PO SCH ×2 (08:29→17:11)
[2019-08-18] MEDS: busPIRone 5 MG TABLET PO SCH ×2 (08:29→17:11)
[2019-08-18] MEDS: PANTOPRAZOLE 40 MG TABLET PO SCH (08:29)
[2019-08-18] MEDS: CARBIDOPA/LEVODOPA 25-250 MG TABLET PO SCH ×3 (08:32→17:11)
[2019-08-18] MEDS: ASCORBIC ACID 500 MG TABLET PO SCH ×3 (08:33→21:35)
[2019-08-18] MEDS ORDERED: GLUCAGON 1 MG VIAL IM PRN (14:24)
[2019-08-18] MEDS ORDERED: DEXTROSE 10% 250 ML BAG IV PRN (14:24)
[2019-08-18] MEDS: SODIUM CHLORIDE 0.9% 1,000 ML IV SCH (14:27)
[2019-08-18] MEDS: NORTRIPTYLINE 25 MG CAPSULE PO SCH (17:11)
[2019-08-18] MEDS: MIRTAZAPINE 30 MG TABLET PO SCH (17:13)
[2019-08-18] MEDS: ONDANSETRON 4 MG/2 ML VIAL IV PRN (22:15)
[2019-08-19 03:37] LABS: ABG Base Excess -3.8 MMOL/L (-2.5-2.5); ABG HCO3 21.2 MMOL/L (20-26); ABG Oxygen Saturation 98.4 % (95-100); ABG PCO2 33.5 MM HG (35-48); ABG PH 7.394 (7.35-7.45); ABG TCO2 18.8 MMOL/L (23-27); Allen Test Positive; Pt O2 Delivery Device Ventilator
[2019-08-19 07:57] LABS: Basophils % 0.2 % (0.0-0.8); Eosinophils # 0.2 10*3/uL (0.0-0.87); Eosinophils % 2.1 % (0.00-10.9); Immature Granulocytes % 0.5 %; Immature Granulocytes Absolute 0.06 #; Lymphocytes % 8.4 % (21.2-54.2); Mean Corpuscular HGB Conc 32.3 GM/DL (32-36); Mean Corpuscular Volume 96.9 FL (87-102); Mean Platelet Volume 9.8 FL (9.6-12.0); Monocytes % 15.4 % (1.7-12.7); Neutrophils % 73.4 % (38.7-73.9); Platelet Count 196 T/CUMM (130-400); Red Cell Distribution Width 16.2 % (9.3-17.3); White Blood Count 11.6 T/CUMM (4-12)
[2019-08-19 08:10] LABS: Calcium 7.5 MG/DL (8.5-10.1); Osmolality,Calculated 300.3 MOS/KG (273-304)
[2019-08-19] MEDS: FUROSEMIDE 40 MG TABLET PO SCH (09:28)
[2019-08-19] MEDS: FINASTERIDE 5 MG TABLET PO SCH (09:28)
[2019-08-19] MEDS: busPIRone 5 MG TABLET PO SCH ×2 (09:28→17:47)
[2019-08-19] MEDS: CARBIDOPA/LEVODOPA 25-250 MG TABLET PO SCH ×3 (09:28→17:48)
[2019-08-19] MEDS: SOTALOL 80 MG TABLET PO SCH ×2 (09:29→17:47)
[2019-08-19] MEDS: TAMSULOSIN 0.4 MG CAPSULE PO SCH (09:29)
[2019-08-19] MEDS: PANTOPRAZOLE 40 MG TABLET PO SCH (09:29)
[2019-08-19] MEDS: ATORVASTATIN 20 MG TABLET PO SCH (09:29)
[2019-08-19] MEDS: OMEGA 3 ACID ETHYL ESTERS 1 GM CAPSULE PO SCH (09:29)
[2019-08-19] MEDS: ASPIRIN CHEW 81 MG TABLET PO SCH (09:29)
[2019-08-19] MEDS: carvediloL 12.5 MG TABLET PO SCH ×2 (09:29→17:48)
[2019-08-19] MEDS: ASCORBIC ACID 500 MG TABLET PO SCH ×2 (09:30→21:08)
[2019-08-19] MEDS: PIPERACILLIN/TAZOBACTAM 3,375 MG in SODIUM CHLORIDE 0.9% 100 ML IV SCH ×3 (09:41→22:27)
[2019-08-19] MEDS: SODIUM CHLORIDE 0.9% 1,000 ML IV SCH (09:43)
[2019-08-19] MEDS: NORTRIPTYLINE 25 MG CAPSULE PO SCH (17:47)
[2019-08-19] MEDS: MIRTAZAPINE 30 MG TABLET PO SCH (17:48)
[2019-08-20 04:05] LABS: ABG Base Excess -6.1 MMOL/L (-2.5-2.5); ABG HCO3 18.3 MMOL/L (20-26); ABG Oxygen Saturation 97.5 % (95-100); ABG PCO2 31.8 MM HG (35-48); ABG PH 7.378 (7.35-7.45); ABG PO2 110.7 MM HG (80-95); ABG TCO2 19.3 MMOL/L (23-27); Allen Test Positive; Pt O2 Delivery Device Ventilator
[2019-08-20] MEDS: SODIUM CHLORIDE 0.9% 1,000 ML IV SCH ×2 (04:47→06:24)
[2019-08-20 05:18] LABS: Basophils % 0.2 % (0.0-0.8); Eosinophils # 0.3 10*3/uL (0.0-0.87); Eosinophils % 4.9 % (0.00-10.9); Hematocrit 26.2 VOL% (42.0-52.0); Hemoglobin 8.4 GM/DL (14.0-18.0); Immature Granulocytes % 0.4 %; Immature Granulocytes Absolute 0.02 #; Lymphocytes # 0.5 10*3/uL (1.4-4.0); Lymphocytes % 8.7 % (21.2-54.2); Mean Corpuscular HGB Conc 32.1 GM/DL (32-36); Mean Corpuscular Volume 97.8 FL (87-102); Mean Platelet Volume 9.4 FL (9.6-12.0); Monocytes % 10.4 % (1.7-12.7); Neutrophils % 75.4 % (38.7-73.9); Platelet Count 160 T/CUMM (130-400); Red Blood Count 2.68 MC/CUMM (3.8-5.5); White Blood Count 5.3 T/CUMM (4-12)
[2019-08-20 05:31] LABS: Calcium 7.3 MG/DL (8.5-10.1); Osmolality,Calculated 302.8 MOS/KG (273-304)
[2019-08-20] MEDS: PIPERACILLIN/TAZOBACTAM 3,375 MG in SODIUM CHLORIDE 0.9% 100 ML IV SCH ×2 (06:23→15:39)
[2019-08-20] MEDS ORDERED: LACTATED RINGERS 1,000 ML IV SCH (08:00)
[2019-08-20] MEDS: SOTALOL 80 MG TABLET PO SCH ×2 (08:05→11:01)
[2019-08-20] MEDS: CARBIDOPA/LEVODOPA 25-250 MG TABLET PO SCH ×4 (08:06→17:07)
[2019-08-20] MEDS: ASPIRIN CHEW 81 MG TABLET PO SCH ×2 (08:06→11:03)
[2019-08-20] MEDS: FUROSEMIDE 40 MG TABLET PO SCH ×2 (08:06→11:03)
[2019-08-20] MEDS: FINASTERIDE 5 MG TABLET PO SCH ×2 (08:06→11:02)
[2019-08-20] MEDS: busPIRone 5 MG TABLET PO SCH ×3 (08:06→17:07)
[2019-08-20] MEDS: carvediloL 12.5 MG TABLET PO SCH ×3 (08:07→17:07)
[2019-08-20] MEDS: ATORVASTATIN 20 MG TABLET PO SCH ×2 (08:07→11:02)
[2019-08-20] MEDS: TAMSULOSIN 0.4 MG CAPSULE PO SCH ×2 (08:07→11:02)
[2019-08-20] MEDS: OMEGA 3 ACID ETHYL ESTERS 1 GM CAPSULE PO SCH ×2 (08:07→11:02)
[2019-08-20] MEDS: ASCORBIC ACID 500 MG TABLET PO SCH ×3 (08:07→21:30)
[2019-08-20] MEDS: PANTOPRAZOLE 40 MG VIAL IV SCH (08:14)
[2019-08-20] MEDS: MIRTAZAPINE 30 MG TABLET PO SCH (17:07)
[2019-08-20] MEDS: NORTRIPTYLINE 25 MG CAPSULE PO SCH (17:07)
[2019-08-20] MEDS ORDERED: MAGNESIUM SULF RIDER 4 GM in PREMIX 1 EACH IV PRN (20:40)
[2019-08-20] MEDS: POTASSIUM CHLORIDE RIDER 10 MEQ in PREMIX 1 EACH IV PRN ×2 (21:29→22:32)
[2019-08-21] MEDS: SODIUM CHLORIDE 0.9% 1,000 ML IV SCH ×2 (00:10→21:50)
[2019-08-21] MEDS: PIPERACILLIN/TAZOBACTAM 3,375 MG in SODIUM CHLORIDE 0.9% 100 ML IV SCH ×4 (00:10→23:25)
[2019-08-21 04:59] LABS: Allen Test Positive; Pt O2 Delivery Device Ventilator
[2019-08-21 05:00] LABS: ABG Base Excess -7.8 MMOL/L (-2.5-2.5); ABG Oxygen Saturation 99.2 % (95-100); ABG PCO2 32.9 MM HG (35-48); ABG TCO2 16.2 MMOL/L (23-27)
[2019-08-21 05:19] LABS: Basophils % 0.3 % (0.0-0.8); Eosinophils # 0.2 10*3/uL (0.0-0.87); Eosinophils % 2.3 % (0.00-10.9); Hemoglobin 8.9 GM/DL (14.0-18.0); Immature Granulocytes % 0.8 %; Immature Granulocytes Absolute 0.06 #; Lymphocytes % 12.7 % (21.2-54.2); Mean Corpuscular HGB Conc 30.7 GM/DL (32-36); Monocytes % 12.9 % (1.7-12.7); Platelet Count 175 T/CUMM (130-400); Red Cell Distribution Width 16.2 % (9.3-17.3); White Blood Count 7.7 T/CUMM (4-12)
[2019-08-21 05:43] LABS: Calcium 7.7 MG/DL (8.5-10.1); Osmolality,Calculated 303.6 MOS/KG (273-304)
[2019-08-21] MEDS ORDERED: SOTALOL 80 MG TABLET PO SCH (08:00)
[2019-08-21] MEDS: CARBIDOPA/LEVODOPA 25-250 MG TABLET PO SCH ×3 (09:29→16:51)
[2019-08-21] MEDS: busPIRone 5 MG TABLET PO SCH ×2 (09:33→16:52)
[2019-08-21] MEDS: ASCORBIC ACID 500 MG TABLET PO SCH ×2 (09:33→20:42)
[2019-08-21] MEDS: ASPIRIN CHEW 81 MG TABLET PO SCH (09:33)
[2019-08-21] MEDS: FUROSEMIDE 40 MG TABLET PO SCH (09:33)
[2019-08-21] MEDS: TAMSULOSIN 0.4 MG CAPSULE PO SCH (09:33)
[2019-08-21] MEDS: OMEGA 3 ACID ETHYL ESTERS 1 GM CAPSULE PO SCH (09:33)
[2019-08-21] MEDS: ATORVASTATIN 20 MG TABLET PO SCH (09:34)
[2019-08-21] MEDS: carvediloL 12.5 MG TABLET PO SCH ×2 (09:34→16:51)
[2019-08-21] MEDS: FINASTERIDE 5 MG TABLET PO SCH (09:34)
[2019-08-21] MEDS: METOCLOPRAMIDE 10 MG/2 ML VIAL IV SCH ×3 (09:34→20:42)
[2019-08-21] MEDS: PANTOPRAZOLE 40 MG VIAL IV SCH (09:37)
[2019-08-21] MEDS: NORTRIPTYLINE 25 MG CAPSULE PO SCH (16:51)
[2019-08-21] MEDS: MIRTAZAPINE 30 MG TABLET PO SCH (16:51)
[2019-08-22] MEDS: SODIUM CHLORIDE 0.9% 1,000 ML IV SCH ×2 (01:22→16:25)
[2019-08-22] MEDS: METOCLOPRAMIDE 10 MG/2 ML VIAL IV SCH (02:14)
[2019-08-22 04:10] LABS: ABG Base Excess -5.8 MMOL/L (-2.5-2.5); ABG Oxygen Saturation 97.3 % (95-100); ABG PCO2 29.9 MM HG (35-48); ABG PH 7.398 (7.35-7.45); ABG PO2 101.2 MM HG (80-95); ABG TCO2 18.9 MMOL/L (23-27); Allen Test Positive; Pt O2 Delivery Device Ventilator
[2019-08-22 04:31] LABS: Basophils % 0.1 % (0.0-0.8); Eosinophils # 0.1 10*3/uL (0.0-0.87); Eosinophils % 1.6 % (0.00-10.9); Hematocrit 24.4 VOL% (42.0-52.0); Hemoglobin 7.8 GM/DL (14.0-18.0); Immature Granulocytes % 0.9 %; Immature Granulocytes Absolute 0.06 #; Lymphocytes # 0.8 10*3/uL (1.4-4.0); Mean Corpuscular Volume 97.2 FL (87-102); Mean Platelet Volume 9.6 FL (9.6-12.0); Monocytes % 12.5 % (1.7-12.7); Neutrophils % 72.9 % (38.7-73.9); Platelet Count 175 T/CUMM (130-400); Red Blood Count 2.51 MC/CUMM (3.8-5.5); Red Cell Distribution Width 16.2 % (9.3-17.3); White Blood Count 6.9 T/CUMM (4-12)
[2019-08-22 04:34] LABS: Calcium 7.7 MG/DL (8.5-10.1); Osmolality,Calculated 312.9 MOS/KG (273-304)
[2019-08-22 04:46] LABS: Prealbumin 10.5 MG/DL (20-40)
[2019-08-22] MEDS: POTASSIUM CHLORIDE RIDER 10 MEQ in PREMIX 1 EACH IV PRN ×2 (04:54→06:09)
[2019-08-22] MEDS: PIPERACILLIN/TAZOBACTAM 3,375 MG in SODIUM CHLORIDE 0.9% 100 ML IV SCH ×3 (06:21→22:00)
[2019-08-22] MEDS: OMEGA 3 ACID ETHYL ESTERS 1 GM CAPSULE PO SCH (09:42)
[2019-08-22] MEDS: CARBIDOPA/LEVODOPA 25-250 MG TABLET PO SCH ×4 (09:42→16:16)
[2019-08-22] MEDS: FUROSEMIDE 40 MG TABLET PO SCH (09:43)
[2019-08-22] MEDS: FINASTERIDE 5 MG TABLET PO SCH (09:43)
[2019-08-22] MEDS: ASCORBIC ACID 500 MG TABLET PO SCH ×2 (09:43→22:00)
[2019-08-22] MEDS: ASPIRIN CHEW 81 MG TABLET PO SCH (09:43)
[2019-08-22] MEDS: busPIRone 5 MG TABLET PO SCH ×2 (09:43→16:18)
[2019-08-22] MEDS: PANTOPRAZOLE 40 MG VIAL IV SCH (09:44)
[2019-08-22] MEDS: TAMSULOSIN 0.4 MG CAPSULE PO SCH (09:44)
[2019-08-22] MEDS: ATORVASTATIN 20 MG TABLET PO SCH (09:44)
[2019-08-22] MEDS: carvediloL 12.5 MG TABLET PO SCH ×2 (09:44→16:15)
[2019-08-22] MEDS ORDERED: VANCOMYCIN INJ 1,250 MG in SODIUM CHLORIDE 0.9% 250 ML IV SCH (10:00)
[2019-08-22 14:01] LABS: Basophils % 0.4 % (0.0-0.8); Eosinophils # 0.1 10*3/uL (0.0-0.87); Eosinophils % 0.8 % (0.00-10.9); Hematocrit 26.4 VOL% (42.0-52.0); Hemoglobin 8.4 GM/DL (14.0-18.0); Immature Granulocytes % 1.1 %; Immature Granulocytes Absolute 0.09 #; Lymphocytes % 11.4 % (21.2-54.2); Mean Corpuscular HGB Conc 31.8 GM/DL (32-36); Mean Corpuscular Volume 99.2 FL (87-102); Mean Platelet Volume 9.7 FL (9.6-12.0); Monocytes % 10.7 % (1.7-12.7); Neutrophils % 75.6 % (38.7-73.9); Platelet Count 174 T/CUMM (130-400); Red Blood Count 2.66 MC/CUMM (3.8-5.5); Red Cell Distribution Width 16.3 % (9.3-17.3); White Blood Count 8.5 T/CUMM (4-12)
[2019-08-22] MEDS: ALBUTEROL/IPRATROPIUM 3 ML NEB RESP TX SCH ×2 (15:55→20:15)
[2019-08-22] MEDS: NORTRIPTYLINE 25 MG CAPSULE PO SCH (16:15)
[2019-08-22] MEDS: MIRTAZAPINE 30 MG TABLET PO SCH (16:16)
[2019-08-22 20:09] LABS: Hemoglobin 8.1 GM/DL (14.0-18.0)
[2019-08-23] MEDS: ALBUTEROL/IPRATROPIUM 3 ML NEB RESP TX SCH ×4 (00:47→19:13)
[2019-08-23 03:49] LABS: Calcium 7.6 MG/DL (8.5-10.1); Osmolality,Calculated 311.1 MOS/KG (273-304)
[2019-08-23 03:51] LABS: Basophils % 0.2 % (0.0-0.8); Eosinophils # 0.1 10*3/uL (0.0-0.87); Eosinophils % 2.1 % (0.00-10.9); Immature Granulocytes % 0.9 %; Immature Granulocytes Absolute 0.05 #; Lymphocytes # 0.7 10*3/uL (1.4-4.0); Lymphocytes % 12.9 % (21.2-54.2); Mean Corpuscular HGB Conc 31.8 GM/DL (32-36); Mean Corpuscular Volume 96.1 FL (87-102); Mean Platelet Volume 9.7 FL (9.6-12.0); Monocytes % 10.6 % (1.7-12.7); Neutrophils % 73.3 % (38.7-73.9); Platelet Count 179 T/CUMM (130-400); Red Blood Count 2.29 MC/CUMM (3.8-5.5); White Blood Count 5.7 T/CUMM (4-12)
[2019-08-23] MEDS ORDERED: SODIUM CHLORIDE 0.9% 250 ML IV PRN (04:05)
[2019-08-23] MEDS: POTASSIUM CHLORIDE RIDER 10 MEQ in PREMIX 1 EACH IV PRN ×6 (05:20→13:25)
[2019-08-23] MEDS: MAGNESIUM SULF RIDER 2 GM in PREMIX 1 EACH IV PRN (05:22)
[2019-08-23] MEDS: PIPERACILLIN/TAZOBACTAM 3,375 MG in SODIUM CHLORIDE 0.9% 100 ML IV SCH (07:13)
[2019-08-23] MEDS ORDERED: FUROSEMIDE 40 MG/4 ML VIAL IV ONE (07:35)
[2019-08-23] MEDS: TAMSULOSIN 0.4 MG CAPSULE PO SCH (09:00)
[2019-08-23] MEDS: CARBIDOPA/LEVODOPA 25-250 MG TABLET PO SCH ×3 (09:00→17:56)
[2019-08-23] MEDS: carvediloL 12.5 MG TABLET PO SCH ×2 (09:00→17:56)
[2019-08-23] MEDS: FINASTERIDE 5 MG TABLET PO SCH (09:00)
[2019-08-23] MEDS: FUROSEMIDE 40 MG TABLET PO SCH (09:00)
[2019-08-23] MEDS: ASCORBIC ACID 500 MG TABLET PO SCH ×2 (09:00→21:18)
[2019-08-23] MEDS: OMEGA 3 ACID ETHYL ESTERS 1 GM CAPSULE PO SCH (09:00)
[2019-08-23] MEDS: busPIRone 5 MG TABLET PO SCH ×2 (09:00→17:56)
[2019-08-23] MEDS: ATORVASTATIN 20 MG TABLET PO SCH (09:00)
[2019-08-23] MEDS: SOTALOL 80 MG TABLET PO SCH ×2 (09:00→21:18)
[2019-08-23] MEDS: PANTOPRAZOLE 40 MG VIAL IV SCH (09:02)
[2019-08-23] MEDS: DEXTROSE 5% 1,000 ML IV SCH (11:01)
[2019-08-23] MEDS: INSULIN LISPRO 100 UNIT/ML SUBCUT SCH ×3 (11:58→21:17)
[2019-08-23] MEDS: CLINDAMYCIN 300 MG CAPSULE NG SCH ×3 (11:59→23:51)
[2019-08-23 12:31] LABS: Hemoglobin 9.5 GM/DL (14.0-18.0)
[2019-08-23 14:54] LABS: Calcium 7.8 MG/DL (8.5-10.1); Osmolality,Calculated 303.4 MOS/KG (273-304)
[2019-08-23] MEDS: NORTRIPTYLINE 25 MG CAPSULE PO SCH (17:56)
[2019-08-23] MEDS: MIRTAZAPINE 30 MG TABLET PO SCH (17:56)
[2019-08-23 20:10] LABS: Hematocrit 29.2 VOL% (42.0-52.0); Hemoglobin 9.6 GM/DL (14.0-18.0)
[2019-08-24] MEDS: ALBUTEROL/IPRATROPIUM 3 ML NEB RESP TX SCH ×4 (01:15→19:37)
[2019-08-24] MEDS: CLINDAMYCIN 300 MG CAPSULE NG SCH ×3 (06:01→17:30)
[2019-08-24 06:20] LABS: Basophils % 0.3 % (0.0-0.8); Eosinophils # 0.6 10*3/uL (0.0-0.87); Eosinophils % 7.3 % (0.00-10.9); Hematocrit 33.4 VOL% (42.0-52.0); Immature Granulocytes Absolute 0.08 #; Lymphocytes # 1.3 10*3/uL (1.4-4.0); Lymphocytes % 16.8 % (21.2-54.2); Mean Corpuscular HGB Conc 32.9 GM/DL (32-36); Mean Corpuscular Volume 92.3 FL (87-102); Mean Platelet Volume 9.3 FL (9.6-12.0); Monocytes % 9.5 % (1.7-12.7); Neutrophils % 65.1 % (38.7-73.9); Platelet Count 175 T/CUMM (130-400); Red Blood Count 3.62 MC/CUMM (3.8-5.5); Red Cell Distribution Width 16.1 % (9.3-17.3); White Blood Count 7.8 T/CUMM (4-12)
[2019-08-24 06:45] LABS: Calcium 7.7 MG/DL (8.5-10.1); Osmolality,Calculated 304.4 MOS/KG (273-304)
[2019-08-24] MEDS: INSULIN LISPRO 100 UNIT/ML SUBCUT SCH ×3 (09:54→17:30)
[2019-08-24] MEDS: PANTOPRAZOLE 40 MG VIAL IV SCH (09:54)
[2019-08-24] MEDS: SOTALOL 80 MG TABLET PO SCH ×2 (09:55→20:04)
[2019-08-24] MEDS: CARBIDOPA/LEVODOPA 25-250 MG TABLET PO SCH ×3 (09:55→17:29)
[2019-08-24] MEDS: carvediloL 12.5 MG TABLET PO SCH ×2 (09:55→17:28)
[2019-08-24] MEDS: busPIRone 5 MG TABLET PO SCH (09:55)
[2019-08-24] MEDS: FINASTERIDE 5 MG TABLET PO SCH (09:55)
[2019-08-24] MEDS: TAMSULOSIN 0.4 MG CAPSULE PO SCH (09:55)
[2019-08-24] MEDS: ATORVASTATIN 20 MG TABLET PO SCH (09:55)
[2019-08-24] MEDS: ASCORBIC ACID 500 MG TABLET PO SCH ×2 (09:55→20:04)
[2019-08-24] MEDS: OMEGA 3 ACID ETHYL ESTERS 1 GM CAPSULE PO SCH (09:55)
[2019-08-24] MEDS: FUROSEMIDE 40 MG TABLET PO SCH (10:03)
[2019-08-24 11:53] LABS: Hematocrit 30.4 VOL% (42.0-52.0); Hemoglobin 10.1 GM/DL (14.0-18.0)
[2019-08-24] MEDS: POTASSIUM CHLORIDE RIDER 10 MEQ in PREMIX 1 EACH IV PRN ×3 (14:33→18:08)
[2019-08-24] MEDS: DEXTROSE 5% 1,000 ML IV SCH (16:07)
[2019-08-24] MEDS: NORTRIPTYLINE 25 MG CAPSULE PO SCH (16:09)
[2019-08-24] MEDS: MIRTAZAPINE 30 MG TABLET PO SCH (17:29)
[2019-08-25] MEDS: ALBUTEROL/IPRATROPIUM 3 ML NEB RESP TX SCH ×3 (00:01→13:55)
[2019-08-25] MEDS: INSULIN LISPRO 100 UNIT/ML SUBCUT SCH ×5 (00:32→21:40)
[2019-08-25] MEDS: CLINDAMYCIN 300 MG CAPSULE NG SCH ×4 (00:34→17:28)
[2019-08-25] MEDS ORDERED: FUROSEMIDE 40 MG/4 ML VIAL IV ONE ×2 (00:53→09:54)
[2019-08-25 01:30] LABS: Basophils % 0.4 % (0.0-0.8); Eosinophils # 0.5 10*3/uL (0.0-0.87); Eosinophils % 5.1 % (0.00-10.9); Hematocrit 32.9 VOL% (42.0-52.0); Hemoglobin 10.8 GM/DL (14.0-18.0); Immature Granulocytes % 0.9 %; Lymphocytes # 1.2 10*3/uL (1.4-4.0); Lymphocytes % 11.5 % (21.2-54.2); Mean Corpuscular HGB Conc 32.8 GM/DL (32-36); Mean Corpuscular Volume 91.4 FL (87-102); Mean Platelet Volume 9.3 FL (9.6-12.0); Monocytes % 7.6 % (1.7-12.7); Neutrophils % 74.5 % (38.7-73.9); Platelet Count 211 T/CUMM (130-400); Red Cell Distribution Width 15.7 % (9.3-17.3); White Blood Count 10.7 T/CUMM (4-12)
[2019-08-25 01:53] LABS: Troponin I 0.027 NG/ML (0.00-0.045)
[2019-08-25 02:42] LABS: ABG Base Excess 0.2 MMOL/L (-2.5-2.5); ABG HCO3 24.6 MMOL/L (20-26); ABG Oxygen Saturation 99.3 % (95-100); ABG PCO2 34.4 MM HG (35-48); ABG PH 7.448 (7.35-7.45); ABG TCO2 21.2 MMOL/L (23-27); Allen Test Positive; Pt O2 Delivery Device BIPAP
[2019-08-25 06:29] LABS: Basophils # 0.1 10*3/uL (0.0-0.2); Basophils % 0.4 % (0.0-0.8); Eosinophils # 0.4 10*3/uL (0.0-0.87); Eosinophils % 3.6 % (0.00-10.9); Hematocrit 36.9 VOL% (42.0-52.0); Hemoglobin 12.1 GM/DL (14.0-18.0); Immature Granulocytes % 0.9 %; Lymphocytes # 1.6 10*3/uL (1.4-4.0); Lymphocytes % 13.2 % (21.2-54.2); Mean Corpuscular HGB Conc 32.8 GM/DL (32-36); Mean Corpuscular Volume 92.9 FL (87-102); Mean Platelet Volume 9.9 FL (9.6-12.0); Monocytes % 9.8 % (1.7-12.7); Neutrophils % 72.1 % (38.7-73.9); Platelet Count 196 T/CUMM (130-400); Red Blood Count 3.97 MC/CUMM (3.8-5.5); Red Cell Distribution Width 15.6 % (9.3-17.3); White Blood Count 11.7 T/CUMM (4-12)
[2019-08-25 06:40] LABS: Osmolality,Calculated 285.5 MOS/KG (273-304)
[2019-08-25] MEDS: MAGNESIUM SULF RIDER 2 GM in PREMIX 1 EACH IV PRN (06:48)
[2019-08-25] MEDS: FINASTERIDE 5 MG TABLET PO SCH (08:04)
[2019-08-25] MEDS: PANTOPRAZOLE 40 MG VIAL IV SCH (08:04)
[2019-08-25] MEDS: CARBIDOPA/LEVODOPA 25-250 MG TABLET PO SCH ×3 (08:04→17:28)
[2019-08-25] MEDS: SOTALOL 80 MG TABLET PO SCH ×2 (08:04→21:18)
[2019-08-25] MEDS: TAMSULOSIN 0.4 MG CAPSULE PO SCH (08:04)
[2019-08-25] MEDS: carvediloL 12.5 MG TABLET PO SCH ×2 (08:04→21:18)
[2019-08-25] MEDS: ASCORBIC ACID 500 MG TABLET PO SCH ×2 (08:04→21:18)
[2019-08-25] MEDS: OMEGA 3 ACID ETHYL ESTERS 1 GM CAPSULE PO SCH (08:05)
[2019-08-25] MEDS: ATORVASTATIN 20 MG TABLET PO SCH (08:05)
[2019-08-25] MEDS: FUROSEMIDE 40 MG TABLET PO SCH (08:05)
[2019-08-25] MEDS: ALBUTEROL/IPRATROPIUM 3 ML NEB RESP TX PRN (09:38)
[2019-08-25] MEDS ORDERED: carvediloL 12.5 MG TABLET PO ONE (09:53)
[2019-08-25] MEDS ORDERED: AMIODARONE INJ 150 MG in DEXTROSE 5% 100 ML IV ONE (13:07)
[2019-08-25] MEDS ORDERED: LEVALBUTEROL 1.25 MG/3 ML NEB RESP TX PRN (13:18)
[2019-08-25] MEDS ORDERED: SODIUM CHLORIDE 0.9% 500 ML IV ONE (13:30)
[2019-08-25] MEDS: FUROSEMIDE 40 MG/4 ML VIAL IV SCH (15:35)
[2019-08-25] MEDS: MIRTAZAPINE 30 MG TABLET PO SCH (17:28)
[2019-08-25] MEDS: NORTRIPTYLINE 25 MG CAPSULE PO SCH (17:28)
[2019-08-25] MEDS ORDERED: GLUCAGON 1 MG VIAL IM PRN (18:53)
[2019-08-25] MEDS ORDERED: DEXTROSE 50% 25 GM/50 ML VIAL IV PRN (18:53)
[2019-08-25] MEDS ORDERED: carvediloL 25 MG TABLET PO SCH (21:00)
[2019-08-26] MEDS: CLINDAMYCIN 300 MG CAPSULE NG SCH ×4 (00:32→18:20)
[2019-08-26] MEDS ORDERED: GLUCAGON 1 MG VIAL IM PRN (00:49)
[2019-08-26] MEDS ORDERED: DEXTROSE 50% 25 GM/50 ML VIAL IV PRN (00:49)
[2019-08-26] MEDS: INSULIN LISPRO 100 UNIT/ML SUBCUT SCH ×3 (05:30→18:16)
[2019-08-26 06:39] LABS: Basophils % 0.3 % (0.0-0.8); Eosinophils # 0.4 10*3/uL (0.0-0.87); Eosinophils % 4.8 % (0.00-10.9); Hematocrit 29.8 VOL% (42.0-52.0); Hemoglobin 9.7 GM/DL (14.0-18.0); Immature Granulocytes % 0.7 %; Immature Granulocytes Absolute 0.06 #; Lymphocytes # 1.3 10*3/uL (1.4-4.0); Lymphocytes % 14.5 % (21.2-54.2); Mean Corpuscular HGB Conc 32.6 GM/DL (32-36); Mean Corpuscular Volume 92.8 FL (87-102); Mean Platelet Volume 9.9 FL (9.6-12.0); Monocytes % 8.4 % (1.7-12.7); Neutrophils % 71.3 % (38.7-73.9); Platelet Count 175 T/CUMM (130-400); Red Blood Count 3.21 MC/CUMM (3.8-5.5); Red Cell Distribution Width 15.1 % (9.3-17.3); White Blood Count 8.8 T/CUMM (4-12)
[2019-08-26 07:09] LABS: Calcium 7.6 MG/DL (8.5-10.1); Osmolality,Calculated 287.5 MOS/KG (273-304)
[2019-08-26 07:32] LABS: Prealbumin 12.9 MG/DL (20-40)
[2019-08-26] MEDS ORDERED: AMIODARONE INJ 150 MG in DEXTROSE 5% 100 ML IV ONE (08:03)
[2019-08-26] MEDS: OMEGA 3 ACID ETHYL ESTERS 1 GM CAPSULE PO SCH (08:07)
[2019-08-26] MEDS: ASCORBIC ACID 500 MG TABLET PO SCH ×2 (08:07→21:06)
[2019-08-26] MEDS: FUROSEMIDE 40 MG/4 ML VIAL IV SCH ×2 (08:07→16:34)
[2019-08-26] MEDS: CARBIDOPA/LEVODOPA 25-250 MG TABLET PO SCH ×3 (08:07→16:34)
[2019-08-26] MEDS: carvediloL 12.5 MG TABLET PO SCH ×2 (08:08→21:07)
[2019-08-26] MEDS: FINASTERIDE 5 MG TABLET PO SCH (08:08)
[2019-08-26] MEDS: ATORVASTATIN 20 MG TABLET PO SCH (08:08)
[2019-08-26] MEDS: PANTOPRAZOLE 40 MG VIAL IV SCH (08:08)
[2019-08-26] MEDS: TAMSULOSIN 0.4 MG CAPSULE PO SCH (08:08)
[2019-08-26] MEDS ORDERED: AMIODARONE INJ 450 MG in DEXTROSE 5% 241 ML IV SCH (08:30)
[2019-08-26] MEDS: POTASSIUM CHLORIDE RIDER 10 MEQ in PREMIX 1 EACH IV PRN ×2 (09:03→17:16)
[2019-08-26] MEDS ORDERED: METOCLOPRAMIDE 10 MG/2 ML VIAL IV PRN (09:18)
[2019-08-26] MEDS ORDERED: METOCLOPRAMIDE 10 MG/2 ML VIAL IV ONE (10:35)
[2019-08-26] MEDS: POTASSIUM CHLORIDE 10 MEQ TABLET PO SCH ×2 (12:27→21:06)
[2019-08-26 13:25] LABS: Apearance,Urine Slightly Hazy (Clear); Bacteria,Urine Occasional /HPF (Few); Bilirubin,Urine Negative (Negative); Blood, Urine Large mg/dL (Negative); Glucose,Urine (UA) Negative (Negative); Hyaline Casts,Urine 5 /LPF (0-3); Ketones,Urine Negative (Negative); Mucus,Urine Occasional /LPF (Occasional); Nitrite,Urine Negative (Negative); Protein,Urine Negative; RBC,Urine 28 /HPF (0-4); Squamous Epithelial Cell,Urine Occasional /HPF (0-10); Urine Color Yellow (Yellow); Urine Specific Gravity 1.008 (1.001-1.035); Urine Urobilinogen < 2.0 EU/DL (0.2-1.0); WBC,Urine 2 /HPF (0-6)
[2019-08-26] MEDS: NORTRIPTYLINE 25 MG CAPSULE PO SCH (16:34)
[2019-08-26] MEDS: MIRTAZAPINE 30 MG TABLET PO SCH (16:34)
[2019-08-27] MEDS: CLINDAMYCIN 300 MG CAPSULE NG SCH ×4 (00:19→17:12)
[2019-08-27] MEDS: INSULIN LISPRO 100 UNIT/ML SUBCUT SCH ×4 (01:03→20:16)
[2019-08-27 05:48] LABS: Basophils % 0.3 % (0.0-0.8); Eosinophils # 0.3 10*3/uL (0.0-0.87); Eosinophils % 2.8 % (0.00-10.9); Hematocrit 29.5 VOL% (42.0-52.0); Hemoglobin 9.8 GM/DL (14.0-18.0); Immature Granulocytes % 0.6 %; Immature Granulocytes Absolute 0.06 #; Lymphocytes # 1.1 10*3/uL (1.4-4.0); Lymphocytes % 11.8 % (21.2-54.2); Mean Corpuscular HGB Conc 33.2 GM/DL (32-36); Mean Corpuscular Volume 92.5 FL (87-102); Monocytes % 8.8 % (1.7-12.7); Neutrophils % 75.7 % (38.7-73.9); Platelet Count 160 T/CUMM (130-400); Red Blood Count 3.19 MC/CUMM (3.8-5.5); White Blood Count 9.6 T/CUMM (4-12)
[2019-08-27 06:20] LABS: Calcium 7.8 MG/DL (8.5-10.1); Osmolality,Calculated 290.1 MOS/KG (273-304)
[2019-08-27] MEDS: POTASSIUM CHLORIDE 10 MEQ TABLET PO SCH ×2 (08:29→21:39)
[2019-08-27] MEDS: CARBIDOPA/LEVODOPA 25-250 MG TABLET PO SCH ×3 (08:29→16:26)
[2019-08-27] MEDS: POTASSIUM CHLORIDE RIDER 10 MEQ in PREMIX 1 EACH IV PRN ×2 (08:30→10:52)
[2019-08-27] MEDS: TAMSULOSIN 0.4 MG CAPSULE PO SCH (08:30)
[2019-08-27] MEDS: ASCORBIC ACID 500 MG TABLET PO SCH ×2 (08:30→21:39)
[2019-08-27] MEDS: FINASTERIDE 5 MG TABLET PO SCH (08:30)
[2019-08-27] MEDS: ATORVASTATIN 20 MG TABLET PO SCH (08:31)
[2019-08-27] MEDS: carvediloL 12.5 MG TABLET PO SCH ×2 (08:31→21:39)
[2019-08-27] MEDS: FUROSEMIDE 40 MG TABLET PO SCH (08:31)
[2019-08-27] MEDS: OMEGA 3 ACID ETHYL ESTERS 1 GM CAPSULE PO SCH (08:31)
[2019-08-27] MEDS: PANTOPRAZOLE 40 MG VIAL IV SCH (08:31)
[2019-08-27] MEDS: FUROSEMIDE 40 MG/4 ML VIAL IV SCH (09:04)
[2019-08-27] MEDS: MAGNESIUM SULF RIDER 2 GM in PREMIX 1 EACH IV PRN (09:43)
[2019-08-27] MEDS: NORTRIPTYLINE 25 MG CAPSULE PO SCH (16:27)
[2019-08-27] MEDS: MIRTAZAPINE 30 MG TABLET PO SCH (16:27)
[2019-08-28] MEDS: INSULIN LISPRO 100 UNIT/ML SUBCUT SCH ×4 (00:14→18:40)
[2019-08-28] MEDS: CLINDAMYCIN 300 MG CAPSULE NG SCH ×4 (00:23→18:17)
[2019-08-28 05:48] LABS: Basophils % 0.3 % (0.0-0.8); Eosinophils # 0.2 10*3/uL (0.0-0.87); Eosinophils % 1.4 % (0.00-10.9); Hematocrit 34.6 VOL% (42.0-52.0); Hemoglobin 10.7 GM/DL (14.0-18.0); Immature Granulocytes % 0.7 %; Immature Granulocytes Absolute 0.08 #; Lymphocytes % 8.6 % (21.2-54.2); Mean Corpuscular HGB Conc 30.9 GM/DL (32-36); Mean Corpuscular Volume 97.7 FL (87-102); Mean Platelet Volume 10.2 FL (9.6-12.0); Monocytes % 10.5 % (1.7-12.7); Neutrophils % 78.5 % (38.7-73.9); Platelet Count 163 T/CUMM (130-400); Red Blood Count 3.54 MC/CUMM (3.8-5.5); Red Cell Distribution Width 15.2 % (9.3-17.3); White Blood Count 11.3 T/CUMM (4-12)
[2019-08-28 06:10] LABS: Osmolality,Calculated 279.1 MOS/KG (273-304)
[2019-08-28] MEDS: CARBIDOPA/LEVODOPA 25-250 MG TABLET PO SCH ×3 (10:45→18:17)
[2019-08-28] MEDS: ATORVASTATIN 20 MG TABLET PO SCH (10:45)
[2019-08-28] MEDS: OMEGA 3 ACID ETHYL ESTERS 1 GM CAPSULE PO SCH (10:45)
[2019-08-28] MEDS: ASCORBIC ACID 500 MG TABLET PO SCH ×2 (10:45→21:24)
[2019-08-28] MEDS: FINASTERIDE 5 MG TABLET PO SCH (10:46)
[2019-08-28] MEDS: PANTOPRAZOLE 40 MG VIAL IV SCH (10:46)
[2019-08-28] MEDS: carvediloL 12.5 MG TABLET PO SCH ×2 (10:46→21:24)
[2019-08-28] MEDS: POTASSIUM CHLORIDE 10 MEQ TABLET PO SCH ×2 (10:46→21:24)
[2019-08-28] MEDS: FUROSEMIDE 40 MG TABLET PO SCH (10:46)
[2019-08-28] MEDS: TAMSULOSIN 0.4 MG CAPSULE PO SCH (10:46)
[2019-08-28 13:25] LABS: Apearance,Urine Slightly Hazy (Clear); Bacteria,Urine Occasional /HPF (Few); Bilirubin,Urine Negative (Negative); Blood, Urine Small mg/dL (Negative); Glucose,Urine (UA) Negative (Negative); Ketones,Urine Negative (Negative); Nitrite,Urine Negative (Negative); Protein,Urine 30 MG/DL; RBC,Urine 9 /HPF (0-4); Urine Color Yellow (Yellow); Urine Specific Gravity 1.013 (1.001-1.035); Urine Urobilinogen < 2.0 EU/DL (0.2-1.0); WBC,Urine 2 /HPF (0-6)
[2019-08-28] MEDS: MIRTAZAPINE 30 MG TABLET PO SCH (17:12)
[2019-08-28] MEDS: NORTRIPTYLINE 25 MG CAPSULE PO SCH (17:12)
[2019-08-29] MEDS: INSULIN LISPRO 100 UNIT/ML SUBCUT SCH ×5 (00:13→23:55)
[2019-08-29] MEDS: CLINDAMYCIN 300 MG CAPSULE NG SCH ×5 (00:16→23:55)
[2019-08-29 06:44] LABS: Calcium 7.9 MG/DL (8.5-10.1); Osmolality,Calculated 280.7 MOS/KG (273-304)
[2019-08-29] MEDS: CARBIDOPA/LEVODOPA 25-250 MG TABLET PO SCH ×3 (09:47→16:47)
[2019-08-29] MEDS: ASCORBIC ACID 500 MG TABLET PO SCH ×2 (09:47→20:52)
[2019-08-29] MEDS: FUROSEMIDE 40 MG TABLET PO SCH (09:47)
[2019-08-29] MEDS: OMEGA 3 ACID ETHYL ESTERS 1 GM CAPSULE PO SCH (09:47)
[2019-08-29] MEDS: FINASTERIDE 5 MG TABLET PO SCH (09:47)
[2019-08-29] MEDS: TAMSULOSIN 0.4 MG CAPSULE PO SCH (09:47)
[2019-08-29] MEDS: carvediloL 12.5 MG TABLET PO SCH ×2 (09:47→20:53)
[2019-08-29] MEDS: ATORVASTATIN 20 MG TABLET PO SCH (09:47)
[2019-08-29] MEDS: POTASSIUM CHLORIDE 10 MEQ TABLET PO SCH ×2 (09:47→20:53)
[2019-08-29] MEDS: PANTOPRAZOLE 40 MG VIAL IV SCH (09:47)
[2019-08-29] MEDS: MIRTAZAPINE 30 MG TABLET PO SCH (16:47)
[2019-08-29] MEDS: NORTRIPTYLINE 25 MG CAPSULE PO SCH (16:47)
[2019-08-29] MEDS: busPIRone 5 MG TABLET PO PRN (22:50)
[2019-08-30] MEDS: MAGNESIUM SULF RIDER 2 GM in PREMIX 1 EACH IV PRN (04:32)
[2019-08-30 05:41] LABS: Basophils % 0.6 % (0.0-0.8); Eosinophils # 0.3 10*3/uL (0.0-0.87); Eosinophils % 5.9 % (0.00-10.9); Hematocrit 28.1 VOL% (42.0-52.0); Immature Granulocytes % 0.4 %; Immature Granulocytes Absolute 0.02 #; Lymphocytes # 1.2 10*3/uL (1.4-4.0); Lymphocytes % 21.4 % (21.2-54.2); Mean Corpuscular Volume 94.3 FL (87-102); Mean Platelet Volume 9.9 FL (9.6-12.0); Monocytes % 13.1 % (1.7-12.7); Neutrophils % 58.6 % (38.7-73.9); Platelet Count 173 T/CUMM (130-400); Red Blood Count 2.98 MC/CUMM (3.8-5.5); Red Cell Distribution Width 15.1 % (9.3-17.3); White Blood Count 5.4 T/CUMM (4-12)
[2019-08-30] MEDS: CLINDAMYCIN 300 MG CAPSULE NG SCH ×3 (05:48→18:51)
[2019-08-30] MEDS: INSULIN LISPRO 100 UNIT/ML SUBCUT SCH ×3 (06:17→19:18)
[2019-08-30 06:18] LABS: Osmolality,Calculated 288.1 MOS/KG (273-304)
[2019-08-30] MEDS: OMEGA 3 ACID ETHYL ESTERS 1 GM CAPSULE PO SCH (09:19)
[2019-08-30] MEDS: POTASSIUM CHLORIDE 10 MEQ TABLET PO SCH ×2 (09:19→21:28)
[2019-08-30] MEDS: ASCORBIC ACID 500 MG TABLET PO SCH ×2 (09:19→21:27)
[2019-08-30] MEDS: carvediloL 12.5 MG TABLET PO SCH ×2 (09:20→21:27)
[2019-08-30] MEDS: FUROSEMIDE 40 MG TABLET PO SCH (09:20)
[2019-08-30] MEDS: FINASTERIDE 5 MG TABLET PO SCH (09:20)
[2019-08-30] MEDS: TAMSULOSIN 0.4 MG CAPSULE PO SCH (09:23)
[2019-08-30] MEDS: PANTOPRAZOLE 40 MG VIAL IV SCH (09:23)
[2019-08-30] MEDS: CARBIDOPA/LEVODOPA 25-250 MG TABLET PO SCH ×3 (09:24→18:51)
[2019-08-30] MEDS: ATORVASTATIN 20 MG TABLET PO SCH (09:31)
[2019-08-30] MEDS: NORTRIPTYLINE 25 MG CAPSULE PO SCH (18:51)
[2019-08-30] MEDS: MIRTAZAPINE 30 MG TABLET PO SCH (18:51)
[2019-08-31] MEDS: INSULIN LISPRO 100 UNIT/ML SUBCUT SCH ×5 (00:12→17:54)
[2019-08-31] MEDS: CLINDAMYCIN 300 MG CAPSULE NG SCH ×4 (00:25→17:25)
[2019-08-31] MEDS: busPIRone 5 MG TABLET PO PRN (00:28)
[2019-08-31] MEDS: ASCORBIC ACID 500 MG TABLET PO SCH ×2 (09:14→22:00)
[2019-08-31] MEDS: CARBIDOPA/LEVODOPA 25-250 MG TABLET PO SCH ×3 (09:14→17:25)
[2019-08-31] MEDS: PANTOPRAZOLE 40 MG VIAL IV SCH (09:14)
[2019-08-31] MEDS: FINASTERIDE 5 MG TABLET PO SCH (09:14)
[2019-08-31] MEDS: ATORVASTATIN 20 MG TABLET PO SCH (09:15)
[2019-08-31] MEDS: FUROSEMIDE 40 MG TABLET PO SCH (09:15)
[2019-08-31] MEDS: TAMSULOSIN 0.4 MG CAPSULE PO SCH (09:15)
[2019-08-31] MEDS: POTASSIUM CHLORIDE 10 MEQ TABLET PO SCH ×2 (09:15→21:59)
[2019-08-31] MEDS: OMEGA 3 ACID ETHYL ESTERS 1 GM CAPSULE PO SCH (09:15)
[2019-08-31] MEDS: carvediloL 12.5 MG TABLET PO SCH ×2 (09:15→22:00)
[2019-08-31] MEDS: NORTRIPTYLINE 25 MG CAPSULE PO SCH (17:25)
[2019-08-31] MEDS: MIRTAZAPINE 30 MG TABLET PO SCH (17:25)
[2019-09-01] MEDS: CLINDAMYCIN 300 MG CAPSULE NG SCH ×4 (00:11→17:07)
[2019-09-01] MEDS: INSULIN LISPRO 100 UNIT/ML SUBCUT SCH ×4 (00:13→17:07)
[2019-09-01 07:10] LABS: Basophils % 0.3 % (0.0-0.8); Eosinophils # 0.2 10*3/uL (0.0-0.87); Eosinophils % 3.7 % (0.00-10.9); Hematocrit 27.3 VOL% (42.0-52.0); Hemoglobin 9.1 GM/DL (14.0-18.0); Immature Granulocytes % 0.3 %; Immature Granulocytes Absolute 0.02 #; Lymphocytes # 1.4 10*3/uL (1.4-4.0); Lymphocytes % 24.3 % (21.2-54.2); Mean Corpuscular HGB Conc 33.3 GM/DL (32-36); Mean Corpuscular Volume 92.5 FL (87-102); Monocytes % 10.7 % (1.7-12.7); Neutrophils % 60.7 % (38.7-73.9); Platelet Count 207 T/CUMM (130-400); Red Blood Count 2.95 MC/CUMM (3.8-5.5); White Blood Count 5.7 T/CUMM (4-12)
[2019-09-01 07:28] LABS: Calcium 8.3 MG/DL (8.5-10.1); Osmolality,Calculated 283.5 MOS/KG (273-304)
[2019-09-01] MEDS: FUROSEMIDE 40 MG TABLET PO SCH (09:35)
[2019-09-01] MEDS: carvediloL 12.5 MG TABLET PO SCH ×2 (09:35→20:53)
[2019-09-01] MEDS: ASCORBIC ACID 500 MG TABLET PO SCH ×2 (09:35→20:53)
[2019-09-01] MEDS: POTASSIUM CHLORIDE 10 MEQ TABLET PO SCH ×2 (09:35→20:53)
[2019-09-01] MEDS: PANTOPRAZOLE 40 MG VIAL IV SCH (09:36)
[2019-09-01] MEDS: TAMSULOSIN 0.4 MG CAPSULE PO SCH (09:36)
[2019-09-01] MEDS: ATORVASTATIN 20 MG TABLET PO SCH (09:36)
[2019-09-01] MEDS: CARBIDOPA/LEVODOPA 25-250 MG TABLET PO SCH ×3 (09:36→17:07)
[2019-09-01] MEDS: FINASTERIDE 5 MG TABLET PO SCH (09:37)
[2019-09-01] MEDS: OMEGA 3 ACID ETHYL ESTERS 1 GM CAPSULE PO SCH (09:37)
[2019-09-01] MEDS: NORTRIPTYLINE 25 MG CAPSULE PO SCH (17:06)
[2019-09-01] MEDS: MIRTAZAPINE 30 MG TABLET PO SCH (17:07)
[2019-09-02] MEDS: CLINDAMYCIN 300 MG CAPSULE NG SCH ×4 (00:10→17:32)
[2019-09-02] MEDS: INSULIN LISPRO 100 UNIT/ML SUBCUT SCH ×4 (00:20→18:46)
[2019-09-02] MEDS: TAMSULOSIN 0.4 MG CAPSULE PO SCH (10:06)
[2019-09-02] MEDS: OMEGA 3 ACID ETHYL ESTERS 1 GM CAPSULE PO SCH (10:06)
[2019-09-02] MEDS: FINASTERIDE 5 MG TABLET PO SCH (10:06)
[2019-09-02] MEDS: ATORVASTATIN 20 MG TABLET PO SCH (10:06)
[2019-09-02] MEDS: ASCORBIC ACID 500 MG TABLET PO SCH ×2 (10:06→20:51)
[2019-09-02] MEDS: carvediloL 12.5 MG TABLET PO SCH ×2 (10:06→20:51)
[2019-09-02] MEDS: FUROSEMIDE 40 MG TABLET PO SCH (10:06)
[2019-09-02] MEDS: POTASSIUM CHLORIDE 10 MEQ TABLET PO SCH ×2 (10:07→20:51)
[2019-09-02] MEDS: CARBIDOPA/LEVODOPA 25-250 MG TABLET PO SCH ×3 (10:09→17:32)
[2019-09-02] MEDS: PANTOPRAZOLE 40 MG VIAL IV SCH (10:09)
[2019-09-02] MEDS: MIRTAZAPINE 30 MG TABLET PO SCH (17:32)
[2019-09-02] MEDS: NORTRIPTYLINE 25 MG CAPSULE PO SCH (17:32)
[2019-09-03] MEDS: INSULIN LISPRO 100 UNIT/ML SUBCUT SCH ×3 (00:55→13:28)
[2019-09-03] MEDS: CLINDAMYCIN 300 MG CAPSULE NG SCH ×3 (00:55→12:06)
[2019-09-03] MEDS: FUROSEMIDE 40 MG TABLET PO SCH (09:52)
[2019-09-03] MEDS: OMEGA 3 ACID ETHYL ESTERS 1 GM CAPSULE PO SCH (09:52)
[2019-09-03] MEDS: CARBIDOPA/LEVODOPA 25-250 MG TABLET PO SCH ×2 (09:52→12:06)
[2019-09-03] MEDS: ASCORBIC ACID 500 MG TABLET PO SCH (09:52)
[2019-09-03] MEDS: PANTOPRAZOLE 40 MG VIAL IV SCH (09:53)
[2019-09-03] MEDS: FINASTERIDE 5 MG TABLET PO SCH (09:53)
[2019-09-03] MEDS: TAMSULOSIN 0.4 MG CAPSULE PO SCH (09:53)
[2019-09-03] MEDS: carvediloL 12.5 MG TABLET PO SCH (09:53)
[2019-09-03] MEDS: ATORVASTATIN 20 MG TABLET PO SCH (09:53)
[2019-09-03] MEDS: POTASSIUM CHLORIDE 10 MEQ TABLET PO SCH (09:53)
[2019-09-03 13:01] VITALS: BP 118/67
== END 2019-09-03 14:55 | disposition swing bed (61) | DRG 207 ==
LOC: N.TELEN → SUATTDRO 16:55 → OBSVTOIN 16:55 → N.ICU 08-17 06:45 → N.5E 08-23 14:04 → N.ICU 08-25 01:21 → N.TELEN 08-26 10:06
PROVIDERS: ADMIT Internal Medicine; ATTEND Internal Medicine

== ENCOUNTER 2019-12-08 07:08 | Inpatient (IN) ==
[2019-12-08] MEDS ORDERED: FUROSEMIDE 40 MG/4 ML VIAL IV STA (07:52)
[2019-12-08] MEDS ORDERED: cefTRIAXone 1,000 MG in SODIUM CHLORIDE 0.9% 100 ML IV STA (07:52)
[2019-12-08 08:37] LABS: Basophils % 0.5 % (0.0-0.8); Eosinophils % 0.3 % (0.00-10.9); Hematocrit 31.8 VOL% (42.0-52.0); Hemoglobin 10.5 GM/DL (14.0-18.0); Immature Granulocytes % 0.4 %; Immature Granulocytes Absolute 0.03 #; Lymphocytes # 1.9 10*3/uL (1.4-4.0); Lymphocytes % 25.7 % (21.2-54.2); Mean Platelet Volume 9.3 FL (9.6-12.0); Monocytes % 10.3 % (1.7-12.7); Neutrophils % 62.8 % (38.7-73.9); Red Blood Count 3.18 MC/CUMM (3.8-5.5); Red Cell Distribution Width 15.6 % (9.3-17.3); White Blood Count 7.5 T/CUMM (4-12)
[2019-12-08 08:40] LABS: Platelet Count 113 T/CUMM (130-400)
[2019-12-08 08:50] LABS: PT Patient Result 11.1 SECS (9.8-11.9)
[2019-12-08 09:06] LABS: Bilirubin,Total 0.7 MG/DL (0.2-1.0); Osmolality,Calculated 279.7 MOS/KG (273-304); Total Protein 6.8 G/DL (6.4-8.3)
[2019-12-08 09:15] LABS: Apearance,Urine CLEAR (Clear); Bilirubin,Urine Negative (Negative); Blood, Urine Moderate mg/dL (Negative); Glucose,Urine (UA) Negative (Negative); Hyaline Casts,Urine 1 /LPF (0-3); Ketones,Urine 5 mg/dL (Negative); Mucus,Urine Occasional /LPF (Occasional); Nitrite,Urine Negative (Negative); Protein,Urine Negative; RBC,Urine 102 /HPF (0-4); Urine Color Yellow (Yellow); Urine Specific Gravity 1.012 (1.001-1.035); Urine Urobilinogen < 2.0 EU/DL (0.2-1.0); WBC,Urine 2 /HPF (0-6)
[2019-12-08] MEDS ORDERED: MAGNESIUM SULF RIDER 4 GM in PREMIX 1 EACH IV PRN (10:23)
[2019-12-08] MEDS ORDERED: MAGNESIUM SULF RIDER 2 GM in PREMIX 1 EACH IV PRN (10:23)
[2019-12-08] MEDS ORDERED: ALUMINUM/MAGNES/SIMETH MAX STR 30 ML UDCUP PO PRN (10:27)
[2019-12-08] MEDS ORDERED: ONDANSETRON 4 MG/2 ML VIAL IV PRN (10:27)
[2019-12-08] MEDS ORDERED: LACTULOSE 20 GM/30 ML UDCUP PO PRN (10:27)
[2019-12-08] MEDS ORDERED: hydrALAZINE 20 MG/1 ML VIAL IV PRN (10:27)
[2019-12-08] MEDS ORDERED: ZALEPLON 5 MG CAPSULE PO PRN (10:27)
[2019-12-08] MEDS ORDERED: DOCUSATE SODIUM 100 MG CAPSULE PO PRN (10:27)
[2019-12-08] MEDS ORDERED: SIMETHICONE CHEW 125 MG TABLET PO PRN (10:27)
[2019-12-08] MEDS ORDERED: GLUCAGON 1 MG VIAL IM PRN (10:27)
[2019-12-08] MEDS ORDERED: diphenhydrAMINE CAP 25 MG CAPSULE PO PRN (10:27)
[2019-12-08] MEDS ORDERED: CALCIUM CARBONATE CHEW 500 MG TABLET PO PRN (10:27)
[2019-12-08] MEDS ORDERED: DEXTROSE 50% 25 GM/50 ML VIAL IV PRN (10:27)
[2019-12-08] MEDS ORDERED: guaiFENesin/DM ER 600-30 MG TABLET PO PRN (10:27)
[2019-12-08] MEDS ORDERED: BISACODYL 5 MG TABLET PO PRN (10:27)
[2019-12-08 11:21] LABS: ABG Base Excess -0.2 MMOL/L (-2.5-2.5); ABG HCO3 24.3 MMOL/L (20-26); ABG Oxygen Saturation 99.8 % (95-100); ABG PCO2 35.1 MM HG (35-48); ABG PH 7.435 (7.35-7.45); ABG TCO2 21.2 MMOL/L (23-27)
[2019-12-08] MEDS ORDERED: DILTIAZEM 30 MG TABLET PO PRN (14:43)
[2019-12-08] MEDS ORDERED: APIXABAN 2.5 MG TABLET PO SCH (17:00)
[2019-12-08] MEDS: CARBIDOPA/LEVODOPA 25-250 MG TABLET PO SCH ×2 (17:40→19:09)
[2019-12-08] MEDS: methylPREDNISolone SOD SUC 40 MG/1 ML VIAL IV SCH ×2 (17:40→22:34)
[2019-12-08] MEDS: FUROSEMIDE 40 MG/4 ML VIAL IV SCH (17:41)
[2019-12-08] MEDS: ACETAMINOPHEN 325 MG TABLET PO PRN (17:44)
[2019-12-08] MEDS: carvediloL 12.5 MG TABLET PO SCH (17:44)
[2019-12-08] MEDS: SOTALOL 80 MG TABLET PO SCH (17:44)
[2019-12-08] MEDS: busPIRone 5 MG TABLET PO SCH (17:44)
[2019-12-08] MEDS: MIRTAZAPINE 30 MG TABLET PO SCH (17:44)
[2019-12-08] MEDS: NORTRIPTYLINE 25 MG CAPSULE PO SCH (17:44)
[2019-12-08] MEDS ORDERED: NITROGLYCERIN SL 0.4 MG TABLET SL PRN (19:26)
[2019-12-08] MEDS: ENOXAPARIN 80 MG/0.8 ML SYRINGE SUBCUT SCH (22:34)
[2019-12-08] MEDS: FLUTICASONE/SALMETEROL 100-50 DISKUS 14 DOSE INH SCH (22:34)
[2019-12-09] MEDS: methylPREDNISolone SOD SUC 40 MG/1 ML VIAL IV SCH ×3 (04:45→20:20)
[2019-12-09 06:51] LABS: Basophils % 0.2 % (0.0-0.8); Hematocrit 30.4 VOL% (42.0-52.0); Hemoglobin 10.2 GM/DL (14.0-18.0); Immature Granulocytes % 0.4 %; Immature Granulocytes Absolute 0.02 #; Lymphocytes # 1.1 10*3/uL (1.4-4.0); Lymphocytes % 19.4 % (21.2-54.2); Mean Corpuscular HGB Conc 33.6 GM/DL (32-36); Mean Platelet Volume 9.6 FL (9.6-12.0); Monocytes % 4.2 % (1.7-12.7); Neutrophils % 75.8 % (38.7-73.9); Platelet Count 136 T/CUMM (130-400); Red Blood Count 3.07 MC/CUMM (3.8-5.5); Red Cell Distribution Width 15.6 % (9.3-17.3); White Blood Count 5.4 T/CUMM (4-12)
[2019-12-09 07:06] LABS: Albumin 2.8 G/DL (3.4-5.0); Bilirubin,Total 0.7 MG/DL (0.2-1.0); Calcium 8.1 MG/DL (8.5-10.1); Osmolality,Calculated 285.8 MOS/KG (273-304); Risk Ratio 2.35; Total Protein 7.1 G/DL (6.4-8.3); VLDL CHOLESTEROL 10.4 MG/DL
[2019-12-09] MEDS: ATORVASTATIN 20 MG TABLET PO SCH (09:42)
[2019-12-09] MEDS: OMEGA 3 ACID ETHYL ESTERS 1 GM CAPSULE PO SCH (09:42)
[2019-12-09] MEDS: TAMSULOSIN 0.4 MG CAPSULE PO SCH (09:42)
[2019-12-09] MEDS: carvediloL 12.5 MG TABLET PO SCH ×2 (09:42→16:24)
[2019-12-09] MEDS: SOTALOL 80 MG TABLET PO SCH ×2 (09:42→16:23)
[2019-12-09] MEDS: busPIRone 5 MG TABLET PO SCH ×2 (09:42→16:24)
[2019-12-09] MEDS: ASPIRIN EC 81 MG TABLET PO SCH (09:43)
[2019-12-09] MEDS: FINASTERIDE 5 MG TABLET PO SCH (09:43)
[2019-12-09] MEDS: PANTOPRAZOLE 40 MG TABLET PO SCH (09:45)
[2019-12-09] MEDS: CARBIDOPA/LEVODOPA 25-250 MG TABLET PO SCH ×3 (09:45→16:24)
[2019-12-09] MEDS: FUROSEMIDE 40 MG/4 ML VIAL IV SCH ×2 (10:15→15:54)
[2019-12-09] MEDS: FLUTICASONE/SALMETEROL 100-50 DISKUS 14 DOSE INH SCH ×2 (10:16→20:21)
[2019-12-09] MEDS: ENOXAPARIN 80 MG/0.8 ML SYRINGE SUBCUT SCH ×2 (10:16→20:20)
[2019-12-09] MEDS: MIRTAZAPINE 30 MG TABLET PO SCH (16:24)
[2019-12-09] MEDS: NORTRIPTYLINE 25 MG CAPSULE PO SCH (16:24)
[2019-12-09] MEDS ORDERED: METOPROLOL TARTRATE 25 MG TABLET PO SCH (20:00)
[2019-12-10] MEDS: CARBIDOPA/LEVODOPA 25-250 MG TABLET PO SCH ×5 (00:57→20:50)
[2019-12-10] MEDS: methylPREDNISolone SOD SUC 40 MG/1 ML VIAL IV SCH ×2 (04:32→12:32)
[2019-12-10 06:04] LABS: Basophils % 0.1 % (0.0-0.8); Immature Granulocytes % 0.5 %; Immature Granulocytes Absolute 0.06 #; Lymphocytes # 0.8 10*3/uL (1.4-4.0); Lymphocytes % 6.3 % (21.2-54.2); Mean Corpuscular Volume 96.4 FL (87-102); Mean Platelet Volume 9.9 FL (9.6-12.0); Monocytes % 5.6 % (1.7-12.7); Neutrophils % 87.5 % (38.7-73.9); Platelet Count 142 T/CUMM (130-400); Red Blood Count 1.69 MC/CUMM (3.8-5.5); Red Cell Distribution Width 15.3 % (9.3-17.3); White Blood Count 12.9 T/CUMM (4-12)
[2019-12-10 06:14] LABS: Hematocrit 16.3 VOL% (42.0-52.0); Hemoglobin 5.7 GM/DL (14.0-18.0)
[2019-12-10 06:25] LABS: Bilirubin,Total 0.4 MG/DL (0.2-1.0); Calcium 6.7 MG/DL (8.5-10.1); Osmolality,Calculated 287.8 MOS/KG (273-304); Total Protein 6.1 G/DL (6.4-8.3)
[2019-12-10 07:26] LABS: Hematocrit 28.9 VOL% (42.0-52.0); Immature Granulocytes % 0.7 %; Immature Granulocytes Absolute 0.09 #; Lymphocytes # 0.7 10*3/uL (1.4-4.0); Mean Corpuscular HGB Conc 33.9 GM/DL (32-36); Mean Platelet Volume 9.7 FL (9.6-12.0); Monocytes % 5.3 % (1.7-12.7); Platelet Count 138 T/CUMM (130-400); Red Cell Distribution Width 15.3 % (9.3-17.3); White Blood Count 12.1 T/CUMM (4-12)
[2019-12-10 07:31] LABS: Red Blood Count 2.98 MC/CUMM (3.8-5.5)
[2019-12-10 07:32] LABS: Hemoglobin 9.8 GM/DL (14.0-18.0)
[2019-12-10 07:45] LABS: Albumin 2.7 G/DL (3.4-5.0); Bilirubin,Total 0.4 MG/DL (0.2-1.0); Calcium 7.7 MG/DL (8.5-10.1); Osmolality,Calculated 294.7 MOS/KG (273-304); Total Protein 6.7 G/DL (6.4-8.3)
[2019-12-10] MEDS: FUROSEMIDE 40 MG/4 ML VIAL IV SCH ×2 (09:44→17:50)
[2019-12-10] MEDS: TAMSULOSIN 0.4 MG CAPSULE PO SCH (09:44)
[2019-12-10] MEDS: carvediloL 12.5 MG TABLET PO SCH ×2 (09:44→17:50)
[2019-12-10] MEDS: SOTALOL 80 MG TABLET PO SCH ×2 (09:44→17:50)
[2019-12-10] MEDS: busPIRone 5 MG TABLET PO SCH ×2 (09:44→17:50)
[2019-12-10] MEDS: ATORVASTATIN 20 MG TABLET PO SCH (09:45)
[2019-12-10] MEDS: FINASTERIDE 5 MG TABLET PO SCH (09:45)
[2019-12-10] MEDS: ASPIRIN EC 81 MG TABLET PO SCH (09:45)
[2019-12-10] MEDS: FLUTICASONE/SALMETEROL 100-50 DISKUS 14 DOSE INH SCH ×2 (09:45→20:50)
[2019-12-10] MEDS: OMEGA 3 ACID ETHYL ESTERS 1 GM CAPSULE PO SCH (09:45)
[2019-12-10] MEDS: PANTOPRAZOLE 40 MG TABLET PO SCH (09:45)
[2019-12-10] MEDS: ACETAMINOPHEN 325 MG TABLET PO PRN (09:46)
[2019-12-10 10:06] LABS: Folate > 24.0 NG/ML (5.4-24.0); Vitamin B12 389 PG/ML (211-911)
[2019-12-10 10:38] LABS: % Iron Saturation 13.7 % (18-50); Ferritin 194.2 ng/ml (26-388)
[2019-12-10] MEDS ORDERED: cefTRIAXone 1,000 MG in SYRINGE 1 EACH IV SCH (15:00)
[2019-12-10] MEDS: NORTRIPTYLINE 25 MG CAPSULE PO SCH (17:50)
[2019-12-10] MEDS: MIRTAZAPINE 30 MG TABLET PO SCH (17:50)
[2019-12-10] MEDS: ENOXAPARIN 80 MG/0.8 ML SYRINGE SUBCUT SCH (20:50)
[2019-12-11 06:03] LABS: Basophils % 0.1 % (0.0-0.8); Hematocrit 26.7 VOL% (42.0-52.0); Immature Granulocytes % 0.6 %; Immature Granulocytes Absolute 0.06 #; Lymphocytes # 0.6 10*3/uL (1.4-4.0); Lymphocytes % 5.4 % (21.2-54.2); Mean Corpuscular HGB Conc 33.7 GM/DL (32-36); Mean Corpuscular Volume 97.4 FL (87-102); Mean Platelet Volume 9.8 FL (9.6-12.0); Monocytes % 5.1 % (1.7-12.7); Neutrophils % 88.8 % (38.7-73.9); Platelet Count 129 T/CUMM (130-400); Red Blood Count 2.74 MC/CUMM (3.8-5.5); Red Cell Distribution Width 15.1 % (9.3-17.3); White Blood Count 10.7 T/CUMM (4-12)
[2019-12-11 06:32] LABS: Alanine Aminotransferase < 9 U/L (16-61); Albumin 2.5 G/DL (3.4-5.0); Alkaline Phosphatase 69 U/L (45-117); Aspartate Amino Transferase 23 U/L (0-37); Blood Urea Nitrogen 68 MG/DL (7-18); Calcium 7.8 MG/DL (8.5-10.1); Estimated Glom Filtration Rate 24 ML/MIN; Glucose 121 MG/DL (74-106); Osmolality,Calculated 297.5 MOS/KG (273-304); Total Protein 6.5 G/DL (6.4-8.3)
[2019-12-11] MEDS: CARBIDOPA/LEVODOPA 25-250 MG TABLET PO SCH ×4 (08:27→20:35)
[2019-12-11] MEDS: FINASTERIDE 5 MG TABLET PO SCH (08:27)
[2019-12-11] MEDS: busPIRone 5 MG TABLET PO SCH ×2 (08:27→16:15)
[2019-12-11] MEDS: SOTALOL 80 MG TABLET PO SCH ×2 (08:27→16:14)
[2019-12-11] MEDS: OMEGA 3 ACID ETHYL ESTERS 1 GM CAPSULE PO SCH (08:27)
[2019-12-11] MEDS: ASPIRIN EC 81 MG TABLET PO SCH (08:27)
[2019-12-11] MEDS: carvediloL 12.5 MG TABLET PO SCH ×2 (08:27→16:14)
[2019-12-11] MEDS: ATORVASTATIN 20 MG TABLET PO SCH (08:27)
[2019-12-11] MEDS: predniSONE 20 MG TABLET PO SCH (08:27)
[2019-12-11] MEDS: TAMSULOSIN 0.4 MG CAPSULE PO SCH (08:28)
[2019-12-11] MEDS: FUROSEMIDE 40 MG/4 ML VIAL IV SCH ×2 (08:28→16:15)
[2019-12-11] MEDS: PANTOPRAZOLE 40 MG TABLET PO SCH (08:28)
[2019-12-11] MEDS: FLUTICASONE/SALMETEROL 100-50 DISKUS 14 DOSE INH SCH ×2 (08:28→20:35)
[2019-12-11] MEDS: POTASSIUM CHLORIDE RIDER 10 MEQ in PREMIX 1 EACH IV PRN ×3 (08:29→14:00)
[2019-12-11] MEDS ORDERED: HYDROXYCHLOROQUINE 200 MG TABLET PO SCH (09:00)
[2019-12-11] MEDS ORDERED: ZINC SULFATE 220 MG CAPSULE PO SCH (09:00)
[2019-12-11] MEDS ORDERED: AZITHROMYCIN 250 MG TABLET PO ONE (09:00)
[2019-12-11] MEDS: POTASSIUM CHLORIDE 20 MEQ TABLET PO SCH ×2 (13:06→20:35)
[2019-12-11] MEDS: MIRTAZAPINE 30 MG TABLET PO SCH (16:14)
[2019-12-11] MEDS: NORTRIPTYLINE 25 MG CAPSULE PO SCH (16:14)
[2019-12-11] MEDS: ENOXAPARIN 80 MG/0.8 ML SYRINGE SUBCUT SCH (20:35)
[2019-12-12] MEDS: POTASSIUM CHLORIDE RIDER 10 MEQ in PREMIX 1 EACH IV PRN (00:18)
[2019-12-12] MEDS: FUROSEMIDE 40 MG/4 ML VIAL IV SCH ×2 (08:19→17:14)
[2019-12-12] MEDS: carvediloL 12.5 MG TABLET PO SCH ×2 (08:20→16:45)
[2019-12-12] MEDS: POTASSIUM CHLORIDE 20 MEQ TABLET PO SCH ×2 (08:20→21:15)
[2019-12-12] MEDS: CARBIDOPA/LEVODOPA 25-250 MG TABLET PO SCH ×4 (08:20→21:15)
[2019-12-12] MEDS: TAMSULOSIN 0.4 MG CAPSULE PO SCH (08:20)
[2019-12-12] MEDS: PANTOPRAZOLE 40 MG TABLET PO SCH (08:20)
[2019-12-12] MEDS: SOTALOL 80 MG TABLET PO SCH ×2 (08:20→16:45)
[2019-12-12] MEDS: ASPIRIN EC 81 MG TABLET PO SCH (08:21)
[2019-12-12] MEDS: ATORVASTATIN 20 MG TABLET PO SCH (08:21)
[2019-12-12] MEDS: busPIRone 5 MG TABLET PO SCH ×2 (08:21→16:45)
[2019-12-12] MEDS: OMEGA 3 ACID ETHYL ESTERS 1 GM CAPSULE PO SCH (08:21)
[2019-12-12] MEDS: predniSONE 20 MG TABLET PO SCH (08:21)
[2019-12-12] MEDS: FINASTERIDE 5 MG TABLET PO SCH (08:21)
[2019-12-12] MEDS: FLUTICASONE/SALMETEROL 100-50 DISKUS 14 DOSE INH SCH ×2 (08:39→21:15)
[2019-12-12] MEDS ORDERED: HYDROXYCHLOROQUINE 200 MG TABLET PO SCH (09:00)
[2019-12-12] MEDS ORDERED: AZITHROMYCIN 250 MG TABLET PO SCH (09:00)
[2019-12-12 11:17] LABS: Calcium 7.6 MG/DL (8.5-10.1); Osmolality,Calculated 293.7 MOS/KG (273-304)
[2019-12-12] MEDS: ACETAMINOPHEN 325 MG TABLET PO PRN (12:59)
[2019-12-12] MEDS: MIRTAZAPINE 30 MG TABLET PO SCH (16:45)
[2019-12-12] MEDS: NORTRIPTYLINE 25 MG CAPSULE PO SCH (16:45)
[2019-12-12] MEDS: ENOXAPARIN 80 MG/0.8 ML SYRINGE SUBCUT SCH (21:15)
[2019-12-13 04:48] LABS: Hematocrit 28.3 VOL% (42.0-52.0); Hemoglobin 9.3 GM/DL (14.0-18.0); Immature Granulocytes Absolute 0.07 #; Lymphocytes # 0.7 10*3/uL (1.4-4.0); Lymphocytes % 10.3 % (21.2-54.2); Mean Corpuscular HGB Conc 32.9 GM/DL (32-36); Mean Corpuscular Volume 99.3 FL (87-102); Mean Platelet Volume 9.8 FL (9.6-12.0); Monocytes % 6.2 % (1.7-12.7); Neutrophils % 82.5 % (38.7-73.9); Platelet Count 129 T/CUMM (130-400); Red Blood Count 2.85 MC/CUMM (3.8-5.5); Red Cell Distribution Width 14.9 % (9.3-17.3); White Blood Count 6.9 T/CUMM (4-12)
[2019-12-13 04:58] LABS: Calcium 8.2 MG/DL (8.5-10.1); Osmolality,Calculated 294.7 MOS/KG (273-304)
[2019-12-13] MEDS: ACETAMINOPHEN 325 MG TABLET PO PRN (07:00)
[2019-12-13 07:27] LABS: ABG Base Excess -1.8 MMOL/L (-2.5-2.5); ABG HCO3 22.8 MMOL/L (20-26); ABG Oxygen Saturation 94.3 % (95-100); ABG PCO2 28.1 MM HG (35-48); ABG PH 7.474 (7.35-7.45); ABG PO2 67.6 MM HG (80-95); ABG TCO2 18.2 MMOL/L (23-27); Allen Test Positive
[2019-12-13] MEDS: POTASSIUM CHLORIDE 20 MEQ TABLET PO SCH ×2 (09:08→21:08)
[2019-12-13] MEDS: carvediloL 12.5 MG TABLET PO SCH ×2 (09:08→16:13)
[2019-12-13] MEDS: SOTALOL 80 MG TABLET PO SCH ×2 (09:09→16:13)
[2019-12-13] MEDS: TAMSULOSIN 0.4 MG CAPSULE PO SCH (09:09)
[2019-12-13] MEDS: FINASTERIDE 5 MG TABLET PO SCH (09:09)
[2019-12-13] MEDS: OMEGA 3 ACID ETHYL ESTERS 1 GM CAPSULE PO SCH (09:09)
[2019-12-13] MEDS: busPIRone 5 MG TABLET PO SCH ×2 (09:10→16:13)
[2019-12-13] MEDS: predniSONE 20 MG TABLET PO SCH (09:10)
[2019-12-13] MEDS: PANTOPRAZOLE 40 MG TABLET PO SCH (09:10)
[2019-12-13] MEDS: ATORVASTATIN 20 MG TABLET PO SCH (09:10)
[2019-12-13] MEDS: FLUTICASONE/SALMETEROL 100-50 DISKUS 14 DOSE INH SCH ×2 (09:10→21:17)
[2019-12-13] MEDS: ASPIRIN EC 81 MG TABLET PO SCH (09:10)
[2019-12-13] MEDS: CARBIDOPA/LEVODOPA 25-250 MG TABLET PO SCH ×4 (09:11→21:09)
[2019-12-13] MEDS: FUROSEMIDE 40 MG/4 ML VIAL IV SCH ×2 (09:11→16:12)
[2019-12-13] MEDS: MIRTAZAPINE 30 MG TABLET PO SCH (16:13)
[2019-12-13] MEDS: NORTRIPTYLINE 25 MG CAPSULE PO SCH (16:13)
[2019-12-13] MEDS: ENOXAPARIN 80 MG/0.8 ML SYRINGE SUBCUT SCH (21:08)
[2019-12-14 06:10] LABS: Calcium 8.9 MG/DL (8.5-10.1)
[2019-12-14] MEDS: FLUTICASONE/SALMETEROL 100-50 DISKUS 14 DOSE INH SCH ×2 (08:30→20:57)
[2019-12-14] MEDS: POTASSIUM CHLORIDE 20 MEQ TABLET PO SCH ×2 (08:55→20:57)
[2019-12-14] MEDS: SOTALOL 80 MG TABLET PO SCH ×2 (09:48→16:10)
[2019-12-14] MEDS: FINASTERIDE 5 MG TABLET PO SCH (09:48)
[2019-12-14] MEDS: carvediloL 12.5 MG TABLET PO SCH ×2 (09:48→16:10)
[2019-12-14] MEDS: CARBIDOPA/LEVODOPA 25-250 MG TABLET PO SCH ×4 (09:48→20:57)
[2019-12-14] MEDS: PANTOPRAZOLE 40 MG TABLET PO SCH (09:48)
[2019-12-14] MEDS: ATORVASTATIN 20 MG TABLET PO SCH (09:48)
[2019-12-14] MEDS: TAMSULOSIN 0.4 MG CAPSULE PO SCH (09:48)
[2019-12-14] MEDS: FUROSEMIDE 40 MG/4 ML VIAL IV SCH ×2 (09:48→16:10)
[2019-12-14] MEDS: OMEGA 3 ACID ETHYL ESTERS 1 GM CAPSULE PO SCH (09:48)
[2019-12-14] MEDS: predniSONE 20 MG TABLET PO SCH (09:48)
[2019-12-14] MEDS: busPIRone 5 MG TABLET PO SCH ×2 (09:48→16:10)
[2019-12-14] MEDS: ASPIRIN EC 81 MG TABLET PO SCH (09:48)
[2019-12-14] MEDS ORDERED: SODIUM POLYSTYRENE SULFATE 15 GM/60 ML BOTTLE PO STA (13:55)
[2019-12-14] MEDS: MIRTAZAPINE 30 MG TABLET PO SCH (16:10)
[2019-12-14] MEDS: NORTRIPTYLINE 25 MG CAPSULE PO SCH (16:10)
[2019-12-14] MEDS: ENOXAPARIN 80 MG/0.8 ML SYRINGE SUBCUT SCH (20:56)
[2019-12-15 05:17] LABS: Hemoglobin 8.6 GM/DL (14.0-18.0); Immature Granulocytes % 1.3 %; Lymphocytes # 0.4 10*3/uL (1.4-4.0); Lymphocytes % 5.3 % (21.2-54.2); Mean Corpuscular HGB Conc 33.1 GM/DL (32-36); Mean Corpuscular Volume 99.6 FL (87-102); Mean Platelet Volume 9.7 FL (9.6-12.0); Neutrophils % 86.4 % (38.7-73.9); Platelet Count 181 T/CUMM (130-400); Red Blood Count 2.61 MC/CUMM (3.8-5.5); Red Cell Distribution Width 14.4 % (9.3-17.3); White Blood Count 7.6 T/CUMM (4-12)
[2019-12-15 05:48] LABS: Calcium 8.8 MG/DL (8.5-10.1); Osmolality,Calculated 296.8 MOS/KG (273-304)
[2019-12-15] MEDS: MORPHINE 4 MG/1 ML VIAL IV PRN ×2 (08:12→12:12)
[2019-12-15] MEDS: SOTALOL 80 MG TABLET PO SCH ×2 (09:51→16:10)
[2019-12-15] MEDS: busPIRone 5 MG TABLET PO SCH ×2 (09:52→16:10)
[2019-12-15] MEDS: TAMSULOSIN 0.4 MG CAPSULE PO SCH (09:53)
[2019-12-15] MEDS: FUROSEMIDE 40 MG/4 ML VIAL IV SCH ×2 (09:53→16:10)
[2019-12-15] MEDS: carvediloL 12.5 MG TABLET PO SCH ×2 (09:53→17:42)
[2019-12-15] MEDS: OMEGA 3 ACID ETHYL ESTERS 1 GM CAPSULE PO SCH (09:54)
[2019-12-15] MEDS: FINASTERIDE 5 MG TABLET PO SCH (09:54)
[2019-12-15] MEDS: ATORVASTATIN 20 MG TABLET PO SCH (09:54)
[2019-12-15] MEDS: FLUTICASONE/SALMETEROL 100-50 DISKUS 14 DOSE INH SCH ×2 (09:55→22:27)
[2019-12-15] MEDS: predniSONE 20 MG TABLET PO SCH (09:55)
[2019-12-15] MEDS: ASPIRIN EC 81 MG TABLET PO SCH (09:55)
[2019-12-15] MEDS: CARBIDOPA/LEVODOPA 25-250 MG TABLET PO SCH ×4 (09:56→21:52)
[2019-12-15] MEDS: PANTOPRAZOLE 40 MG TABLET PO SCH (09:56)
[2019-12-15] MEDS: POTASSIUM CHLORIDE 20 MEQ TABLET PO SCH ×2 (09:57→21:52)
[2019-12-15] MEDS ORDERED: MORPHINE 4 MG/1 ML VIAL IV PRN (11:57)
[2019-12-15] MEDS: MIRTAZAPINE 30 MG TABLET PO SCH (16:10)
[2019-12-15] MEDS: NORTRIPTYLINE 25 MG CAPSULE PO SCH (16:10)
[2019-12-15] MEDS: ENOXAPARIN 80 MG/0.8 ML SYRINGE SUBCUT SCH (21:51)
[2019-12-16 06:30] LABS: Basophils % 0.1 % (0.0-0.8); Hematocrit 27.7 VOL% (42.0-52.0); Hemoglobin 9.1 GM/DL (14.0-18.0); Immature Granulocytes % 1.6 %; Immature Granulocytes Absolute 0.11 #; Lymphocytes # 0.4 10*3/uL (1.4-4.0); Lymphocytes % 6.4 % (21.2-54.2); Mean Corpuscular HGB Conc 32.9 GM/DL (32-36); Mean Corpuscular Volume 97.9 FL (87-102); Mean Platelet Volume 10.2 FL (9.6-12.0); Monocytes % 4.5 % (1.7-12.7); Neutrophils % 87.4 % (38.7-73.9); Platelet Count 204 T/CUMM (130-400); Red Blood Count 2.83 MC/CUMM (3.8-5.5); Red Cell Distribution Width 14.4 % (9.3-17.3); White Blood Count 6.9 T/CUMM (4-12)
[2019-12-16 06:51] LABS: Calcium 8.8 MG/DL (8.5-10.1)
[2019-12-16] MEDS: SOTALOL 80 MG TABLET PO SCH ×2 (09:45→16:30)
[2019-12-16] MEDS: predniSONE 20 MG TABLET PO SCH (09:46)
[2019-12-16] MEDS: ATORVASTATIN 20 MG TABLET PO SCH (09:46)
[2019-12-16] MEDS: OMEGA 3 ACID ETHYL ESTERS 1 GM CAPSULE PO SCH (09:46)
[2019-12-16] MEDS: FINASTERIDE 5 MG TABLET PO SCH (09:46)
[2019-12-16] MEDS: POTASSIUM CHLORIDE 20 MEQ TABLET PO SCH ×2 (09:46→21:36)
[2019-12-16] MEDS: ASPIRIN EC 81 MG TABLET PO SCH (09:47)
[2019-12-16] MEDS: FUROSEMIDE 40 MG/4 ML VIAL IV SCH ×2 (09:47→16:30)
[2019-12-16] MEDS: CARBIDOPA/LEVODOPA 25-250 MG TABLET PO SCH ×4 (09:47→21:36)
[2019-12-16] MEDS: PANTOPRAZOLE 40 MG TABLET PO SCH (09:47)
[2019-12-16] MEDS: busPIRone 5 MG TABLET PO SCH ×2 (09:47→16:30)
[2019-12-16] MEDS: TAMSULOSIN 0.4 MG CAPSULE PO SCH (09:47)
[2019-12-16] MEDS: FLUTICASONE/SALMETEROL 100-50 DISKUS 14 DOSE INH SCH ×2 (09:48→21:36)
[2019-12-16] MEDS: carvediloL 12.5 MG TABLET PO SCH (09:55)
[2019-12-16] MEDS: MIRTAZAPINE 30 MG TABLET PO SCH (16:30)
[2019-12-16] MEDS: NORTRIPTYLINE 25 MG CAPSULE PO SCH (16:30)
[2019-12-16] MEDS: ENOXAPARIN 80 MG/0.8 ML SYRINGE SUBCUT SCH (21:36)
[2019-12-17] MEDS: FINASTERIDE 5 MG TABLET PO SCH (08:54)
[2019-12-17] MEDS: POTASSIUM CHLORIDE 20 MEQ TABLET PO SCH ×2 (08:54→20:15)
[2019-12-17] MEDS: predniSONE 20 MG TABLET PO SCH (08:55)
[2019-12-17] MEDS: busPIRone 5 MG TABLET PO SCH ×2 (08:55→17:22)
[2019-12-17] MEDS: TAMSULOSIN 0.4 MG CAPSULE PO SCH (08:55)
[2019-12-17] MEDS: PANTOPRAZOLE 40 MG TABLET PO SCH (08:55)
[2019-12-17] MEDS: SOTALOL 80 MG TABLET PO SCH ×2 (08:55→17:22)
[2019-12-17] MEDS: OMEGA 3 ACID ETHYL ESTERS 1 GM CAPSULE PO SCH (08:55)
[2019-12-17] MEDS: ASPIRIN EC 81 MG TABLET PO SCH (08:56)
[2019-12-17] MEDS: FLUTICASONE/SALMETEROL 100-50 DISKUS 14 DOSE INH SCH ×2 (08:56→20:15)
[2019-12-17] MEDS: ATORVASTATIN 20 MG TABLET PO SCH (08:56)
[2019-12-17] MEDS: CARBIDOPA/LEVODOPA 25-250 MG TABLET PO SCH ×4 (08:56→20:15)
[2019-12-17] MEDS: FUROSEMIDE 40 MG/4 ML VIAL IV SCH ×2 (08:59→17:21)
[2019-12-17] MEDS: MIRTAZAPINE 30 MG TABLET PO SCH (17:22)
[2019-12-17] MEDS: NORTRIPTYLINE 25 MG CAPSULE PO SCH (17:22)
[2019-12-17] MEDS: APIXABAN 2.5 MG TABLET PO SCH (20:15)
[2019-12-18] MEDS: TAMSULOSIN 0.4 MG CAPSULE PO SCH (08:59)
[2019-12-18] MEDS: SOTALOL 80 MG TABLET PO SCH ×2 (08:59→16:52)
[2019-12-18] MEDS: busPIRone 5 MG TABLET PO SCH ×2 (08:59→16:52)
[2019-12-18] MEDS: predniSONE 20 MG TABLET PO SCH (09:01)
[2019-12-18] MEDS: FINASTERIDE 5 MG TABLET PO SCH (09:01)
[2019-12-18] MEDS: ATORVASTATIN 20 MG TABLET PO SCH (09:01)
[2019-12-18] MEDS: FUROSEMIDE 40 MG/4 ML VIAL IV SCH ×2 (09:01→16:51)
[2019-12-18] MEDS: OMEGA 3 ACID ETHYL ESTERS 1 GM CAPSULE PO SCH (09:01)
[2019-12-18] MEDS: ASPIRIN EC 81 MG TABLET PO SCH (09:01)
[2019-12-18] MEDS: CARBIDOPA/LEVODOPA 25-250 MG TABLET PO SCH ×4 (09:01→20:01)
[2019-12-18] MEDS: APIXABAN 2.5 MG TABLET PO SCH ×2 (09:01→20:01)
[2019-12-18] MEDS: FLUTICASONE/SALMETEROL 100-50 DISKUS 14 DOSE INH SCH ×2 (09:02→20:00)
[2019-12-18] MEDS: POTASSIUM CHLORIDE 20 MEQ TABLET PO SCH ×2 (10:06→20:01)
[2019-12-18] MEDS: MIRTAZAPINE 30 MG TABLET PO SCH (16:52)
[2019-12-18] MEDS: NORTRIPTYLINE 25 MG CAPSULE PO SCH (16:52)
[2019-12-19 04:38] VITALS: BP 132/74
[2019-12-19] MEDS ORDERED: predniSONE 10 MG TABLET ONE (08:01)
[2019-12-19] MEDS: OMEGA 3 ACID ETHYL ESTERS 1 GM CAPSULE PO SCH (08:17)
[2019-12-19] MEDS: TAMSULOSIN 0.4 MG CAPSULE PO SCH (08:17)
[2019-12-19] MEDS: APIXABAN 2.5 MG TABLET PO SCH (08:17)
[2019-12-19] MEDS: ASPIRIN EC 81 MG TABLET PO SCH (08:17)
[2019-12-19] MEDS: POTASSIUM CHLORIDE 20 MEQ TABLET PO SCH (08:17)
[2019-12-19] MEDS: ATORVASTATIN 20 MG TABLET PO SCH (08:17)
[2019-12-19] MEDS: FINASTERIDE 5 MG TABLET PO SCH (08:17)
[2019-12-19] MEDS: SOTALOL 80 MG TABLET PO SCH (08:17)
[2019-12-19] MEDS: CARBIDOPA/LEVODOPA 25-250 MG TABLET PO SCH (08:17)
[2019-12-19] MEDS: busPIRone 5 MG TABLET PO SCH (08:17)
[2019-12-19] MEDS: FLUTICASONE/SALMETEROL 100-50 DISKUS 14 DOSE INH SCH (08:18)
[2019-12-19] MEDS: FUROSEMIDE 40 MG/4 ML VIAL IV SCH (08:18)
[2019-12-19] MEDS: predniSONE 20 MG TABLET PO SCH (08:19)
== END 2019-12-19 08:42 | disposition expired | DRG 177 ==
LOC: EDUNIT# → EDBD → N.ED 07:08 → N.EDINP 10:27 → SUATTDRO 10:27 → N.TELES 11:06 → N.TELEN 11:28 → N.2E 22:14 → N.2W 12-17 11:21
PROVIDERS: ADMIT Internal Medicine; ATTEND Internal Medicine